=== PATIENT | male | born 1930 | race Caucasian/White ===

== ENCOUNTER 2016-11-14 12:54 | Inpatient (IN) | payer BC ==
[~2016-11-14] VITALS: Ht 177.8 cm; Wt 74.9 kg
[~2016-11-14 12:54] MED LIST: AMLO5 PO; ASPI1TAB69 PO; AVOD0.5C PO; CIPR500T2 PO; METR-1 PO; PRAV20TA PO; TOPR50TA PO
[2016-11-14 13:34] VITALS: BP 137/74; PULSE 71; RESP 16; TEMP 98; O2SAT 94
[2016-11-14] MEDS ORDERED: SODIUM CHLORIDE 0.9% FLUSH 10 ML FLUSH IVF PRN (13:45)
--- NOTE | 2016-11-14 14:12 | PD ---
HPI Chief Complaint: Fall Time Seen by Provider: 13:33 Travel History International Travel<30 days: No Contact w/Intl Traveler<30days: No Traveled to known affect area: No History of Present Illness HPI Some 86-year-old male presents emergency department after a fall. He states he was initially poorly got out and was in his garage weakness when trying soften he fell. He is not really sure what made him fall. Doesn't specifically remember tripping. He fell onto his left side and hurt his left wrist and left hip. States he hit his arm against a shelf on the wall and cut his wrist a little bit. Also states he hit his head against the wall. Is not on any blood thinners. No head pain. No LOC. No significant tenderness on the scalp. He otherwise has been feeling generally well and healthy. No other complaints. History Past Medical History Narrative Medical Hypertension Hyperlipidemia BPH Social History Alcohol Use: Yes (6 VODKA'S A WEEKhe drinks alcohol 3 times per week) Tobacco Use: Yes (1/2 PACK A DAY) Allergies-Medications (Allergen,Severity, Reaction): Coded Allergies: No Known Allergies (Verified , 02/15/16) Reported Meds & Prescriptions Reported Meds & Active Scripts Active Flagyl (Metronidazole) 500 Mg Tab 500 Mg PO BID 10 Days Ciprofloxacin (Ciprofloxacin HCl) 500 Mg Tab 500 Mg PO BID 10 Days Reported Pravachol (Pravastatin) 20 Mg Tab 20 Mg PO DAILY Avodart (Dutasteride) 0.5 Mg Cap 0.5 Mg PO DAILY Toprol XL (Metoprolol Succinate) 50 Mg Tab 50 Mg PO DAILY Aspirin 81 Mg Tabdr 81 Mg PO DAILY Norvasc (Amlodipine Besylate) 5 Mg Tab 5 Mg PO DAILY Review of Systems Except as stated in HPI: all other systems reviewed are Neg Physical Exam Narrative GENERAL: Generally well-appearing 86-year-old man, no acute distress. SKIN: Focused skin assessment warm/dry. HEAD: Atraumatic. Normocephalic. EYES: Pupils equal and round. No scleral icterus. No injection or drainage. ENT: No nasal bleeding or discharge. Mucous membranes pink and moist. NECK: Moves neck freely. No evidence of injury. CARDIOVASCULAR: Regular rate and rhythm. No murmur appreciated. RESPIRATORY: No accessory muscle use. Clear to auscultation. Breath sounds equal bilaterally. GASTROINTESTINAL: Abdomen soft, non-tender, nondistended. Hepatic and splenic margins not palpable. MUSCULOSKELETAL: Left leg is externally rotated and somewhat shortened. He has pain with any range of motion of the hip. Knee is unremarkable and ankles unremarkable. He also has a lot of swelling especially dorsal ecchymosis and swelling on the left wrist. He has pretty preserved range of motion. He is a little bit of pain with palpation on the dorsal side on the radial side of the wrist. There is no tenderness over the snuff box. There is minimal tenderness of axial loading of the thumb. NEUROLOGICAL: Awake and alert. No obvious cranial nerve deficits. Motor grossly within normal limits. Normal speech. PSYCHIATRIC: Appropriate mood and affect; insight and judgment normal. Data Data Last Documented VS Vital Signs Date Time Temp Pulse Resp B/P (MAP) Pulse Ox O2 Delivery O2 Flow Rate FiO2 11/14/16 13:34 98.0 71 16 137/74 (95) 94 Orders Orders Electrocardiogram (11/14/16 13:40) Complete Blood Count With Diff (11/14/16 13:40) Comprehensive Metabolic Panel (11/14/16 13:40) Prothrombin Time / Inr (Pt) (11/14/16 13:40) Act Partial Throm Time (Ptt) (11/14/16 13:40) Urinalysis - C+S If Indicated (11/14/16 13:40) Type And Screen (11/14/16 13:40) Chest, Single Ap (11/14/16 13:40) Hip, Uni(Ap&Lat) W Ap Pelvis (11/14/16 13:40) Iv Access Insert/Monitor (11/14/16 13:40) Oximetry (11/14/16 13:40) Ice/Cold Pack (11/14/16 13:40) Ecg Monitoring (11/14/16 13:40) Sodium Chloride 0.9% Flush (Ns Flush) (11/14/16 13:45) Diet Npo (11/14/16 Lunch) Wrist, Complete ([id number]) (11/14/16 ) [facility] Medical Decision Making Medical Screen Exam Complete: Yes Emergency Medical Condition: Yes Differential Diagnosis Hip fracture, pelvic rami fractures, wrist fracture, other occult injury Narrative Course Medical decision making INITIAL: 86-year-old male for likely hip fracture on the left, possible left wrist fracture. Likely need surgery. We'll check x-rays, chest x-ray, preop labs, reassess. Pain is controlled at this time. Patient was seen in the ambulance call and will go to a medical bed as it is available. Yared Savage MD Nov 14, 2016 14:12
[2016-11-14 14:25] LABS: AUTOMATED NEUTROPHIL # 7.7 TH/MM3 (1.8-7.7); BASOPHIL # 0.1 TH/MM3 (0-0.2); BASOPHIL % 0.8 % (0.0-2.0); EOSINOPHIL # 0.2 TH/MM3 (0-0.4); EOSINOPHIL % 1.8 % (0.0-4.0); HEMATOCRIT 43.4 % (39.0-51.0); HEMO FLAGS DIFF FINAL; LYMPH % 12.9 % (9.0-44.0); LYMPHOCYTE # 1.3 TH/MM3 (1.0-4.8); MEAN CELL VOLUME 90.5 FL (80.0-100.0); MEAN CORPUSCULAR HEMOGLOBIN 31.2 PG (27.0-34.0); MEAN CORPUSCULAR HGB CONC 34.5 % (32.0-36.0); MONO % 8.1 % (0.0-8.0); NEUT % 76.4 % (16.0-70.0); PLATELET COUNT 307 TH/MM3 (150-450); RED CELL DISTRIBUTION WIDTH 13.8 % (11.6-17.2)
[2016-11-14 14:33] LABS: APTT (PATIENT) 27.1 SEC (24.3-30.1); PROTHROMBIN TIME - PATIENT 11.6 SEC (9.8-11.6)
[2016-11-14 14:40] LABS: ALT (GPT) 35 U/L (12-78); ANION GAP 7 MEQ/L (5-15); AST (GOT) 25 U/L (15-37); BICARBONATE 25.6 MEQ/L (21.0-32.0); BLOOD UREA NITROGEN 15 MG/DL (7-18); CHLORIDE 105 MEQ/L (98-107); GLOMERULAR FILTRATION RATE 67 ML/MIN (>89); POTASSIUM 3.9 MEQ/L (3.5-5.1); SODIUM (NA) 138 MEQ/L (136-145)
[2016-11-14 14:42] LABS: ALKALINE PHOSPHATASE 87 U/L (45-117); TOTAL BILIRUBIN ADULT 0.6 MG/DL (0.2-1.0)
[2016-11-14] MEDS ORDERED: MORPHINE SULFATE 4 MG/ML INJ IV PUSH ONE (15:00)
--- NOTE | 2016-11-14 15:44 | RADRPT ---
EXAM DATE/TIME: 11/14/2016 15:14 CORRECTION Corrected on: November 14, 2016; [facility] COMPARISON: HIP LEFT (AP&LAT 2/3VWS) W AP PELVIS, November 14, 2016, 15:14. WRIST LEFT COMPLETE ([id number]), Nov, 15:18. INDICATIONS : Fell today. Left hip and wrist fractures. MEDICAL HISTORY : Hypertension. SURGICAL HISTORY : Appendectomy. Cholecystectomy. ENCOUNTER: Initial ACUITY: 1 day PAIN SCORE: 0/10 LOCATION: Bilateral chest FINDINGS: A single view of the chest demonstrates the lungs to be symmetrically aerated without evidence of mas s, infiltrate or effusion. The cardiomediastinal contours are unremarkable. Osseous structures are intact. CONCLUSION: No acute disease. Sai Olsen MD on November 14, 2016 at 15:42 Board Certified Radiologist. This report was verified electronically. Sai Olsen MD on November 14, 2016 at 15:45 Board Certified Radiologist. This report was verified electronically.
--- NOTE | 2016-11-14 15:45 | RADRPT ---
EXAM DATE/TIME: 11/14/2016 15:14 [facility] COMPARISON: No previous studies available for comparison. INDICATIONS : Fell today getting out of his pool. MEDICAL HISTORY : Hypertension. SURGICAL HISTORY : Appendectomy. Cholecystectomy. ENCOUNTER: Initial ACUITY: 1 day PAIN SCORE: 9/10 LOCATION: Left hip and pelvis FINDINGS: AP and crosstable lateral views of the left hip were obtained and demonstrate a left subcapital hip f racture. The femoral head component is mildly rotated and there is mild superior migration of the fem ur. There is diffuse osteopenia and the acetabulum is intact. CONCLUSION: Left subcapital hip fracture. Sai Olsen MD on November 14, 2016 at 15:42 Board Certified Radiologist. This report was verified electronically.
--- NOTE | 2016-11-14 15:47 | RADRPT ---
EXAM DATE/TIME: 11/14/2016 15:18 [facility] COMPARISON: No previous studies available for comparison. INDICATIONS : Fell today getting out of his pool at home. MEDICAL HISTORY : None. SURGICAL HISTORY : None. ENCOUNTER: Initial ACUITY: 1 day PAIN SCORE: 6/10 LOCATION: Left wrist FINDINGS: AP, lateral and oblique views of the left wrist were obtained and demonstrate a slightly impacted com minuted distal radial fracture with fracture lines extending into the radiocarpal joint. There is a n ondisplaced fracture through the base of the ulnar styloid as well. There is diffuse osteopenia. Dege nerative changes are noted involving the first metacarpocarpal joint with joint space loss and sclero sis. There is overlying soft tissue swelling greatest along the dorsum of the wrist. CONCLUSION: 1. Mildly comminuted distal radial fracture. 2. Racture through the base of the ulnar styloid. Sai Olsen MD on November 14, 2016 at 15:45 Board Certified Radiologist. This report was verified electronically.
[2016-11-14] MEDS ORDERED: ASPI81CH CHEW (16:07)
--- NOTE | 2016-11-14 16:16 | PD ---
HPI Chief Complaint: Fall Time Seen by Provider: 16:16 Travel History International Travel<30 days: No Contact w/Intl Traveler<30days: No Traveled to known affect area: No History of Present Illness HPI 86 YO M with PMH of HTN presents to the ED for evaluation after fall today. The patient states that he had just gotten out of the pool, slipped on wet tile , fell to the left, striking his wrist and hip at the time. Denies hitting his head or LOC. He has been unable to ambulate since the accident. He does not take any blood thinners. He last ate a toaster strudel and coffee at 7 AM today. PFSH Past Medical History Cardiovascular Problems: Yes (HTN) High Cholesterol: Yes Genitourinary: Yes (ENLARGED PROSTATE) Hypertension: Yes Past Surgical History Appendectomy: Yes Cholecystectomy: Yes Eye Surgery: Yes (CATARACTS) Tonsillectomy: Yes Social History Alcohol Use: Yes (he drinks alcohol 3 times per week) Tobacco Use: Yes (1/2 PACK A DAY) Substance Use: No Allergies-Medications (Allergen,Severity, Reaction): Coded Allergies: No Known Allergies (Verified , 02/15/16) Reported Meds & Prescriptions Reported Meds & Active Scripts Active Reported Aspirin 81 Mg Chew 81 Mg CHEW DAILY Pravachol (Pravastatin) 20 Mg Tab 20 Mg PO DAILY Avodart (Dutasteride) 0.5 Mg Cap 0.5 Mg PO DAILY Toprol XL (Metoprolol Succinate) 50 Mg Tab 50 Mg PO DAILY Norvasc (Amlodipine Besylate) 5 Mg Tab 5 Mg PO DAILY Review of Systems Except as stated in HPI: all other systems reviewed are Neg Physical Exam Narrative GENERAL: Well-nourished, well-developed white male in no acute distress. SKIN: Focused skin assessment warm/dry. HEAD: Normocephalic. EYES: No scleral icterus. No injection or drainage. NECK: Supple, trachea midline. No JVD or lymphadenopathy. CARDIOVASCULAR: Regular rate and rhythm without murmurs, gallops, or rubs. RESPIRATORY: Breath sounds equal bilaterally. No accessory muscle use. GASTROINTESTINAL: Abdomen soft, non-tender, nondistended. MUSCULOSKELETAL: No cyanosis, or edema. FOCUSED LEFT UPPER EXTREMITY EXAM: 2+ radial pulse. Ecchymosis noted over the distal wrist. Tender to palpation of the distal radius. Patient is able to wiggle his fingers. Sensation intact to light touch distally. FOCUSED LEFT LOWER EXTREMITY EXAM: 2+ DP pulse. The leg is slightly internally rotated. No obvious shortening. TTP of the anterolateral aspect of the hip. Neurovascularly intact. BACK: Nontender without obvious deformity. No CVA tenderness. Data Data Last Documented VS Vital Signs Date Time Temp Pulse Resp B/P (MAP) Pulse Ox O2 Delivery O2 Flow Rate FiO2 11/14/16 15:57 66 18 96 Room Air 11/14/16 13:34 98.0 137/74 (95) Orders Orders Electrocardiogram (11/14/16 13:40) Complete Blood Count With Diff (11/14/16 13:40) Comprehensive Metabolic Panel (11/14/16 13:40) Prothrombin Time / Inr (Pt) (11/14/16 13:40) Act Partial Throm Time (Ptt) (11/14/16 13:40) Urinalysis - C+S If Indicated (11/14/16 13:40) Type And Screen (11/14/16 13:40) Chest, Single Ap (11/14/16 13:40) Hip, Uni(Ap&Lat) W Ap Pelvis (11/14/16 13:40) Iv Access Insert/Monitor (11/14/16 13:40) Oximetry (11/14/16 13:40) Ice/Cold Pack (11/14/16 13:40) Ecg Monitoring (11/14/16 13:40) Sodium Chloride 0.9% Flush (Ns Flush) (11/14/16 13:45) Diet Npo (11/14/16 Lunch) Wrist, Complete (Fsh2vla) (11/14/16 ) Morphine Inj (Morphine Inj) (11/14/16 15:00) Admit Order (Ed Use Only) (11/14/16 16:50) Consult Orthopedic (11/14/16 ) Admit To Inpatient (11/14/16 ) Vital Signs (Adult) Q4H (11/14/16 16:50) Activity Oob With Assistance (11/14/16 16:50) Diet Heart Healthy (11/14/16 Dinner) Sodium Chlor 0.9% 1000 Ml Inj (Ns 1000 M (11/14/16 17:00) Sodium Chloride 0.9% Flush (Ns Flush) (11/14/16 17:00) Sodium Chloride 0.9% Flush (Ns Flush) (11/14/16 21:00) Acetaminophen (Tylenol) (11/14/16 17:00) Ondansetron Inj (Zofran Inj) (11/14/16 17:00) Resp Oxygen Feroz C Titrat 1-4 L (11/14/16 ) Pt Request For Service (11/14/16 16:50) Scd Bilateral/Knee High MARCO A.BID (11/14/16 16:50) Naloxone Inj (Narcan Inj) (11/14/16 17:00) Docusate Sodium-Senna (Magalie-Colace) (11/14/16 21:00) Magnesium Hydroxide Liq (Milk Of Magnesi (11/14/16 17:00) Sennosides (Senokot) (11/14/16 17:00) Bisacodyl Supp (Dulcolax Supp) (11/14/16 17:00) Lactulose Liq (Lactulose Liq) (11/14/16 17:00) Inpatient Certification (11/14/16 ) Acetamin-Hydrocod 325-5 Mg ([place] 5-325 (11/14/16 17:00) Hydromorphone Pf Inj (Dilaudid Pf Inj) (11/14/16 17:00) Npo After Midnight W/ Po Meds (11/15/16 Breakfast) Labs Laboratory Tests Test 11/14/16 14:02 White Blood Count 10.0 TH/MM3 Red Blood Count 4.80 MIL/MM3 Hemoglobin 15.0 GM/DL Hematocrit 43.4 % Mean Corpuscular Volume 90.5 FL Mean Corpuscular Hemoglobin 31.2 PG Mean Corpuscular Hemoglobin Concent 34.5 % Red Cell Distribution Width 13.8 % Platelet Count 307 TH/MM3 Mean Platelet Volume 7.5 FL Neutrophils (%) (Auto) 76.4 % Lymphocytes (%) (Auto) 12.9 % Monocytes (%) (Auto) 8.1 % Eosinophils (%) (Auto) 1.8 % Basophils (%) (Auto) 0.8 % Neutrophils # (Auto) 7.7 TH/MM3 Lymphocytes # (Auto) 1.3 TH/MM3 Monocytes # (Auto) 0.8 TH/MM3 Eosinophils # (Auto) 0.2 TH/MM3 Basophils # (Auto) 0.1 TH/MM3 CBC Comment DIFF FINAL Differential Comment Prothrombin Time 11.6 SEC Prothromb Time International Ratio 1.0 RATIO Activated Partial Thromboplast Time 27.1 SEC Blood Urea Nitrogen 15 MG/DL Creatinine 1.05 MG/DL Random Glucose 107 MG/DL Total Protein 7.8 GM/DL Albumin 3.9 GM/DL Calcium Level 9.0 MG/DL Alkaline Phosphatase 87 U/L Aspartate Amino Transf (AST/SGOT) 25 U/L Alanine Aminotransferase (ALT/SGPT) 35 U/L Total Bilirubin 0.6 MG/DL Sodium Level 138 MEQ/L Potassium Level 3.9 MEQ/L Chloride Level 105 MEQ/L Carbon Dioxide Level 25.6 MEQ/L Anion Gap 7 MEQ/L Estimat Glomerular Filtration Rate 67 ML/MIN MDM Medical Decision Making Medical Screen Exam Complete: Yes Emergency Medical Condition: Yes Differential Diagnosis fracture versus dislocation versus wrist sprain versus other Narrative Course 86 YO M with PMH of HTN presents to the ED for evaluation after fall today. The patient states that he had just gotten out of the pool, slipped on wet tile , fell to the left, striking his wrist and hip at the time. Denies hitting his head or LOC. He has been unable to ambulate since the accident. He does not take any blood thinners. He last ate a toaster strudel and coffee at 7 AM today. The patient was seen by Dr. Savage in the ambulance lauren. Pain is under control on my eval. Xrays reveal left subcapital hip fracture, comminuted left distal radius fracture and fracture of the base of the ulnar styloid. Left wrist was splinted. I spoke with Dr. Zapata who plans surgery tomorrow morning. He'd liked the patient made nothing by mouth at midnight tonight. Dr. Kyle agrees to accept the patient to the medicine service. See ortho and medicine notes for disposition. Laurel Casanova Nov 14, 2016 16:16
[2016-11-14 17:00] VITALS: BP 130/62; PULSE 70; RESP 14; O2SAT 97
[2016-11-14] MEDS ORDERED: ONDANSETRON HCL 4 MG/2 ML VIAL IVP PRN (17:00)
[2016-11-14] MEDS ORDERED: HYDROmorphone HCL PF 0.5 MG/0.5 ML SYRINGE IV PUSH PRN (17:00)
[2016-11-14] MEDS ORDERED: BISACODYL 10 MG SUPP RECTAL PRN (17:00)
[2016-11-14] MEDS ORDERED: MAGNESIUM HYDROXIDE SUSP 30 ML CUP PO PRN (17:00)
[2016-11-14] MEDS ORDERED: ACETAMINOPHEN/HYDROcodone 325 MG/5 MG TAB PO PRN (17:00)
[2016-11-14] MEDS ORDERED: NALOXONE HCL 0.4 MG/ML AMP IV PRN (17:00)
[2016-11-14] MEDS ORDERED: LACTULOSE SYRUP 20 GM/30 ML CUP PO PRN (17:00)
[2016-11-14] MEDS ORDERED: SENNOSIDES 8.6 MG TAB PO PRN (17:00)
[2016-11-14] MEDS ORDERED: ACETAMINOPHEN 325 MG TAB PO PRN (17:00)
[2016-11-14] MEDS ORDERED: SODIUM CHLORIDE 0.9% FLUSH 10 ML FLUSH IV FLUSH PRN (17:00)
--- NOTE | 2016-11-14 17:04 | HHI.HP ---
[facility] Lucia Yu MD Admission Diagnosis left hip fracture, left wrist fracture Diagnoses: Chief Complaint: Fall Travel History International Travel<30 Days: No Contact w/Intl Traveler <30 Da: No Traveled to Known Affected Are: No History of Present Illness Mr. Thompson is an 86-year-old left handed male with a history of hypertension, hyperlipidemia who presents to the emergency department on 11/14/2016 after a fall. He fell onto his left side and sustained pain on his left wrist and left hip. This morning, patient went into the swimming pool and remained there for a while. Afterwards, he went to his garage and wanted to change into some dry clothes. After he took his wet clothes off, he felt as if something caught his foot and he fell on his left side. He did not have any chest pain, shortness of breath, palpitation prior to his fall. Denies any cough, abdominal pain. Denies any changes in bladder or bowel habits. ED work up indicated left wrist and left hip fracture. Review of Systems Except as stated in HPI: all other systems reviewed are Neg Past Family Social History Past Medical History Hypertension Hyperlipidemia Benign prostatic hyperplasia Past Surgical History Cataract surgery, Appendectomy, Tonsillectomy. Reported Medications Flagyl (Metronidazole) 500 Mg Tab 500 Mg PO BID 10 Days Ciprofloxacin (Ciprofloxacin HCl) 500 Mg Tab 500 Mg PO BID 10 Days Reported Pravachol (Pravastatin) 20 Mg Tab 20 Mg PO DAILY Avodart (Dutasteride) 0.5 Mg Cap 0.5 Mg PO DAILY Toprol XL (Metoprolol Succinate) 50 Mg Tab 50 Mg PO DAILY Aspirin 81 Mg Tabdr 81 Mg PO DAILY Norvasc (Amlodipine Besylate) 5 Mg Tab 5 Mg PO DAILY Allergies: Coded Allergies: No Known Allergies (Verified , 02/15/16) Family History Mother - Alzheimer's disease Father - Aortic Aneurysm Social History Drinks 64 because per week. Smokes half a pack a day. Denies illicit drugs. Physical Exam Vital Signs Vital Signs Date Time Temp Pulse Resp B/P (MAP) Pulse Ox O2 Delivery O2 Flow Rate FiO2 11/14/16 15:57 66 18 96 Room Air 11/14/16 13:34 98.0 71 16 137/74 (95 94 Physical Exam GENERAL: This is a well-nourished, well-developed patient, in no apparent distress. SKIN: No rashes, ecchymoses or lesions. Warm and dry. HEAD: Atraumatic. Normocephalic. No temporal or scalp tenderness. EYES: Pupils equal round and reactive. No injection or drainage. ENT: Nose without bleeding, purulent drainage or septal hematoma. Airway patent. NECK: Trachea midline. No lymphadenopathy. Supple, nontender, no meningeal signs. CARDIOVASCULAR: Regular rate and rhythm without murmurs, gallops, or rubs. No JVD. RESPIRATORY: Clear to auscultation. Breath sounds equal bilaterally. No wheezes , rales, or rhonchi. GASTROINTESTINAL: Abdomen soft, non-tender, nondistended. No guarding. MUSCULOSKELETAL: Extremities without clubbing, cyanosis, or edema. NEUROLOGICAL: Awake and alert. Cranial nerves II through XII intact. No focal neurological deficits. Normal speech. Laboratory Laboratory Tests Test 11/14/16 14:02 White Blood Count 10.0 Red Blood Count 4.80 Hemoglobin 15.0 Hematocrit 43.4 Mean Corpuscular Volume 90.5 Mean Corpuscular Hemoglobin 31.2 Mean Corpuscular Hemoglobin Concent 34.5 Red Cell Distribution Width 13.8 Platelet Count 307 Mean Platelet Volume 7.5 Neutrophils (%) (Auto) 76.4 Lymphocytes (%) (Auto) 12.9 Monocytes (%) (Auto) 8.1 Eosinophils (%) (Auto) 1.8 Basophils (%) (Auto) 0.8 Neutrophils # (Auto) 7.7 Lymphocytes # (Auto) 1.3 Monocytes # (Auto) 0.8 Eosinophils # (Auto) 0.2 Basophils # (Auto) 0.1 CBC Comment DIFF FINAL Differential Comment Prothrombin Time 11.6 Prothromb Time International Ratio 1.0 Activated Partial Thromboplast Time 27.1 Blood Urea Nitrogen 15 Creatinine 1.05 Random Glucose 107 Total Protein 7.8 Albumin 3.9 Calcium Level 9.0 Alkaline Phosphatase 87 Aspartate Amino Transf (AST/SGOT) 25 Alanine Aminotransferase (ALT/SGPT) 35 Total Bilirubin 0.6 Sodium Level 138 Potassium Level 3.9 Chloride Level 105 Carbon Dioxide Level 25.6 Anion Gap 7 Estimat Glomerular Filtration Rate 67 Result Diagram: 11/14/16 1402 11/14/16 1402 Imaging Last Impressions Hip and Pelvis X-Ray 11/14/16 1340 Signed Impressions: Service Date/Time: Monday, November 14, 2016 15:14 - CONCLUSION: Left subcapital hip fracture. Sai Olsen MD Chest X-Ray 11/14/16 1340 Signed Impressions: Service Date/Time: Monday, November 14, 2016 15:14 - CONCLUSION: No acute disease. Sai Olsen MD Wrist X-Ray 11/14/16 0000 Signed Impressions: Service Date/Time: Monday, November 14, 2016 15:18 - CONCLUSION: 1. Mildly comminuted distal radial fracture. 2. Racture through the base of the ulnar styloid. MD Javon Sampson VTE Risk Assessment Caprini VTE Risk Assessment: Mod/High Risk (score >= 2) Caprini Risk Assessment Model Point Value = 1 Point Value = 2 Point Value = 3 Point Value = 5 Age 41-60 Minor surgery BMI > 25 kg/m2 Swollen legs Varicose veins or History of unexplained or recurrent spontaneous Oral contraceptives or hormone replacement Sepsis (< 1 month) Serious lung disease, including pneumonia (< 1 month) Abnormal pulmonary function Acute myocardial infarction Congestive heart failure (< 1 month) History of inflammatory bowel disease Medical patient at bed rest Age 61-74 Arthroscopic surgery Major open surgery (> 45 min) Laparoscopic surgery (> 45 min) Malignancy Confined to bed (> 72 hours) Immobilizing plaster cast Central venous access Age >= 75 History of VTE Family history of VTE Factor V Leiden Prothrombin [id number] Lupus anticoagulant Anticardiolipin antibodies Elevated serum homocysteine Heparin-induced thrombocytopenia Other congenital or acquired thrombophilia Stroke (< 1 month) Elective arthroplasty Hip, pelvis, or leg fracture Acute spinal cord injury (< 1 month) Prophylaxis Regimen Total Risk Factor Score Risk Level Prophylaxis Regimen 0-1 Low Early ambulation 2 Moderate Order ONE of the following: *Sequential Compression Device (SCD) *Heparin 5000 units SQ BID 3-4 Higher Order ONE of the following medications: *Heparin 5000 units SQ TID *Enoxaparin/Lovenox 40 mg SQ daily (WT < 150 kg, CrCl > 30 mL/min) *Enoxaparin/Lovenox 30 mg SQ daily (WT < 150 kg, CrCl > 10-29 mL/min) *Enoxaparin/Lovenox 30 mg SQ BID (WT < 150 kg, CrCl > 30 mL/min) AND/OR *Sequential Compression Device (SCD) 5 or more Highest Order ONE of the following medications: *Heparin 5000 units SQ TID (Preferred with Epidurals) *Enoxaparin/Lovenox 40 mg SQ daily (WT < 150 kg, CrCl > 30 mL/min) *Enoxaparin/Lovenox 30 mg SQ daily (WT < 150 kg, CrCl > 10-29 mL/min) *Enoxaparin/Lovenox 30 mg SQ BID (WT < 150 kg, CrCl > 30 mL/min) AND *Sequential Compression Device (SCD) Assessment and Plan Problem List: (1) Fracture of left hip ICD Code: S72.002A - Fracture of unspecified part of neck of left femur, initial encounter for closed fracture (2) Left wrist fracture ICD Code: S62.102A - Fracture of unspecified carpal bone, left wrist, initial encounter for closed fracture (3) Hyperlipidemia ICD Code: E78.5 - Hyperlipidemia, unspecified (4) Hypertension ICD Code: I10 - Essential (primary) hypertension Assessment and Plan Mr. Thompson is a pleasant 86-year-old male with a history of hypertension, hyperlipidemia who presented to the emergency department after a fall. Radiological studies indicated he sustained left wrist fracture as well as left hip fracture. Orthopedic surgery was consulted and patient is scheduled for surgical intervention on 11/15/2016. - Left hip fracture - Left wrist fracture - Orthopedic surgery consulted. - We'll keep patient nothing by mouth midnight except meds - Acetaminophen, Finley, Dilaudid when necessary for pain. - Post surgical DVT prophylaxis per surgery. - EKG reviewed by me, shows normal sinus rhythm. Low risk for surgery. - Hypertension - Hyperlipidemia - Continue metoprolol succinate 50 mg daily, amlodipine 5 mg daily, pravastatin 20 mg by mouth daily. - Benign prostatic hyperplasia - Continue dutasteride 0.5 mg by mouth daily. - Tobacco use - Alcohol use - Will keep patient on CIWA-r protocol. - Patient does not want nicotine patches. He also does not want to quit smoking. - He was advised by me as well as the orthopedic surgeon to quit smoking as it will help with wound healing. Full code. SCDs. Physician Certification 2 Midnight Certification Type: Admission for Inpatient Services Order for Inpatient Services The services are ordered in accordance with Medicare regulations or non- Medicare payer requirements, as applicable. In the case of services not specified as inpatient-only, they are appropriately provided as inpatient services in accordance with the 2-midnight benchmark. Estimated LOS (days): 3 days is the estimated time the patient will need to remain in the hospital, assuming treatment plan goals are met and no additional complications. Post-Hospital Plan: [facility] Kyle DO Nov 14, 2016 17:04
[2016-11-14] MEDS: SODIUM CHLOR 0.9% 1000 ML INJ 1,000 ML IV SCH (17:23)
[2016-11-14 17:28] LABS: BLOOD, URINE NEG (NEG); COMMENT (UR) CATH-CULT NOT IND; CULTURE IF INDICATED CATH CULTURE NOT IND; GLUCOSE,URINE NEG (NEG); KETONE, URINE 10 mg/dL (NEG); MUCUS URINE FEW /lpf (OCC); NITRITE,URINE NEG (NEG); URINE COLOR YELLOW (YELLW/STRAW)
[2016-11-14] MEDS ORDERED: LORazepam 1 MG TAB PO PRN (17:30)
[2016-11-14] MEDS ORDERED: LORazepam 2 MG TAB PO PRN (17:30)
[2016-11-14] MEDS ORDERED: LORazepam 2 MG/ML VIAL IV PUSH PRN ×4 (17:30)
[2016-11-14] MEDS ORDERED: FLUMAZENIL 0.5 MG/5 ML VIAL IV PUSH PRN (17:30)
[2016-11-14 18:33] VITALS: BP 124/62
[2016-11-14 19:30] VITALS: O2SAT 97
[2016-11-14 20:15] VITALS: BP 146/75; PULSE 75; RESP 17; TEMP 97.8; O2SAT 94
[2016-11-14] MEDS: DOCUSATE SODIUM 50 MG/SENNA 8.6 MG TAB PO SCH (21:01)
[2016-11-14] MEDS: SODIUM CHLORIDE 0.9% FLUSH 10 ML FLUSH IV FLUSH SCH (21:02)
[2016-11-15] VITALS (8 sets, daily range): BP systolic 122–171; BP diastolic 69–83; PULSE 71–90; RESP 17–18; TEMP 95.9–97.5; O2SAT 92–94
[2016-11-15] MEDS ORDERED: CHLORHEXIDINE GLUCONATE 2 % 1 PACK (2 CLOTHS) TOPICAL PRN (02:45)
[2016-11-15] MEDS ORDERED: POVIDONE IODINE 5% (ANTISEPSIS KIT) 4 APPLICATIONS EACH NARE PRN (02:45)
[2016-11-15] MEDS ORDERED: LACTATED RINGER'S 1000 ML IV PRN (02:45)
[2016-11-15] MEDS ORDERED: METOPROLOL TARTRATE 25 MG TAB PO PRN (02:45)
[2016-11-15] MEDS ORDERED: SODIUM CHLORID 0.9% 500 ML IV PRN (02:45)
[2016-11-15] MEDS ORDERED: INSULIN HUMAN REGULAR 1,000 UNITS/10 ML VIAL SQ PRN (02:45)
[2016-11-15] MEDS: SODIUM CHLOR 0.9% 1000 ML INJ 1,000 ML IV SCH ×2 (03:41→14:40)
[2016-11-15] MEDS ORDERED: WALKER WHEELS/F1 MIS (06:52)
[2016-11-15] MEDS ORDERED: COMMODE 3-IN-11 MIS (06:52)
[2016-11-15] MEDS: FINASTERIDE 5 MG TAB PO SCH (09:00)
[2016-11-15] MEDS ORDERED: ASPIRIN 81 MG CHEW TAB CHEW SCH (09:00)
[2016-11-15] MEDS: SODIUM CHLORIDE 0.9% FLUSH 10 ML FLUSH IV FLUSH SCH ×2 (09:00→21:00)
[2016-11-15] MEDS: METOPROLOL SUCCINATE 50 MG EXTENDED RELEASE TAB PO SCH (09:00)
[2016-11-15] MEDS: DOCUSATE SODIUM 50 MG/SENNA 8.6 MG TAB PO SCH ×2 (09:00→22:30)
[2016-11-15] MEDS: amLODIPine BESYLATE 5 MG TAB PO SCH (09:00)
[2016-11-15] MEDS ORDERED: GENTAMICIN SULFATE 80 MG/2 ML VIAL ONE (09:40)
[2016-11-15] MEDS ORDERED: VANCOMYCIN HCL 1000 MG VIAL ONE (09:41)
[2016-11-15] MEDS ORDERED: ceFAZolin 2 GM PREMIX 50 ML ONE (09:41)
[2016-11-15] MEDS ORDERED: BUPIVACAINE HCL PF 0.5% 30 ML VIAL ONE (09:42)
[2016-11-15] MEDS ORDERED: TRANEXAMIC ACID INJ 800 MG in SODIUM CHLORIDE 0.9% INJ 100 ML IV SCH ×2 (09:45→14:10)
[2016-11-15] MEDS ORDERED: FAMOTIDINE 20 MG/2 ML VIAL ONE (09:50)
[2016-11-15] MEDS ORDERED: ACETAMINOPHEN 1000 MG/100 ML 100 ML IV ONE (09:50)
[2016-11-15] MEDS ORDERED: BUPIVACAINE LIPOSO PF 1.3% INJ 20 ML in SODIUM CHLORIDE 0.9% INJ 40 ML IRRIGATION SCH (10:15)
--- NOTE | 2016-11-15 11:53 | MB ---
cc: BRITTNEE GUERRA DATE OF CONSULTATION: 11/15/2016. REASON FOR CONSULTATION: Left hip fracture and left wrist fracture. HISTORY OF PRESENT ILLNESS: The patient is an 86-year-old man who was at his home in his usual state of health when in he went to join a friend in the pool. He got out of the pool. He was getting out of his swim trunks. He tripped landing onto the left hip, the left wrist and hitting his head. The patient denies any loss of consciousness. He denies any problems with the hip in the past. He says he has had a previous fracture of the wrist many years ago that has healed up well without any long-term sequelae. He is left hand dominant. He says he is unable to ambulate. He had pain with any attempts at ambulation. He denies any new numbness or tingling. He denies any shortness of breath or syncope. REVIEW OF SYSTEMS: A twelve-point review of systems is negative except as noted in the history of present illness. PAST MEDICAL HISTORY 1. Hypertension. 2. Hyperlipidemia. 3. Benign prostate hypertrophy. MEDICATIONS: See the chart. He is not on any blood thinners. SOCIAL HISTORY: The patient does smoke half a pack per day for many years. He does drink regularly. FAMILY HISTORY: Noncontributory. PHYSICAL EXAMINATION: VITAL SIGNS: The patient's temperature is 98.0, pulse is 71, respirations 16, blood pressure 137/74. GENERAL: The patient is Awake, alert and oriented times three with normal affect, insight and judgment. He does not appear is a significant amount of distress. HEAD: Atraumatic. OROPHARYNX: Moist. EYES: Extraocular muscles intact. NECK: The neck is supple. HEART: Regular rate and rhythm. LUNGS: Clear to auscultation bilaterally. ABDOMEN: The abdomen is soft, nontender and nondistended. BACK: No costovertebral angle tenderness. EXTREMITIES: Examination of the left upper extremity shows he does have deformity of the wrist of a moderate degree with some mild swelling. No wounds were noted on the volar aspect of the wrist. He can move the fingers but somewhat limited. He has brisk capillary refill about the digits. Normal sensation distally. He has no tenderness about the elbow or the shoulder. The right upper extremity, shoulder, elbow and wrist have good range of motion actively. The right knee and right ankle have normal alignment. No tenderness. No swelling. The left leg is held shortened and rotated. There is mild swelling about the left hip. No wounds were noted anterolaterally. He can move the toes very well. He has 1+ dorsalis pedis pulse with brisk capillary refill about the toes. LABORATORY STUDIES: White cell count of 10.0, hematocrit 43.4, platelet count of 307,000. Glucose 107, creatinine 1.05. RADIOLOGICAL STUDIES: I did review the images myself along with the reports, which shows that the left wrist has a comminuted distal radius fracture intraarticular which is displaced and angulated of a mild to moderate degree. There is a fracture of the base of the ulnar styloid as well. X-rays of the left hip show displaced femoral neck fracture. IMPRESSION: 1. Displaced femoral neck fracture left side. 2. Left distal radius fracture intraarticular three-part displaced and angulated. DECISION-MAKING: This is a complicated situation especially given that he has had polytrauma to multiple different extremities. I do recommend surgical management because nonoperative management would likely lead to very significant dysfunction. He likely would not be able to walk effectively without surgical management. Additionally, he has deformity of the wrist and would likely develop pain and some loss of function with loss of quartz orientator strength. The patient is left hand dominant. I have recommended surgery on the left wrist, especially because he requires surgery on the left hip and during his recuperative period, he will likely need the left wrist for use of a platform walker, which I feel would be likely more effective with fixation of the wrist and also there would be less chance of having displacement of the fracture if we do move forward with definitive fixation. For the left hip, I recommend left hip hemiarthroplasty and for the left wrist, I recommend open reduction internal fixation with plate and screws. The patient understands that there are risks associated with each of these surgeries that are somewhat unique to the individual areas and somewhat generalized and global such as injury to nerves, blood vessels, bleeding, infection, failure of hardware, need for re-operation, continued pain, loss of range of motion of associated joints, leg length inequality, hip dislocation, inability to ambulate, weakness of the hand, numbness of the hand or the lower leg, DVT, pulmonary embolus, pneumonia and . The patient's medical physician hospitalist who is admitting this patient was at the bedside at the same time that I was and we discussed and it sounds like he is going to be able to get cleared for surgical management for the morning. The patient will be NPO and he is having a splint applied to his left arm. MD TIA Kay/SANTA /5:25 PM /11:29 AM
[2016-11-15] MEDS ORDERED: NORC5TAB PO (11:57)
[2016-11-15] MEDS ORDERED: ENOX40P SQ (11:57)
[2016-11-15] MEDS ORDERED: ASPI325T PO (11:57)
[2016-11-15] MEDS ORDERED: ALUMINUM/MAGNESIUM/SIMETH 30 ML CUP PO PRN (12:00)
[2016-11-15] MEDS ORDERED: MAGNESIUM HYDROXIDE SUSP 30 ML CUP PO PRN (12:00)
[2016-11-15] MEDS ORDERED: ACETAMINOPHEN/HYDROcodone 325 MG/5 MG TAB PO PRN ×2 (12:00)
[2016-11-15] MEDS ORDERED: ONDANSETRON HCL 4 MG/2 ML VIAL IV PUSH ONE (12:00)
[2016-11-15] MEDS ORDERED: SODIUM CHLORIDE 0.9% FLUSH 5 ML FLUSH IVF PRN (12:00)
[2016-11-15] MEDS ORDERED: ZOLPIDEM TARTRATE 5 MG TAB PO PRN (12:00)
[2016-11-15] MEDS ORDERED: MIDAZOLAM HCL 2 MG/2 ML VIAL IV ONE (12:00)
[2016-11-15] MEDS ORDERED: PROPOFOL 200 MG/20 ML AMP IV ONE (12:00)
[2016-11-15] MEDS ORDERED: NALOXONE HCL 0.4 MG/ML AMP IV PRN (12:00)
[2016-11-15] MEDS ORDERED: NEOSTIGMINE 3 MG/3 ML SYR IV ONE (12:00)
[2016-11-15] MEDS ORDERED: diphenhydrAMINE HCL 50 MG/ML VIAL IV PRN (12:00)
[2016-11-15] MEDS ORDERED: ENOXAPARIN SODIUM 40 MG/0.4 ML SYRINGE SQ SCH (12:00)
[2016-11-15] MEDS ORDERED: Post-op Orders (for Pharmacy) MISC XX ONE (12:00)
[2016-11-15] MEDS ORDERED: MORPHINE SULFATE 4 MG/ML INJ IV PUSH PRN (12:00)
[2016-11-15] MEDS ORDERED: ONDANSETRON HCL 4 MG/2 ML VIAL IVP PRN (12:00)
[2016-11-15] MEDS ORDERED: BISACODYL 10 MG SUPP RECTAL PRN (12:00)
--- NOTE | 2016-11-15 12:11 | PD.OP ---
cc: Michoacano Zapata MD Operative Report Date of Surgery: Nov 15, 2016 Preoperative Diagnosis: Left hip displaced femoral neck fracture. Left distal radius fracture intra-articular three-part Postoperative Diagnosis: Same Procedure: Left hip treatment of displaced femoral neck fracture with hemiarthroplasty. Left distal radius fracture open reduction and internal fixation of three-part intra-articular fracture Anesthesia: Gen. Surgeon: Michoacano Zapata Welder Repair(s): JOSE Savage The surgical procedure was assisted by my Advanced Registered Nurse Practitioner. My ROLLER SKATES ASSEMBLER presence was necessary throughout this case for the manipulation and positioning of the surgical extremity. My ROLLER SKATES ASSEMBLER was assisting me throughout the duration of this procedure. The skill set of an Advance Registered Nurse Practitioner was medically necessary to complete this procedure. During the surgical case, the director surgical was working at the back table and the Advance Registered Nurse Practitioner was directly assisting me. Operation and Findings: IMPLANT DESCRIPTION: Hip: 1. Corail femoral stem size 14, no collar, standard offset. 2. Bipolar femoral head/neck 52, +1.5 Wrist: 1. Synthes precontoured distal radius plate ESTIMATED BLOOD LOSS: 150 cc. Tourniquet time: 15 minutes at 250 mmHg of pressure left upper extremity The patient received intravenous vancomycin and Ancef. JUSTIFICATION FOR PROCEDURE: This patient has a displaced femoral neck fracture and a displaced distal radius fracture. The patient understands the risks of surgery include but are not limited to injury to nerves, blood vessels, bleeding, infection, leg length discrepancy, continued pain, inability to ambulate, DVT, pulmonary embolus, pneumonia, stroke, heart attack, and . PROCEDURE: The patient was brought back to the operative theatre. Adequate anesthesia was obtained. The patient was carefully placed on the operative table in the lateral decubitus position with an axillary roll and a well-padded down leg. The lower extremity was prepped and draped in the usual sterile fashion. We proceeded with a standard curvilinear incision centered around the tip of the greater trochanter. We then dissected through the deep fascia and placed a Charnley retractor protecting the sciatic nerve. The greater trochanteric bursa was reflected. We then incised through the piriformis attachment and tagged this with a #2 FiberWire. We then incised through the capsule in a T- shaped fashion and tagged this with a #2 FiberWire as well. We identified a displaced femoral neck fracture. An osteotomy was performed through the residual femoral neck. This bone was then removed followed by removal of the femoral head. The acetabulum was inspected and adequate cartilage stock was identified. We then trialed the femoral head in the acetabulum. The proximal femur was prepared with a rongeur, then a box osteotome, then a canal finder followed by a lateralizing reamer. We sequentially broached the proximal femur. We calcar planed the proximal femur and irrigated removing any remnants of the bone. We trialed the hip with the broach in place. The final femoral stem was impacted into position. Leg lengths were evaluated. We evaluated stability of the hip with the hip in the "position of sleep" and the hip flexed up to 90 and internally rotated. We additionally tested both a "shuck" test and hip extension, confirming there was no undue tension while flexing the knee to 90 during full hip extension. The final bipolar head was impacted and the hip was reduced. Once again we irrigated. We then repaired the capsule and the piriformis with the FiberWire suture. The deep fascia was closed with a #2 Stratafix, followed by 2-0 Vicryl and Dermabond dressing. We took down all of the drapes and exchanged instruments. The patient was placed into the supine position. A well-padded nonsterile tourniquet was applied. The left upper extremity was prepped and draped in usual sterile fashion. Local anesthetic was given, and the arm was exsanguinated. The tourniquet was raised to 250 mmHg of pressure. We made a standard incision over the volar aspect of the forearm. We then dissected through the flexor carpi radialis sub- sheath. The pronator quadratus was reflected. We now visualized the distal radius fracture very well. The fracture was anatomically reduced both visually and via fluoroscopy. We provisionally held the fracture reduced and then applied a Synthes precontoured distal radius plate into the appropriate position. The plate was secured to the distal radius first with the sliding screw hole. This was then followed by locking screws distally and proximally. We took final fluoroscopic imaging of the wrist. We found no intra-articular penetration of the screws. The patient had full range of motion of the wrist with no crepitus. The tourniquet was released and hemostasis was achieved. The patient had a 2+ radial pulse. We irrigated the incision thoroughly. We then closed skin with 2 -0 Vicryl followed by 3-0 nylon. The arm was dressed and a volar splint was applied. The postoperative plan for the wrist is to start early range of motion of the wrist. The post-op plan for the hip is to start weight-bear as tolerated, with the use of a platform walker. We will follow posterior total hip precautions, including the use of a canvas knee splint. DVT prophylaxis will be performed with SCDs, EMILY king, early mobilization, and Lovenox followed by aspirin. Michoacano Zapata MD Nov 15, 2016 12:11
[2016-11-15] MEDS ORDERED: DO NOT ADM ANY ANTICOAGULANT DRUGS PRN (13:12)
[2016-11-15] MEDS ORDERED: RESP: ALBUTEROL 2.5 MG/3 ML NEB (PRN) ONE (13:25)
--- NOTE | 2016-11-15 15:00 | RADRPT ---
EXAM DATE/TIME: 11/15/2016 12:46 [facility] COMPARISON: No previous studies available for comparison. INDICATIONS : ORIF left wrist. MEDICAL HISTORY : None. SURGICAL HISTORY : None. ENCOUNTER: Initial ACUITY: 1 day PAIN SCORE: Non-responsive. LOCATION: Left wrist FINDINGS: Anatomic alignment fine ORIF distal radius. CONCLUSION: Anatomic alignment Frankie Bravo MD FACR on November 15, 2016 at 14:58 Board Certified Radiologist. This report was verified electronically.
--- NOTE | 2016-11-15 16:10 | RADRPT ---
EXAM DATE/TIME: 11/15/2016 15:12 [facility] COMPARISON: HIP LEFT (AP&LAT 2/3VWS) W AP PELVIS, November 14, 2016, 15:14. INDICATIONS : Post operative x-ray. MEDICAL HISTORY : Hypertension. SURGICAL HISTORY : Appendectomy. Cholecystectomy. ENCOUNTER: Initial ACUITY: 1 day PAIN SCORE: Non-responsive. LOCATION: Left Hip and Pelvis. 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 Prosthesis is well-sea ana maría. Alignment is anatomic. A fracture is not appreciated. CONCLUSION: Anatomic alignment. Frankie Bravo MD FACR Board Certified Radiologist. This report was verified electronically.
--- NOTE | 2016-11-15 17:39 | HHI.PR ---
Subjective Remarks Follow up for left hip fracture and left wrist fracture following a fall. Patient underwent surgical intervention today. Per RN, he was somewhat agitated after surgery. However, currently resting in bed. Objective Vitals Vital Signs Date Time Temp Pulse Resp B/P (MAP) Pulse Ox O2 Delivery O2 Flow Rate FiO2 11/15/16 16:00 95.9 83 17 133/69 (90) 93 11/15/16 15:15 97.4 77 16 133/64 (87) 95 Nasal Cannula 4 11/15/16 15:00 73 16 114/64 (81) 93 Nasal Cannula 4 11/15/16 14:51 Nasal Cannula 4.00 11/15/16 14:45 72 16 120/65 (83) 93 Nasal Cannula 4 11/15/16 14:30 75 18 142/65 (90) 94 Nasal Cannula 4 11/15/16 14:15 74 18 152/66 (94) 94 Nasal Cannula 4 11/15/16 14:00 81 22 145/60 (88) 98 Nasal Cannula 4 11/15/16 13:45 75 24 140/77 (98) 96 Aerosol Mask 8 11/15/16 13:31 97.0 82 20 142/80 (100) 84 Nasal Cannula 4 11/15/16 07:33 97.4 78 18 169/76 (107) 94 11/15/16 04:15 97.5 71 17 171/81 (111) 93 11/15/16 01:42 93 Nasal Cannula 2.00 11/15/16 00:40 96.8 76 17 135/75 (95) 92 11/14/16 20:15 97.8 75 17 146/75 (98) 94 11/14/16 19:30 97 11/14/16 19:08 Room Air 11/14/16 18:33 74 16 124/62 (82) 98 I/O 11/14/16 11/14/16 11/14/16 11/15/16 11/15/16 11/15/16 07:00 15:00 23:00 07:00 15:00 23:00 Intake Total 240 ml 570 ml 1600 ml 41 ml Output Total 100 ml 250 ml 870 ml 175 ml Balance 140 ml 320 ml 730 ml -134 ml Intake Oral 240 ml 0 ml 0 ml IV Total 570 ml 1600 ml 41 ml Output Urine Total 100 ml 250 ml 750 ml 175 ml Estimated Blood Loss 120 ml # Bowel Movements 0 0 0 Result Diagram: 11/14/16 1402 11/14/16 1402 Imaging Last Impressions Hip and Pelvis X-Ray 11/15/16 1149 Signed Impressions: Service Date/Time: Tuesday, November 15, 2016 15:12 - CONCLUSION: Anatomic alignment. Frankie Bravo MD Wrist X-Ray 11/15/16 0000 Signed Impressions: Service Date/Time: Tuesday, November 15, 2016 12:46 - CONCLUSION: Anatomic alignment Frankie Bravo MD FACR Chest X-Ray 11/14/16 1340 Signed Impressions: Service Date/Time: Monday, November 14, 2016 15:14 - CONCLUSION: No acute disease. Sai Olsen MD Objective Remarks GENERAL: Sleeping, NAD. SKIN: Warm and dry. HEAD: Normocephalic. EYES: No scleral icterus. No injection or drainage. NECK: Supple, trachea midline. No JVD or lymphadenopathy. CARDIOVASCULAR: Regular rate and rhythm without murmurs, gallops, or rubs. RESPIRATORY: Breath sounds equal bilaterally. No accessory muscle use. GASTROINTESTINAL: Abdomen soft, non-tender, nondistended. MUSCULOSKELETAL: No cyanosis, or edema. s/p left wrist, left hip surgery. BACK: Nontender without obvious deformity. No CVA tenderness. Procedures 11/15/2016 Left hip treatment of displaced femoral neck fracture with hemiarthroplasty. Left distal radius fracture open reduction and internal fixation of three-part intra-articular fracture A/P Problem List: (1) Fracture of left hip ICD Code: S72.002A - Fracture of unspecified part of neck of left femur, initial encounter for closed fracture (2) Left wrist fracture ICD Code: S62.102A - Fracture of unspecified carpal bone, left wrist, initial encounter for closed fracture (3) Hyperlipidemia ICD Code: E78.5 - Hyperlipidemia, unspecified (4) Hypertension ICD Code: I10 - Essential (primary) hypertension Assessment and Plan Mr. Thompson is a pleasant 86-year-old male with a history of hypertension, hyperlipidemia who presented to the emergency department after a fall. Radiological studies indicated he sustained left wrist fracture as well as left hip fracture. Orthopedic surgery was consulted and patient is scheduled for surgical intervention on 11/15/2016. - Left hip fracture - Left wrist fracture - Orthopedic surgery consulted. Patient underwent left hip and left wrist surgery on 11/15/2016. - Acetaminophen, Candia, Dilaudid when necessary for pain. - Post surgical DVT prophylaxis with Lovenox. - Hypertension - Hyperlipidemia - Continue metoprolol succinate 50 mg daily, amlodipine 5 mg daily, pravastatin 20 mg by mouth daily. - Benign prostatic hyperplasia - Continue dutasteride 0.5 mg by mouth daily. - Tobacco use - Alcohol use - Will keep patient on CIWA-r protocol. - Patient does not want nicotine patches. He also does not want to quit smoking. - He was advised by me as well as the orthopedic surgeon to quit smoking as it will help with wound healing. Full code. SCDs. Problem Qualifiers (1) Fracture of left hip: Qualified Codes: S72.002A - Fracture of unspecified part of neck of left femur , initial encounter for closed fracture (2) Left wrist fracture: Qualified Codes: S62.102A - Fracture of unspecified carpal bone, left wrist, initial encounter for closed fracture Bright Kyle DO Nov 15, 2016 17:39
[2016-11-15] MEDS: SODIUM CHLORIDE 0.9% FLUSH 5 ML FLUSH IVF SCH (21:00)
--- NOTE | 2016-11-15 21:33 | EKG ---
Date Performed: 11/14/2016 Time Performed: 20:33:24 PTAGE: 86 years EKG: Sinus rhythm NONSPECIFIC T-WAVE ABNORMALITY BORDERLINE ECG PREVIOUS TRACING : 11/14/2016 14.20 Compared to prior tracing no significant change DOCTOR: Iwona Pena Interpretating Date/Time 11/15/2016 21:31:19
--- NOTE | 2016-11-15 21:50 | EKG ---
Date Performed: 11/14/2016 Time Performed: 14:20:09 PTAGE: 86 years EKG: Sinus rhythm NORMAL ECG PREVIOUS TRACING : 02/15/2016 06.24 Compared to prior tracing no significant change DOCTOR: Iwona Pena Interpretating Date/Time 11/15/2016 21:50:30
[2016-11-15] MEDS: PRAVASTATIN SOD 20 MG TAB PO SCH (22:30)
[2016-11-16] MEDS: SODIUM CHLOR 0.9% 1000 ML INJ 1,000 ML IV SCH ×4 (01:11→20:50)
[2016-11-16 03:26] VITALS: BP 136/75; PULSE 80; RESP 18; TEMP 98.4; O2SAT 92
[2016-11-16 07:46] VITALS: BP 151/69; PULSE 82; RESP 19; TEMP 98.2; O2SAT 93
[2016-11-16 08:26] LABS: HEMATOCRIT 39.4 % (39.0-51.0); MEAN CELL VOLUME 91.8 FL (80.0-100.0); MEAN CORPUSCULAR HEMOGLOBIN 31.3 PG (27.0-34.0); MEAN CORPUSCULAR HGB CONC 34.1 % (32.0-36.0); PLATELET COUNT 329 TH/MM3 (150-450); RED CELL DISTRIBUTION WIDTH 13.7 % (11.6-17.2); REVIEW FLAG FINAL; WHITE BLOOD COUNT 16.7 TH/MM3 (4.0-11.0)
[2016-11-16] MEDS: SODIUM CHLORIDE 0.9% FLUSH 10 ML FLUSH IV FLUSH SCH ×2 (09:00→20:50)
[2016-11-16] MEDS: SODIUM CHLORIDE 0.9% FLUSH 5 ML FLUSH IVF SCH ×2 (09:00→20:49)
[2016-11-16] MEDS: amLODIPine BESYLATE 5 MG TAB PO SCH (09:20)
[2016-11-16] MEDS: METOPROLOL SUCCINATE 50 MG EXTENDED RELEASE TAB PO SCH (09:20)
[2016-11-16] MEDS: FINASTERIDE 5 MG TAB PO SCH (09:20)
[2016-11-16] MEDS: DOCUSATE SODIUM 50 MG/SENNA 8.6 MG TAB PO SCH ×2 (09:20→20:49)
[2016-11-16 11:40] VITALS: BP 149/76; PULSE 86; RESP 19; TEMP 97.6; O2SAT 91
--- NOTE | 2016-11-16 12:38 | PD.ORT.PN ---
Subjective Post Op Day #: 1 Subjective Remarks The patient is OOB in chair with family/friend at bedside. Patient reports mild to moderate left hip pain and mild left wrist pain. Patient states the plan is for him to go to [facility]. Objective Vitals Vital Signs Date Time Temp Pulse Resp B/P (MAP) Pulse Ox O2 Delivery O2 Flow Rate FiO2 11/16/16 11:40 97.6 86 19 149/76 (100) 91 11/16/16 11:04 Nasal Cannula 2.00 11/16/16 10:20 18 11/16/16 07:46 98.2 82 19 151/69 (96) 93 11/16/16 03:26 98.4 80 18 136/75 (95) 92 11/15/16 23:47 96.8 88 18 154/78 (103) 92 11/15/16 20:59 92 Nasal Cannula 2.00 11/15/16 20:00 Nasal Cannula 2.00 11/15/16 19:06 96.7 90 18 122/83 (96) 93 11/15/16 18:08 93 Nasal Cannula 2.00 11/15/16 16:00 95.9 83 17 133/69 (90) 93 11/15/16 15:15 97.4 77 16 133/64 (87) 95 Nasal Cannula 4 11/15/16 15:00 73 16 114/64 (81) 93 Nasal Cannula 4 11/15/16 14:51 Nasal Cannula 4.00 11/15/16 14:45 72 16 120/65 (83) 93 Nasal Cannula 4 11/15/16 14:30 75 18 142/65 (90) 94 Nasal Cannula 4 11/15/16 14:15 74 18 152/66 (94) 94 Nasal Cannula 4 11/15/16 14:00 81 22 145/60 (88) 98 Nasal Cannula 4 11/15/16 13:45 75 24 140/77 (98) 96 Aerosol Mask 8 11/15/16 13:31 97.0 82 20 142/80 (100) 84 Nasal Cannula 4 I/O 11/15/16 11/15/16 11/15/16 11/16/16 11/16/16 11/16/16 07:00 15:00 23:00 07:00 15:00 23:00 Intake Total 570 ml 1600 ml 401 ml 1896 ml Output Total 250 ml 870 ml 525 ml 350 ml Balance 320 ml 730 ml -124 ml 1546 ml Intake Oral 0 ml 0 ml 360 ml 240 ml IV Total 570 ml 1600 ml 41 ml 1656 ml Output Urine Total 250 ml 750 ml 525 ml 350 ml Estimated Blood Loss 120 ml # Bowel Movements 0 0 0 0 Result Diagram: 11/16/16 0734 11/14/16 1402 Procedures Left hip hemiarthroplasty Left distal radius fracture with ORIF Objective Remarks LUE Splint C/D/I to left wrist. Patient moves fingers and has good sensation x 5. BCR X 5. LLE Dressing is C/D/I to the left hip. EHL/TA/G intact. 2+ pedal pulse. Calf is soft and nontender. + SILT. Assessment & Plan Ortho Post Op Day #: 1 Problem List: Assessment and Plan POD #1: Left hip hemiarthroplasty Left distal radius fracture with ORIF 1. WBAT LLE, NWB LUE 2. Platform walker for ambulation 3. Posterior hip precautions for the left hip 4. Lovenox followed by ASA for DVT prophylaxis 5. Maintain splint to LUE 6. F/U in the office in [address] Zapata or JOSE Brennan 7. Plan is for discharge to [place] [facility]. Trav Rojas Nov 16, 2016 12:38
--- NOTE | 2016-11-16 13:31 | HHI.PR ---
Subjective Remarks Follow-up for left hip fracture and left wrist fracture. Patient is currently doing well. Denies any acute concerns. No fever or chills. No bowel movement yet. Objective Vitals Vital Signs Date Time Temp Pulse Resp B/P (MAP) Pulse Ox O2 Delivery O2 Flow Rate FiO2 11/16/16 11:40 97.6 86 19 149/76 (100) 91 11/16/16 11:04 Nasal Cannula 2.00 11/16/16 10:20 18 11/16/16 07:46 98.2 82 19 151/69 (96) 93 11/16/16 03:26 98.4 80 18 136/75 (95) 92 11/15/16 23:47 96.8 88 18 154/78 (103) 92 11/15/16 20:59 92 Nasal Cannula 2.00 11/15/16 20:00 Nasal Cannula 2.00 11/15/16 19:06 96.7 90 18 122/83 (96) 93 11/15/16 18:08 93 Nasal Cannula 2.00 11/15/16 16:00 95.9 83 17 133/69 (90) 93 11/15/16 15:15 97.4 77 16 133/64 (87) 95 Nasal Cannula 4 11/15/16 15:00 73 16 114/64 (81) 93 Nasal Cannula 4 11/15/16 14:51 Nasal Cannula 4.00 11/15/16 14:45 72 16 120/65 (83) 93 Nasal Cannula 4 11/15/16 14:30 75 18 142/65 (90) 94 Nasal Cannula 4 11/15/16 14:15 74 18 152/66 (94) 94 Nasal Cannula 4 11/15/16 14:00 81 22 145/60 (88) 98 Nasal Cannula 4 11/15/16 13:45 75 24 140/77 (98) 96 Aerosol Mask 8 11/15/16 13:31 97.0 82 20 142/80 (100) 84 Nasal Cannula 4 I/O 11/15/16 11/15/16 11/15/16 11/16/16 11/16/16 11/16/16 07:00 15:00 23:00 07:00 15:00 23:00 Intake Total 570 ml 1600 ml 401 ml 1896 ml Output Total 250 ml 870 ml 525 ml 350 ml Balance 320 ml 730 ml -124 ml 1546 ml Intake Oral 0 ml 0 ml 360 ml 240 ml IV Total 570 ml 1600 ml 41 ml 1656 ml Output Urine Total 250 ml 750 ml 525 ml 350 ml Estimated Blood Loss 120 ml # Bowel Movements 0 0 0 0 Result Diagram: 11/16/16 0734 11/14/16 1402 Imaging Last Impressions Hip and Pelvis X-Ray 11/15/16 1149 Signed Impressions: Service Date/Time: Tuesday, November 15, 2016 15:12 - CONCLUSION: Anatomic alignment. Frankie Bravo MD Wrist X-Ray 11/15/16 0000 Signed Impressions: Service Date/Time: Tuesday, November 15, 2016 12:46 - CONCLUSION: Anatomic alignment Frankie Bravo MD FACR Chest X-Ray 11/14/16 1340 Signed Impressions: Service Date/Time: Monday, November 14, 2016 15:14 - CONCLUSION: No acute disease. Sai Olsen MD Objective Remarks GENERAL: Sleeping, NAD. SKIN: Warm and dry. HEAD: Normocephalic. EYES: No scleral icterus. No injection or drainage. NECK: Supple, trachea midline. No JVD or lymphadenopathy. CARDIOVASCULAR: Regular rate and rhythm without murmurs, gallops, or rubs. RESPIRATORY: Breath sounds equal bilaterally. No accessory muscle use. GASTROINTESTINAL: Abdomen soft, non-tender, nondistended. MUSCULOSKELETAL: No cyanosis, or edema. s/p left wrist, left hip surgery. BACK: Nontender without obvious deformity. No CVA tenderness. Procedures 11/15/2016 Left hip treatment of displaced femoral neck fracture with hemiarthroplasty. Left distal radius fracture open reduction and internal fixation of three-part intra-articular fracture A/P Problem List: (1) Fracture of left hip ICD Code: S72.002A - Fracture of unspecified part of neck of left femur, initial encounter for closed fracture (2) Left wrist fracture ICD Code: S62.102A - Fracture of unspecified carpal bone, left wrist, initial encounter for closed fracture (3) Hyperlipidemia ICD Code: E78.5 - Hyperlipidemia, unspecified (4) Hypertension ICD Code: I10 - Essential (primary) hypertension Assessment and Plan Mr. Thompson is a pleasant 86-year-old male with a history of hypertension, hyperlipidemia who presented to the emergency department after a fall. Radiological studies indicated he sustained left wrist fracture as well as left hip fracture. Orthopedic surgery was consulted and patient is scheduled for surgical intervention on 11/15/2016. - Left hip fracture - Left wrist fracture - Orthopedic surgery consulted. Status post Left hip hemiarthroplasty, Left distal radius fracture with ORIF on 11/15/2016. - Acetaminophen, [place], Dilaudid when necessary for pain. - Post surgical DVT prophylaxis with Lovenox. - Hypertension - Hyperlipidemia - Continue metoprolol succinate 50 mg daily, amlodipine 5 mg daily, pravastatin 20 mg by mouth daily. - Benign prostatic hyperplasia - Continue dutasteride 0.5 mg by mouth daily. - Tobacco use - Alcohol use - Will keep patient on CIWA-r protocol. - Patient does not want nicotine patches. He also does not want to quit smoking. - He was advised by me as well as the orthopedic surgeon to quit smoking as it will help with wound healing. Full code. SCDs. Probable discharge to [facility] when cleared by orthopedic surgery. Problem Qualifiers (1) Fracture of left hip: Qualified Codes: S72.002A - Fracture of unspecified part of neck of left femur , initial encounter for closed fracture (2) Left wrist fracture: Qualified Codes: S62.102A - Fracture of unspecified carpal bone, left wrist, initial encounter for closed fracture Bright Kyle DO Nov 16, 2016 1:31 pm
[2016-11-16] MEDS: ENOXAPARIN SODIUM 40 MG/0.4 ML SYRINGE SQ SCH (15:21)
[2016-11-16 15:44] VITALS: BP 141/73; PULSE 83; RESP 19; TEMP 97.8; O2SAT 94
[2016-11-16 19:00] VITALS: BP 137/70; PULSE 83; RESP 18; TEMP 98.4; O2SAT 97
[2016-11-16] MEDS: MULTIVITAMINS/MINERALS THERAPEUTIC TAB PO SCH (20:49)
[2016-11-16] MEDS: PRAVASTATIN SOD 20 MG TAB PO SCH (20:49)
[2016-11-16] MEDS ORDERED: DOCUSATE SODIUM 100 MG CAP PO SCH (21:00)
[2016-11-17 00:59] VITALS: BP 141/70; PULSE 82; RESP 18; TEMP 97.9; O2SAT 98
[2016-11-17 06:23] LABS: HEMATOCRIT 39.1 % (39.0-51.0); MEAN CORPUSCULAR HEMOGLOBIN 31.3 PG (27.0-34.0); MEAN CORPUSCULAR HGB CONC 34.4 % (32.0-36.0); PLATELET COUNT 305 TH/MM3 (150-450); RED BLOOD COUNT 4.29 MIL/MM3 (4.50-5.90); RED CELL DISTRIBUTION WIDTH 13.4 % (11.6-17.2); REVIEW FLAG FINAL; WHITE BLOOD COUNT 16.3 TH/MM3 (4.0-11.0)
[2016-11-17 08:00] VITALS: BP 150/79; PULSE 76; RESP 18; TEMP 96; O2SAT 96
[2016-11-17] MEDS: METOPROLOL SUCCINATE 50 MG EXTENDED RELEASE TAB PO SCH (08:50)
[2016-11-17] MEDS: SODIUM CHLORIDE 0.9% FLUSH 10 ML FLUSH IV FLUSH SCH (08:50)
[2016-11-17] MEDS: FINASTERIDE 5 MG TAB PO SCH (08:50)
[2016-11-17] MEDS: DOCUSATE SODIUM 50 MG/SENNA 8.6 MG TAB PO SCH (08:50)
[2016-11-17] MEDS: amLODIPine BESYLATE 5 MG TAB PO SCH (08:50)
[2016-11-17] MEDS: MULTIVITAMINS/MINERALS THERAPEUTIC TAB PO SCH (08:50)
[2016-11-17] MEDS: SODIUM CHLORIDE 0.9% FLUSH 5 ML FLUSH IVF SCH (08:50)
--- NOTE | 2016-11-17 10:42 | HHI.DS ---
Discharge Summary Admission Date Nov 14, 2016 at 4:53 pm Discharge Date: Nov 17, 2016 Admitting Diagnosis left hip fracture, left wrist fracture (1) Fracture of left hip ICD Code: S72.002A - Fracture of unspecified part of neck of left femur, initial encounter for closed fracture Diagnosis: Principal (2) Left wrist fracture ICD Code: S62.102A - Fracture of unspecified carpal bone, left wrist, initial encounter for closed fracture Diagnosis: Principal (3) Hyperlipidemia ICD Code: E78.5 - Hyperlipidemia, unspecified (4) Hypertension ICD Code: I10 - Essential (primary) hypertension Procedures 11/15/2016 Left hip treatment of displaced femoral neck fracture with hemiarthroplasty. Left distal radius fracture open reduction and internal fixation of three-part intra-articular fracture Brief History - From Admission Mr. Thompson is an 86-year-old left handed male with a history of hypertension, hyperlipidemia who presents to the emergency department on 11/14/2016 after a fall. He fell onto his left side and sustained pain on his left wrist and left hip. This morning, patient went into the swimming pool and remained there for a while. Afterwards, he went to his garage and wanted to change into some dry clothes. After he took his wet clothes off, he felt as if something caught his foot and he fell on his left side. He did not have any chest pain, shortness of breath, palpitation prior to his fall. Denies any cough, abdominal pain. Denies any changes in bladder or bowel habits. ED work up indicated left wrist and left hip fracture. CBC/BMP: 11/17/16 0603 11/14/16 1402 Significant Findings Laboratory Tests Test 11/14/16 14:02 11/14/16 17:00 11/16/16 07:34 11/17/16 06:03 Neutrophils (%) (Auto) 76.4 % (16.0-70.0) Monocytes (%) (Auto) 8.1 % (0.0-8.0) Random Glucose 107 MG/DL (74-106) Estimat Glomerular Filtration Rate 67 ML/MIN (>89) Urine Turbidity HAZY (CLEAR) Urine Ketones 10 mg/dL (NEG) Urine Mucus FEW /lpf (OCC) White Blood Count 16.7 TH/MM3 (4.0-11.0) 16.3 TH/MM3 (4.0-11.0) Red Blood Count 4.30 MIL/MM3 (4.50-5.90) 4.29 MIL/MM3 (4.50-5.90) Imaging Last Impressions Hip and Pelvis X-Ray 11/15/16 1149 Signed Impressions: Service Date/Time: Tuesday, November 15, 2016 15:12 - CONCLUSION: Anatomic alignment. Frankie Bravo MD Wrist X-Ray 11/15/16 0000 Signed Impressions: Service Date/Time: Tuesday, November 15, 2016 12:46 - CONCLUSION: Anatomic alignment Frankie Bravo MD FACR Chest X-Ray 11/14/16 1340 Signed Impressions: Service Date/Time: Monday, November 14, 2016 15:14 - CONCLUSION: No acute disease. Sai Olsen MD PE at Discharge GENERAL: Sleeping, NAD. SKIN: Warm and dry. HEAD: Normocephalic. EYES: No scleral icterus. No injection or drainage. NECK: Supple, trachea midline. No JVD or lymphadenopathy. CARDIOVASCULAR: Regular rate and rhythm without murmurs, gallops, or rubs. RESPIRATORY: Breath sounds equal bilaterally. No accessory muscle use. GASTROINTESTINAL: Abdomen soft, non-tender, nondistended. MUSCULOSKELETAL: No cyanosis, or edema. s/p left wrist, left hip surgery. BACK: Nontender without obvious deformity. No CVA tenderness. Pt update on day of discharge Mr. Thompson is doing well. No acute concerns. Denies any chest pain, SOB, fever , chills. Hospital Course Mr. Thompson is a pleasant 86-year-old male with a history of hypertension, hyperlipidemia who presented to the emergency department after a fall. Radiological studies indicated he sustained left wrist fracture as well as left hip fracture. Orthopedic surgery was consulted and patient is scheduled for surgical intervention on 11/15/2016. - Left hip fracture - Left wrist fracture - Orthopedic surgery consulted. Status post Left hip hemiarthroplasty, Left distal radius fracture with ORIF on 11/15/2016. - Acetaminophen, [place], Dilaudid when necessary for pain. - Post surgical DVT prophylaxis with Lovenox. - Hypertension - Hyperlipidemia - Continue metoprolol succinate 50 mg daily, amlodipine 5 mg daily, pravastatin 20 mg by mouth daily. - Benign prostatic hyperplasia - Continue dutasteride 0.5 mg by mouth daily. - Tobacco use - Alcohol use - CIWA-r protocol. - Patient does not want nicotine patches. He also does not want to quit smoking. - He was advised by me as well as the orthopedic surgeon to quit smoking as it will help with wound healing. Patient is now being discharged to [facility]. Pt Condition on Discharge: Good Discharge Disposition: Rehab Inpatient Discharge Time: <= 30 minutes Discharge Instructions DIET: Follow Instructions for: Heart Healthy Diet Activities you can perform: Regular-No Restrictions Follow up Referrals: Orthopedics with Michoacano Zapata MD New Medications: Aspirin (Aspirin) 325 Mg Tab 325 MG PO DAILY for Prevent Blood Clot, #30 TAB 0 Refills Start Aspirin after Lovenox is completed. Commode 3-in-1 (Commode 3-in-1) 1 Mis Mis EA .ROUTE DIRECTED, #1 0 Refills Enoxaparin Inj (Lovenox Inj) 40 Mg/0.4 Ml Syr 40 MG SQ DAILY for Blood Clot Prevention for 10 Days, #10 SYRINGE 0 Refills Start Aspirin after Lovenox is completed. Hydrocodone-Acetaminophen ([place]) 5-325 mg Tab 1-2 TAB PO Q4H PRN for PAIN, #40 TAB 0 Refills Walker with Front Wheels (Walker with Front Wheels) 1 Mis Mis EA .ROUTE DIRECTED, #1 0 Refills Platform walker Continued Medications: Amlodipine (Norvasc) 5 Mg Tab 5 MG PO DAILY for Blood Pressure Management, #30 TAB 0 Refills Dutasteride (Avodart) 0.5 Mg Cap 0.5 MG PO DAILY for Manage Prostate Problems, #30 CAP 0 Refills Metoprolol Succinate ER 24 HR (Toprol XL) 50 Mg Tab 50 MG PO DAILY, #30 TAB 0 Refills Pravastatin (Pravachol) 20 Mg Tab 20 MG PO HS for Cholesterol Management, #60 TAB 0 Refills Discontinued Medications: Aspirin (Aspirin) 81 Mg Chew 81 MG CHEW DAILY, TAB 0 Refills Bright Kyle DO Nov 17, 2016 10:42 am
[2016-11-17 12:00] VITALS: BP 117/74; PULSE 84; RESP 18; TEMP 97.7; O2SAT 97
--- NOTE | 2016-11-17 13:40 | PD.ORT.PN ---
Subjective Subjective Remarks Patient is resting comfortably in bed in NAD. Patient reports minimal pain to the left wrist and hip. Patient states the plan is for him to go to [facility] today Objective Vitals Vital Signs Date Time Temp Pulse Resp B/P (MAP) Pulse Ox O2 Delivery O2 Flow Rate FiO2 11/17/16 12:00 97.7 84 18 117/74 (88) 97 11/17/16 08:00 96.0 76 18 150/79 (102) 96 11/17/16 00:59 97.9 82 18 141/70 (93) 98 11/16/16 22:18 Nasal Cannula 2.00 11/16/16 19:00 98.4 83 18 137/70 (92) 97 11/16/16 15:44 97.8 83 19 141/73 (95) 94 I/O 11/16/16 11/16/16 11/16/16 11/17/16 11/17/16 11/17/16 07:00 15:00 23:00 07:00 15:00 23:00 Intake Total 1896 ml 950 ml 360 ml 240 ml Output Total 350 ml 900 ml 550 ml 450 ml Balance 1546 ml 50 ml -190 ml -210 ml Intake Oral 240 ml 950 ml 360 ml 240 ml IV Total 1656 ml Output Urine Total 350 ml 900 ml 550 ml 450 ml # Bowel Movements 0 0 0 0 Result Diagram: 11/17/16 0603 11/14/16 1402 Procedures Left hip hemiarthroplasty Left distal radius fracture with ORIF Objective Remarks LUE Splint C/D/I to left wrist. Patient moves fingers and has good sensation x 5. BCR X 5. LLE Dressing changed with no drainage. Incision is well approximated. No erythema or s/s of infection. EHL/TA/G intact. 2+ pedal pulse. Calf is soft and nontender. + SILT. Assessment & Plan Ortho Post Op Day #: 2 Problem List: Assessment and Plan POD #2: Left hip hemiarthroplasty Left distal radius fracture with ORIF 1. WBAT LLE, NWB LUE 2. Platform walker for ambulation 3. Posterior hip precautions for the left hip 4. Lovenox followed by ASA for DVT prophylaxis 5. Maintain splint to LUE 6. F/U in the office in [address] Zapata or JOSE Brennan 7. Plan [facility]. Trav Rojas Nov 17, 2016 13:40
[2016-11-17] MEDS: SODIUM CHLOR 0.9% 1000 ML INJ 1,000 ML IV SCH (13:49)
[2016-11-17 16:00] VITALS: BP 125/75; PULSE 94; RESP 18; TEMP 98.5; O2SAT 94
[2016-11-17] MEDS: ENOXAPARIN SODIUM 40 MG/0.4 ML SYRINGE SQ SCH (16:22)
[2016-11-28] MEDS ORDERED: WHEEMIS3 (15:42)
[2016-11-28] MEDS ORDERED: COMMODE 3-IN-11 MIS (15:42)
[2016-11-28] MEDS ORDERED: GETGO ROLLING W1 MI1 (15:42)
[2016-11-30] MEDS ORDERED: PRAV20TA PO (09:57)
[2016-11-30] MEDS ORDERED: ASPI325T PO (09:57)
[2016-11-30] MEDS ORDERED: SENN1TAB PO (09:57)
[2016-11-30] MEDS ORDERED: HYDR-3516 PO (09:57)
[2016-11-30] MEDS ORDERED: AVOD0.5C PO (09:57)
[2016-11-30] MEDS ORDERED: THERTAB15 PO (09:57)
[2016-11-30] MEDS ORDERED: METO25TA6 PO (09:57)
[2016-11-30] MEDS ORDERED: PANT40TA3 PO (09:57)
[2016-11-30] MEDS ORDERED: TAMS5CAP PO (09:57)
== END 2016-11-17 18:46 | DRG 470 ==
LOC: NEPC 12:54 → NEDA 16:53 → N06A 19:46
PROVIDERS: ADMIT Hospitalist; ATTEND Hospitalist
PROC: 0SRS0JA Replacement of Left Hip Joint, Femoral Surface with Synthetic Substitute, Uncemented, Open Approach (ICD-10-PCS; principal; 2016-11-15 10:13)
PROC: 0PSJ04Z Reposition Left Radius with Internal Fixation Device, Open Approach (ICD-10-PCS; 2016-11-15 10:13)
DX: S72.012A Unspecified intracapsular fracture of left femur, initial encounter for closed fracture (principal); I10 Essential (primary) hypertension; S52.572A Other intraarticular fracture of lower end of left radius, initial encounter for closed fracture; S52.612A Displaced fracture of left ulna styloid process, initial encounter for closed fracture; E78.5 Hyperlipidemia, unspecified; F17.210 Nicotine dependence, cigarettes, uncomplicated; N40.0 Benign prostatic hyperplasia without lower urinary tract symptoms; S61.519A Laceration without foreign body of unspecified wrist, initial encounter; Z79.899 Other long term (current) drug therapy; W01.0XXA Fall on same level from slipping, tripping and stumbling without subsequent striking against object, initial encounter; Y92.094 Garage of other non-institutional residence as the place of occurrence of the external cause
CPT/HCPCS: 71010; 73100; 73110; 73502; 76000; 80053; 81001; 85025; 85027; 85610; 85730; 86850; 86900; 86901; 93005; 94150; 94664; 96374; C1713; C1776; C9290; J0131; J0690; J1580; J1650; J2060; J2250; J2270; J2405; J2710; J3010; J3370; J7030; J7120; J7613

== ENCOUNTER 2018-04-12 10:50 | Inpatient (IN) ==
--- NOTE | 2018-04-12 11:31 | ED ---
HPI General Chief complaint: Extremity Problem,Nontraumatic Stated complaint: doc sent/foot pain Time Seen by Provider: 04/12/18 11:07 Source: patient Mode of arrival: ambulatory Limitations: no limitations History of Present Illness HPI Narrative: 87-year-old male complains of left foot discomfort. Patient states that he started having discomfort to the bottom of left foot for the past 2 months. 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 Patient states that he was advised to see a vascular surgeon for vascular problem of the left foot. Patient is awaiting appointment with Dr. Wills. Patient started noticed discoloration and blister of distal aspect left foot for the past few days. Patient was advised by his personal physician to go to ED for evaluation. Patient denies any fever chills. Patient denies any chest pain or shortness of breath. Patient denies abdominal pain. Patient denies any pain to the left foot. Patient has history of bladder cancer, hypertension, hyperlipidemia. Patient is a smoker. Patient drinks alcohol occasionally. MD Complaint: Reports extremity pain Onset (ago): month(s) Pain Consistency: intermittent Location: Reports left Severity scale (1-10): 3 Quality: Reports aching Radiation: Reports none Relieving factors: nothing Exacerbating factors: nothing Associated symptoms: Reports denies other symptoms Related Data Home Medications Medication Instructions Recorded Confirmed dutasteride 0.5 mg PO DAILY 04/12/18 04/12/18 metoprolol tartrate 50 mg PO DAILY 04/12/18 04/12/18 pravastatin 20 mg PO DAILY 04/12/18 04/12/18 tamsulosin 0.4 mg PO DAILY 04/12/18 04/12/18 Allergies Allergy/AdvReac Type Severity Reaction Status Date / Time No Known Allergies Allergy Uncoded 02/15/16 06:07 Review of Systems ROS: all other systems reviewed are negative [facility] Medical History Medical History Bladder cancer (Acute) Hypertension (Acute) Surgical History Surgical History History of hip surgery (Acute) S/P wrist surgery (Acute) Social History Social History Substance History: No History of Abuse Second Hand Smoke Exposure: No Smoking Status: Current every day smoker Tobacco Type: Cigarettes How Often Do You Have a Drink Containing Alcohol: 2 to 4 times a month Recent Travel in [facility] within the Last 8 Weeks: No Recent Out of Country Travel within the Last 8 Weeks: No Immunization History Tetanus Immunization: <5 Years Exam Narrative Exam Narrative: GENERAL: Well-nourished, well-developed patient. SKIN: Focused skin assessment warm/dry. HEAD: Normocephalic. EYES: No scleral icterus. No injection or drainage. NECK: Supple, trachea midline. No JVD or lymphadenopathy. CARDIOVASCULAR: Regular rate and rhythm without murmurs, gallops, or rubs. RESPIRATORY: Breath sounds equal bilaterally. No accessory muscle use. GASTROINTESTINAL: Abdomen soft, non-tender, nondistended. MUSCULOSKELETAL: No cyanosis, or edema. BACK: Nontender without obvious deformity. No CVA tenderness. Examination of the left foot reveals purplish reddish discoloration distal aspect left foot and blisters to the distal aspect left foot and toes. DP pulses present. Posterior vertebral pulses present. The foot feels cooler on the left than on the right. Course Initial Documented Vital Signs Temperature 98.1 F 04/12/18 10:56 Pulse Rate 77 04/12/18 10:56 Respiratory Rate 14 04/12/18 10:56 Blood Pressure 143/69 H 04/12/18 10:56 Pulse Oximetry 93 L 04/12/18 10:56 Last Documented Vital Signs Temperature 98.1 F 04/12/18 10:56 Pulse Rate 69 04/12/18 12:53 Respiratory Rate 18 04/12/18 12:53 Blood Pressure 140/68 04/12/18 12:53 Pulse Oximetry 99 04/12/18 12:53 Medical Decision Making MDM Narrative Medical decision making narrative: 87-year-old male with redness purpleish and blisters to the distal aspect left foot. Vancomycin 1 g IV given. Zosyn 3.375 g IV given. Medical Screen Exam Complete: Yes Emergency Medical Condition: Yes Differential Diagnosis Differential Diagnosis: Differential diagnosis including cellulitis, osteomyelitis, gangrene Lab Data Lab results reviewed: Yes I reviewed the patient's lab results. Result diagrams: 04/12/18 11:30 04/12/18 11:30 Lab Results 04/12/18 04/12/18 04/12/18 Range/Units 11:30 11:30 11:30 WBC 13.9 H (4.0-11.0) th/mm3 RBC 4.37 L (4.50-5.90) mil/mm3 Hgb 13.6 (13.0-17.0) gm/dL Hct 39.5 (39.0-51.0) % MCV 90.3 (80.0-100.0) fL MCH 31.2 (27.0-34.0) pg MCHC 34.6 (32.0-36.0) % RDW 13.4 (11.6-17.2) % Plt Count 447 (150-450) th/mm3 MPV 8.1 (7.0-11.0) fL Neut % (Auto) 76.1 H (16.0-70.0) % Lymph % (Auto) 14.1 (9.0-44.0) % Howard % (Auto) 7.5 (0.0-8.0) % Eos % (Auto) 1.7 (0.0-4.0) % Baso % (Auto) 0.6 (0.0-2.0) % Neut # (Auto) 10.5 H (1.8-7.7) th/mm3 Lymph # (Auto) 2.0 (1.0-4.8) th/mm3 Howard # (Auto) 1.0 H (0.0-0.9) th/mm3 Eos # (Auto) 0.2 (0.0-0.4) th/mm3 Baso # (Auto) 0.1 (0.0-0.2) th/mm3 WBC Differential . Differential Comment Auto diff final PT 10.8 (9.8-11.6) sec INR 1.1 Ratio APTT 24.0 (23.4-31.7) sec Sodium 137 (136-145) meq/L Potassium 4.7 (3.5-5.1) meq/L Chloride 107 (98-107) meq/L Carbon Dioxide 21.5 (21.0-32.0) meq/L Anion Gap 9 (5-15) meq/L BUN 23 H (7-18) mg/dL Creatinine 1.31 H (0.60-1.30) mg/dL Estimated GFR 52 L (>89) mL/min Random Glucose 102 (74-106) mg/dL Calcium 8.7 (8.5-10.1) mg/dL Total Bilirubin 0.8 (0.2-1.0) mg/dL AST 29 (15-37) U/L ALT 19 (12-78) U/L Alkaline Phosphatase 89 (45-117) U/L Total Protein 8.2 (6.4-8.2) g/dL Albumin 3.5 (3.4-5.0) g/dL Imaging Data Attestation: I personally reviewed and interpreted this imaging study as follows : Radiologist's impression: Foot X-Ray 04/12/18 11:23 CONCLUSION: Osteopenia. No acute abnormality. Discharge Plan Discharge Disposition Patient Disposition: ED Admit(ED Internal Use Only) Discharge Order Discharge Orders: ED Use Only Admit Order (Routine); Ordered 04/12/18 Ordered By: Matthew Whalen Discharge Details Diagnosis: Cellulitis of foot, left Physicians Team ED Provider: Matthew Whalen Primary Care Provider: Flaco Horowitz Rxs /Orders / Referrals /Forms Prescriptions: No Action metoprolol tartrate 50 mg Tablet 50 mg PO DAILY RF: 0 pravastatin 20 mg Tablet 20 mg PO DAILY RF: 0 dutasteride 0.5 mg Capsule 0.5 mg PO DAILY RF: 0 tamsulosin 0.4 mg Capsule 0.4 mg PO DAILY RF: 0 Discharge Interventions Interventions: Vital Signs Last Done: 04/12/18 12:53 Status ED Status: Admitted Patient
[2018-04-12 11:57] LABS: Baso # (Auto) 0.1 th/mm3 (0.0-0.2); Baso % (Auto) 0.6 % (0.0-2.0); Eos # (Auto) 0.2 th/mm3 (0.0-0.4); Eos % (Auto) 1.7 % (0.0-4.0); Hematocrit 39.5 % (39.0-51.0); Hemoglobin 13.6 gm/dL (13.0-17.0); Lymph % (Auto) 14.1 % (9.0-44.0); Mean Corpuscular HGB Conc 34.6 % (32.0-36.0); Mean Corpuscular Hemoglobin 31.2 pg (27.0-34.0); Mean Corpuscular Volume 90.3 fL (80.0-100.0); Mean Platelet Volume 8.1 fL (7.0-11.0); Mono % (Auto) 7.5 % (0.0-8.0); Neut # (Auto) 10.5 th/mm3 (1.8-7.7); Neut % (Auto) 76.1 % (16.0-70.0); Platelet Count 447 th/mm3 (150-450); Red Blood Count 4.37 mil/mm3 (4.50-5.90); Red Cell Distribution Width 13.4 % (11.6-17.2); White Blood Count 13.9 th/mm3 (4.0-11.0)
--- NOTE | 2018-04-12 12:05 | XR ---
EXAM DATE: 04/12/2018 12:00 PM EST AGE/SEX: 87 years / Male INDICATIONS: Bone Infarction. Patient complains of left foot discoloration, bruising appearance, nelda t has become worse. CLINICAL DATA: This is the patient's initial encounter. Patient reports that signs and symptoms have been present for 1 month and indicates a pain score of 0/10. MEDICAL/SURGICAL HISTORY: Hypertension. . ORIF left wrist. Left hip replacement. COMPARISON: No prior exams available for comparison. FINDINGS: Diffuse osteopenia. No fracture or dislocation. Joint spaces are preserved. Soft tissues are unremark able. CONCLUSION: Osteopenia. No acute abnormality. Electronically signed by: Davonte Zuñiga MD Board Certified Radiologist 04/12/2018 12:04 PM EST
[2018-04-12 12:07] LABS: INR 1.1 Ratio; Prothrombin Time 10.8 sec (9.8-11.6)
[2018-04-12 12:21] LABS: Alkaline Phosphatase 89 U/L (45-117); Total Protein 8.2 g/dL (6.4-8.2)
[2018-04-12 12:27] LABS: Alanine Aminotransferase 19 U/L (12-78); Albumin 3.5 g/dL (3.4-5.0); Anion Gap 9 meq/L (5-15); Aspartate Aminotransferase 29 U/L (15-37); Blood Urea Nitrogen 23 mg/dL (7-18); Calcium 8.7 mg/dL (8.5-10.1); Carbon Dioxide 21.5 meq/L (21.0-32.0); Chloride 107 meq/L (98-107); Glomerular Filtration Rate 52 mL/min (>89); Glucose,Random 102 mg/dL (74-106); Sodium 137 meq/L (136-145)
[2018-04-12 12:28] LABS: Potassium 4.7 meq/L (3.5-5.1)
[2018-04-12] MEDS ORDERED: Piperacil/Tazo 3.375 GM Premix 3.375 GM/50 ML PIGGYBACK IV.SIG ONE (13:12)
[2018-04-12] MEDS ORDERED: Vancomycin Inj 1,000 MG in Sodium Chlor 0.9% Inj 250 ML IV.SIG ONE (13:12)
[2018-04-12] MEDS ORDERED: Bisacodyl 10 MG Supp RECTAL PRN (13:24)
[2018-04-12] MEDS ORDERED: Acetaminophen 325 MG Tablet PO PRN (13:24)
[2018-04-12] MEDS ORDERED: Vancomycin Consult Pharmacy OTHER PRN (14:36)
[2018-04-12] MEDS: Enoxaparin Inj 40 MG/0.4 ML Syringe SQ SCH (14:37)
--- NOTE | 2018-04-12 15:13 | ECHRPT ---
EXAM DATE: 04/12/2018 3:08 PM EST AGE/SEX: 87 years / Male INDICATIONS: left foot infection CLINICAL DATA: This is the patient's initial encounter. Patient reports that signs and symptoms have been present for 2 months and indicates a pain score of 3/10. MEDICAL/SURGICAL HISTORY: . bladder cancer, hypertension . hip surgery, wrist surgery COMPARISON: No prior exams available for comparison. TECHNIQUE: Four-cuff ankle and brachial pressures were obtained. Pulse cuff waveform tracings of the ankles were recorded, and ankle-brachial indices were calculated. PRESSURES (mmHg): Brachial (arm) : RIGHT: iv site, LEFT: 154 Ankle : RIGHT: 154, LEFT: 83 RANDALL : RIGHT: 1.00, LEFT: 0.54 TBI : RIGHT: 0.45, LEFT: 0.00 FINDINGS: Pulsed-Cuff Waveform: There are good upstroke and a dicrotic downstroke of the tracings. Other: None. CONCLUSION: Severely compromised runoff on the left. Satisfactory ankle index however moderate compromise of peda l circulation on the right Electronically signed by: Sang Clifford MD Board Certified Radiologist 04/12/2018 3:12 PM EST
--- NOTE | 2018-04-12 15:49 | P.CONVS ---
History of Present Illness Service: Vascular Surgery Consult date: 04/12/18 Primary Care Provider: Flaco Horowitz DO Chief Complaint: left foot pain History of Present Illness: 87-year-old male who presents with a one-month history of left foot pain that is progressively getting worse. He is scheduled to see us at [facility]. Today, he noted discoloration of the right foot. He reports rest pain and claudication. He is able to move the foot without any difficulties. He does not have any numbness or tingling. He denies any fever chills. He denies any chest pain or shortness of breath. Review of Systems All other systems reviewed negative except as stated in HPI PMFSH - History History Provided By: Patient - Medical History Medical History: Medical History (Last Reviewed 04/12/18 @ 11:29 by Matthew Whalen MD) Bladder cancer Hypertension - Surgical History Surgical History: Surgical History (Last Reviewed 04/12/18 @ 11:29 by Matthew Whalen MD) History of hip surgery S/P wrist surgery - Tobacco History Second Hand Smoke Exposure: No Tobacco Use In Past 30 Days: Yes Smoking Status: Current every day smoker Tobacco Type: Cigarettes - Alcohol History How Often Do You Have a Drink Containing Alcohol: 2 to 4 times a month - Substance Use History Substance History: No History of Abuse - Travel History Recent Travel in the [place] Within the Last 8 Weeks: No Recent Travel Out of the Country Within the Last 8 Weeks: No - Immunization History Tetanus Immunization: <5 Years Medications and Allergies Active Medications: Active Medications Acetaminophen (Tylenol) 650 mg PO Q4H PRN PRN Reason: Headache, fever, pain 1-4 Al Hydroxide/Mg Hydroxide (Milk Of Magnesia Liq) 30 ml PO Q12H PRN PRN Reason: Mild Constipation Bisacodyl (Dulcolax Supp) 10 mg RECTAL DAILY PRN PRN Reason: SEVERE CONSITIPATION Enoxaparin Sodium (Lovenox Inj) 40 mg SQ Q24H MARYBETH Last Admin: 04/12/18 14:37 Dose: Not Given Cefazolin Sodium/Dextrose (Ancef 2 Gm Premix Inj) 2 gm in 50 mls @ 100 mls/hr IV.SIG Q8H MARYBETH Lactulose (Lactulose Liq) 30 ml PO DAILY PRN PRN Reason: SEVERE CONSITIPATION Ondansetron HCl (Zofran Inj) 4 mg IV.PUSH Q6H PRN PRN Reason: NAUSEA OR VOMITING Pharmacy Profile Note (Vancomycin Consult Pharmacy) 1 each OTHER UNSCH PRN PRN Reason: Pharmacy to dose Sennosides (Senokot) 17.2 mg PO Q12H PRN PRN Reason: Moderate Constipation Sodium Chloride (Ns Flush) 2 ml IV.FLUSH BID MARYBETH Sodium Chloride (Ns Flush) 2 ml IV.FLUSH PRN PRN PRN Reason: FLUSH AFTER USING IV ACCESS Allergies Allergy/AdvReac Type Severity Reaction Status Date / Time No Known Allergies Allergy Uncoded 02/15/16 06:07 Home Medications Medication Instructions Recorded Confirmed Type dutasteride 0.5 mg PO DAILY 04/12/18 04/12/18 History metoprolol tartrate 50 mg PO DAILY 04/12/18 04/12/18 History pravastatin 20 mg PO DAILY 04/12/18 04/12/18 History tamsulosin 0.4 mg PO DAILY 04/12/18 04/12/18 History Physical Exam Vital Signs / I&O: Vital Signs 04/12/18 10:56 04/12/18 11:01 04/12/18 12:51 Temperature 98.1 F Pulse Rate 77 89 69 Respiratory Rate 14 18 Blood Pressure 143/69 H 158/68 H Pulse Oximetry 93 L 99 99 04/12/18 12:53 04/12/18 14:06 Temperature Pulse Rate 69 72 Respiratory Rate 18 18 Blood Pressure 140/68 148/78 H Pulse Oximetry 99 99 Intake & Output 04/11/18 04/12/18 04/12/18 18:59 06:59 18:59 Intake Total 50 / 50 Balance 50 / 50 Weight 69.4 kg Intake: IV 50 / 50 Zosyn 3.375 GM Premix 3.375 gm 50 / 50 In 50 ml @ 100 mls/hr IV.SIG ONCE ONE Rx#:[id number] Neuro: Alert, awake, oriented no neuro deficit HEENT: supple Neck: Supple, no JVD Heart: S1 S2 Lungs: CTAB Abdomen: Soft, NT, ND , No R no PS Vascular: Palpable femoral pulses bilaterally. Biphasic bilateral DP, PT signals. 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 Motor/sensory intact bilateral Laboratory Results - last 24 hr 0204/12/18 04/12/18 11:30 11:30 11:30 WBC 13.9 H RBC 4.37 L Hgb 13.6 Hct 39.5 MCV 90.3 MCH 31.2 MCHC 34.6 RDW 13.4 Plt Count 447 MPV 8.1 Neut % (Auto) 76.1 H Lymph % (Auto) 14.1 [place] % (Auto) 7.5 Eos % (Auto) 1.7 Baso % (Auto) 0.6 Neut # (Auto) 10.5 H Lymph # (Auto) 2.0 [place] # (Auto) 1.0 H Eos # (Auto) 0.2 Baso # (Auto) 0.1 WBC Differential . Differential Comment Auto diff final PT 10.8 INR 1.1 APTT 24.0 Sodium 137 Potassium 4.7 Chloride 107 Carbon Dioxide 21.5 Anion Gap 9 BUN 23 H Creatinine 1.31 H Estimated GFR 52 L Random Glucose 102 Calcium 8.7 Total Bilirubin 0.8 AST 29 ALT 19 Alkaline Phosphatase 89 Total Protein 8.2 Albumin 3.5 Impressions Extremity Arterial Study 04/12/18 00:00 CONCLUSION: Severely compromised runoff on the left. Satisfactory ankle index however moderate compromise of pedal circulation on the right Foot X-Ray 04/12/18 11:23 CONCLUSION: Osteopenia. No acute abnormality. Assessment and Plan - Plan Critical limb ischemia with tissue loss No evidence of acute limb ischemia Left 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 1. I will schedule the patient for a left lower extremity angiogram on Sunday. 2. Podiatry consult for an evaluation. 3. Patient will need risk factor modification including antiplatelet therapy and statin therapy. Thank you for allowing us to participate in this patient care. If you have any questions do not hesitate to call my cell phone. Sai Farooq MD [facility] [phone]
--- NOTE | 2018-04-12 17:26 | P.HPIM ---
History of Present Illness Service: Hospitalist Primary Care Physician: Flaco Horowitz DO Chief Complaint: Left foot pain, color change. History of Present Illness: Mr. Thompson is a pleasant 87-year-old male with a history of hypertension, hyperlipidemia who presents to the emergency department on 04/12/2018 due to left leg discomfort as well as color change. Patient noticed his symptoms about a month ago. 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 Patient was supposed to go to [facility] vascular surgeon Dr. Woodard. However, due to worsening left foot pain and discoloration he went to his primary care physician who recommended him to come to the emergency department. Patient denies any fever or chills. Denies any chest pain, shortness of breath. No changes in bowel or bladder habits. Past medical history: BPH, hypertension, hyperlipidemia, bladder cancer Past surgical history: Cataract surgery, appendectomy, tonsillectomy, bladder cancer surgery Family history: MotherAlzheimer's disease, fatheraortic aneurysm. Social history: Patient smokes a pack a day. Drinks socially. Inpatient Certification Inpatient Certification: I certify that the inpatient services were ordered in accordance with Medicare regulations governing the order. This includes certification that hospital inpatient services are reasonable and necessary and in the case of services not specified as inpatient-only under 42 CFR 419.22(n), that they are appropriately provided as inpatient services in accordance to with the 2-midnight benchmark under 43 CFR 412.3(e) Estimated Total Length of Stay (Days): 3 Plans for Post Hospital Care: Not yet determined Review of Systems Review of Systems: all other systems reviewed are negative [facility] Medical History Medical History Bladder cancer (Acute) Hypertension (Acute) Surgical History Surgical History History of hip surgery (Acute) S/P wrist surgery (Acute) Social History Social History Substance History: No History of Abuse Second Hand Smoke Exposure: No Smoking Status: Never smoker Tobacco Type: Cigarettes How Often Do You Have a Drink Containing Alcohol: Never Recent Travel in [facility] within the Last 8 Weeks: No Recent Out of Country Travel within the Last 8 Weeks: No Immunization History Tetanus Immunization: <5 Years Medications and Allergies Allergies Allergy/AdvReac Type Severity Reaction Status Date / Time No Known Allergies Allergy Uncoded 02/15/16 06:07 Home Medications Medication Instructions Recorded Confirmed Type dutasteride 0.5 mg PO DAILY 04/12/18 04/12/18 History metoprolol tartrate 50 mg PO DAILY 04/12/18 04/12/18 History pravastatin 20 mg PO DAILY 04/12/18 04/12/18 History tamsulosin 0.4 mg PO DAILY 04/12/18 04/12/18 History Active Medications: Active Medications Acetaminophen (Tylenol) 650 mg PO Q4H PRN PRN Reason: Headache, fever, pain 1-4 Al Hydroxide/Mg Hydroxide (Milk Of Magnesia Liq) 30 ml PO Q12H PRN PRN Reason: Mild Constipation Bisacodyl (Dulcolax Supp) 10 mg RECTAL DAILY PRN PRN Reason: SEVERE CONSITIPATION Enoxaparin Sodium (Lovenox Inj) 40 mg SQ Q24H MARYBETH Last Admin: 04/12/18 14:37 Dose: Not Given Cefazolin Sodium/Dextrose (Ancef 2 Gm Premix Inj) 2 gm in 50 mls @ 100 mls/hr IV.SIG Q8H MARYBETH Lactulose (Lactulose Liq) 30 ml PO DAILY PRN PRN Reason: SEVERE CONSITIPATION Ondansetron HCl (Zofran Inj) 4 mg IV.PUSH Q6H PRN PRN Reason: NAUSEA OR VOMITING Pharmacy Profile Note (Vancomycin Consult Pharmacy) 1 each OTHER UNSCH PRN PRN Reason: Pharmacy to dose Sennosides (Senokot) 17.2 mg PO Q12H PRN PRN Reason: Moderate Constipation Sodium Chloride (Ns Flush) 2 ml IV.FLUSH BID MARYBETH Sodium Chloride (Ns Flush) 2 ml IV.FLUSH PRN PRN PRN Reason: FLUSH AFTER USING IV ACCESS Physical Exam Vital signs: Vital Signs 04/12/18 10:56 04/12/18 11:01 04/12/18 12:51 Temperature 98.1 F Pulse Rate 77 89 69 Respiratory Rate 14 18 Blood Pressure 143/69 H 158/68 H Pulse Oximetry 93 L 99 99 04/12/18 12:53 04/12/18 14:06 04/12/18 16:20 Temperature 97.5 F L Pulse Rate 69 72 61 Respiratory Rate 18 18 16 Blood Pressure 140/68 148/78 H 151/70 H Pulse Oximetry 99 99 96 Intake & Output 04/11/18 04/12/18 04/12/18 18:59 06:59 18:59 Intake Total 300 / 300 Balance 300 / 300 Weight 69.4 kg Intake: IV 300 / 300 Zosyn 3.375 GM Premix 3.375 gm 50 / 50 In 50 ml @ 100 mls/hr IV.SIG ONCE ONE Rx#:[id number] Vancomycin Inj 1,000 MG In NS 250 / 250 Inj 250 ML @ 250 mls/hr IV.SIG ONCE ONE Rx#:[id number] Other: Weight On Admission 69.4 kg Narrative: GENERAL: This is a well-nourished, well-developed patient, in no apparent distress. SKIN: No rashes, ecchymoses or lesions. Warm and dry. HEAD: Atraumatic. Normocephalic. No temporal or scalp tenderness. EYES: Pupils equal round and reactive. No injection or drainage. ENT: Nose without bleeding, purulent drainage or septal hematoma. Airway patent. NECK: Trachea midline. No lymphadenopathy. Supple, nontender, no meningeal signs. CARDIOVASCULAR: Regular rate and rhythm without murmurs, gallops, or rubs. No JVD. RESPIRATORY: Clear to auscultation. Breath sounds equal bilaterally. No wheezes , rales, or rhonchi. GASTROINTESTINAL: Abdomen soft, non-tender, nondistended. No guarding. MUSCULOSKELETAL: Extremities without clubbing or edema. Left foot with cyanotic changes and surrounding erythema as well. No active drainage noted. NEUROLOGICAL: Awake and alert. Cranial nerves II through XII intact. No focal neurological deficits. Normal speech. Results Labs CBC & Chem 7: 04/12/18 11:30 04/12/18 11:30 Imaging Impressions Extremity Arterial Study 04/12/18 00:00 CONCLUSION: Severely compromised runoff on the left. Satisfactory ankle index however moderate compromise of pedal circulation on the right Foot X-Ray 04/12/18 11:23 CONCLUSION: Osteopenia. No acute abnormality. Caprini VTE Risk Assessment Caprini VTE Risk Assessment: Moderate/High Risk (score >= 2) Caprini Risk Assessment Model: Point Value = 1 Point Value = 2 Point Value = 3 Point Value = 5 Age 41-60 Minor surgery BMI > 25 kg/m2 Swollen legs Varicose veins or History of unexplained or recurrent spontaneous Oral contraceptives or hormone replacement Sepsis (< 1 month) Serious lung disease, including pneumonia (< 1 month) Abnormal pulmonary function Acute myocardial infarction Congestive heart failure (< 1 month) History of inflammatory bowel disease Medical patient at bed rest Age 61-74 Arthroscopic surgery Major open surgery (> 45 min) Laparoscopic surgery (> 45 min) Malignancy Confined to bed (> 72 hours) Immobilizing plaster cast Central venous access Age >= 75 History of VTE Family history of VTE Factor V Leiden Prothrombin [id number] Lupus anticoagulant Anticardiolipin antibodies Elevated serum homocysteine Heparin-induced thrombocytopenia Other congenital or acquired thrombophilia Stroke (< 1 month) Elective arthroplasty Hip, pelvis, or leg fracture Acute spinal cord injury (< 1 month) Prophylaxis Regimen: Total Risk Factor Score Risk Level Prophylaxis Regimen 0-1 Low Early ambulation 2 Moderate Order ONE of the following: *Sequential Compression Device (SCD) *Heparin 5000 units SQ BID 3-4 Higher Order ONE of the following medications: *Heparin 5000 units SQ TID *Enoxaparin/Lovenox 40 mg SQ daily (WT < 150 kg, CrCl > 30 mL/min) *Enoxaparin/Lovenox 30 mg SQ daily (WT < 150 kg, CrCl > 10-29 mL/min) *Enoxaparin/Lovenox 30 mg SQ BID (WT < 150 kg, CrCl > 30 mL/min) AND/OR *Sequential Compression Device (SCD) 5 or more Highest Order ONE of the following medications: *Heparin 5000 units SQ TID (Preferred with Epidurals) *Enoxaparin/Lovenox 40 mg SQ daily (WT < 150 kg, CrCl > 30 mL/min) *Enoxaparin/Lovenox 30 mg SQ daily (WT < 150 kg, CrCl > 10-29 mL/min) *Enoxaparin/Lovenox 30 mg SQ BID (WT < 150 kg, CrCl > 30 mL/min) AND *Sequential Compression Device (SCD) Assessment and Plan Plan Mr. Thompson is a pleasant 87-year-old male with a history of hypertension, hyperlipidemia who presents to the emergency department on 04/12/2018 due to left foot discomfort as well as discoloration that started about a month ago. Patient denies any fever or chills. However due to worsening symptoms he was advised to come to the emergency department. Probable peripheral vascular disease Critical limb ischemia with tissue loss We will obtain RANDALL and vascular surgery consult. Angiography likely on 2018. We will start patient on Lipitor 40 mg nightly. Probable superimposed cellulitis of the left foot We will start patient on cefazolin 2 g every 8 hours and continue vancomycin. We will obtain sed rate as well as procalcitonin ID consult. History of bladder cancer Hyperlipidemia BPH Hypertension Continue dutasteride 0.5 mg p.o. daily, tamsulosin 0.4 mg p.o. daily. We will start patient on Lipitor 40 mg nightly. Start patient on nifedipine 30 mg daily. Full code. Lovenox. H&P: Quality VTE Deep Vein Thrombosis/Pulmonary Embolism Present on Admission: No
[2018-04-12] MEDS: ceFAZolin 2 GM Premix Inj 2 GM/50 ML PIGGYBACK IV.SIG SCH (21:56)
[2018-04-13] MEDS: ceFAZolin 2 GM Premix Inj 2 GM/50 ML PIGGYBACK IV.SIG SCH ×3 (04:37→20:43)
[2018-04-13 09:40] LABS: Vancomycin,Random 4.4 Comment
--- NOTE | 2018-04-13 10:33 | P.PN ---
Subjective Interval history: Follow-up Critical limb ischemia with tissue loss and superimposed cellulitis April 13, 2018-patient seen and examined, afebrile. Complains of mild left lower extremity discomfort and pain Physical Exam Vital signs: Vital Signs 04/12/18 10:56 04/12/18 11:01 04/12/18 12:51 Temperature 98.1 F Pulse Rate 77 89 69 Respiratory Rate 14 18 Blood Pressure 143/69 H 158/68 H Pulse Oximetry 93 L 99 99 04/12/18 12:53 04/12/18 14:06 04/12/18 16:20 Temperature 97.5 F L Pulse Rate 69 72 61 Respiratory Rate 18 18 16 Blood Pressure 140/68 148/78 H 151/70 H Pulse Oximetry 99 99 96 04/12/18 20:00 04/13/18 00:00 04/13/18 04:00 Temperature 97.8 F 98.0 F 97.8 F Pulse Rate 68 77 75 Respiratory Rate 17 17 16 Blood Pressure 145/72 H 129/62 142/70 H Pulse Oximetry 95 94 L 94 L 04/13/18 07:18 Temperature 97.9 F Pulse Rate 75 Respiratory Rate 16 Blood Pressure 137/71 Pulse Oximetry 94 L Intake & Output 04/12/18 04/13/18 04/13/18 18:59 06:59 18:59 Intake Total 300 / 300 100 / 100 Output Total 725 / 725 Balance 300 / 300 -625 / -625 Weight 69.4 kg Intake: IV 300 / 300 100 / 100 Zosyn 3.375 GM Premix 3.375 gm 50 / 50 In 50 ml @ 100 mls/hr IV.SIG ONCE ONE Rx#:[id number] Vancomycin Inj 1,000 MG In NS 250 / 250 Inj 250 ML @ 250 mls/hr IV.SIG ONCE ONE Rx#:[id number] Ancef 2 GM Premix Inj 2 gm In 100 / 100 50 ml @ 100 mls/hr IV.SIG Q8H [facility] Rx#:[id number] Output: Urine 725 / 725 Other: # Voids 2 Weight On Admission 69.4 kg Narrative: GENERAL: NAD SKIN: Warm and dry. HEAD: Atraumatic. Normocephalic. EYES: Pupils equal and round. No scleral icterus. No injection or drainage. ENT: No nasal bleeding or discharge. Mucous membranes pink and moist. NECK: Trachea midline. No JVD. CARDIOVASCULAR: Regular rate and rhythm. RESPIRATORY: No accessory muscle use. Clear to auscultation. Breath sounds equal bilaterally. GASTROINTESTINAL: Abdomen soft, non-tender, nondistended. Hepatic and splenic margins not palpable. MUSCULOSKELETAL: Extremities without clubbing, cyanosis, or edema. No obvious deformities. Left foot with cyanotic changes and surrounding erythema as well. NEUROLOGICAL: Awake and alert. No obvious cranial nerve deficits. Motor grossly within normal limits. Five out of 5 muscle strength in the arms and legs. Normal speech. PSYCHIATRIC: Appropriate mood and affect; insight and judgment normal. Results - Labs CBC & Chem 7: 04/12/18 11:30 04/13/18 08:20 Laboratory Results - last 24 hr 04/12/18 04/12/18 04/12/18 11:30 11:30 11:30 WBC 13.9 H RBC 4.37 L Hgb 13.6 Hct 39.5 MCV 90.3 MCH 31.2 MCHC 34.6 RDW 13.4 Plt Count 447 MPV 8.1 Neut % (Auto) 76.1 H Lymph % (Auto) 14.1 [place] % (Auto) 7.5 Eos % (Auto) 1.7 Baso % (Auto) 0.6 Neut # (Auto) 10.5 H Lymph # (Auto) 2.0 [place] # (Auto) 1.0 H Eos # (Auto) 0.2 Baso # (Auto) 0.1 WBC Differential . Differential Comment Auto diff final ESR PT 10.8 INR 1.1 APTT 24.0 Sodium 137 Potassium 4.7 Chloride 107 Carbon Dioxide 21.5 Anion Gap 9 BUN 23 H Creatinine 1.31 H Estimated GFR 52 L Random Glucose 102 Calcium 8.7 Total Bilirubin 0.8 AST 29 ALT 19 Alkaline Phosphatase 89 Total Protein 8.2 Albumin 3.5 Procalcitonin Random Vancomycin 04/12/18 04/12/18 04/13/18 11:30 20:11 08:20 WBC RBC Hgb Hct MCV MCH MCHC RDW Plt Count MPV Neut % (Auto) Lymph % (Auto) [place] % (Auto) Eos % (Auto) Baso % (Auto) Neut # (Auto) Lymph # (Auto) [place] # (Auto) Eos # (Auto) Baso # (Auto) WBC Differential Differential Comment ESR 67 H PT INR APTT Sodium Potassium Chloride Carbon Dioxide Anion Gap BUN Creatinine 1.14 Estimated GFR 61 L Random Glucose Calcium Total Bilirubin AST ALT Alkaline Phosphatase Total Protein Albumin Procalcitonin 0.04 Random Vancomycin 4.4 - Imaging Impressions Extremity Arterial Study 04/12/18 00:00 CONCLUSION: Severely compromised runoff on the left. Satisfactory ankle index however moderate compromise of pedal circulation on the right Foot X-Ray 04/12/18 11:23 CONCLUSION: Osteopenia. No acute abnormality. Assessment and Plan - Plan 87-year-old man with Peripheral vascular disease Critical limb ischemia with tissue loss RANDALL with no evidence of acute limb ischemia, therefore no need for heparin drip. Appreciate input from vascular surgery and plan angiography likely on 2018. Continue aspirin, Lipitor 40 mg nightly. Consider Trental Consult podiatry as needed Probable superimposed cellulitis of the left foot Currently on cefazolin 2 g every 8 hours and continue vancomycin. ID consultation pending History of bladder cancer Hyperlipidemia BPH Hypertension Continue dutasteride 0.5 mg p.o. daily, tamsulosin 0.4 mg p.o. daily. Continue Lipitor 40 mg nightly. Continue nifedipine 30 mg daily. Full code. Lovenox.
[2018-04-13] MEDS: Finasteride 5 MG Tablet PO SCH (10:49)
--- NOTE | 2018-04-13 15:23 | P.CONID ---
History of Present Illness Service: Infectious Disease Consult date: 04/13/18 Requesting Physician: Maximiliano Kyle Reason for Consult: Evaluation and Mment of Left foot cellulitis Primary Care Provider: Flaco Horowitz DO Chief Complaint: Left foot pain, color change. History of Present Illness: Mr. Osorio is a 87-year-old male with a past medical history of hypertension, hyperlipidemia who presents to the emergency department on April 12, 2018 due to left leg discomfort as well as change in the color of his second and third toe of the left foot. Patient reports that he initially noticed symptoms on the ball of the foot on the left side. He called the [facility] but could not get an appointment for approximately 4 weeks for his account. Patient then had worsening of his symptoms and saw his primary care physician more recently and he was asked to come to the emergency department for further evaluation. Patient was admitted under hospitalist service vascular surgery has seen the patient and plans on angiogram on Sunday. Podiatry has seen the patient as well. Patient denies any fever chills or night sweats. Patient denies any chest pain or shortness of breath. Past medical history: BPH, hypertension, hyperlipidemia, bladder cancer Past surgical history: Left hip prosthetic joint. History of skin cancer removal from left calf area 2 years back. Cataract surgery, appendectomy, tonsillectomy, bladder cancer surgery Family history: MotherAlzheimer's disease, fatheraortic aneurysm. Social history: Patient smokes a pack a day. Drinks socially. Review of Systems All other systems reviewed negative except as stated in HPI PMFSH - History History Provided By: Patient - Medical History Medical History: Medical History (Last Reviewed 04/12/18 @ 11:29 by Mtathew Whalen MD) Bladder cancer Hypertension - Surgical History Surgical History: Surgical History (Last Reviewed 04/12/18 @ 11:29 by Matthew Whalen MD) History of hip surgery S/P wrist surgery - Tobacco History Second Hand Smoke Exposure: No Tobacco Use In Past 30 Days: Yes Smoking Status: Never smoker Tobacco Type: Cigarettes - Alcohol History How Often Do You Have a Drink Containing Alcohol: Never - Substance Use History Substance History: No History of Abuse - Travel History Recent Travel in the [place] Within the Last 8 Weeks: No Recent Travel Out of the Country Within the Last 8 Weeks: No - Immunization History Tetanus Immunization: <5 Years Medications and Allergies Active Medications: Active Medications Acetaminophen (Tylenol) 650 mg PO Q4H PRN PRN Reason: Headache, fever, pain 1-4 Al Hydroxide/Mg Hydroxide (Milk Of Magnesia Liq) 30 ml PO Q12H PRN PRN Reason: Mild Constipation Atorvastatin Calcium (Lipitor) 40 mg PO HS [facility] Last Admin: 04/12/18 21:56 Dose: 40 mg Bisacodyl (Dulcolax Supp) 10 mg RECTAL DAILY PRN PRN Reason: SEVERE CONSITIPATION Enoxaparin Sodium (Lovenox Inj) 40 mg SQ Q24H [facility] Last Admin: 04/12/18 14:37 Dose: Not Given Finasteride (Proscar) 5 mg PO DAILY [facility] Last Admin: 04/13/18 10:49 Dose: 5 mg Cefazolin Sodium/Dextrose (Ancef 2 Gm Premix Inj) 2 gm in 50 mls @ 100 mls/hr IV.SIG Q8H [facility] Last Infusion: 04/13/18 14:04 Dose: Infused Vancomycin HCl 1,000 mg/ (Sodium Chloride) 250 mls @ 250 mls/hr IV.SIG Q24H [facility] Lactulose (Lactulose Liq) 30 ml PO DAILY PRN PRN Reason: SEVERE CONSITIPATION Miscellaneous Information ([facility] Ordered Lab Info) 0 each OTHER ONCE ONE Stop: 04/16/18 13:46 Nifedipine (Procardia Xl) 30 mg PO DAILY [facility] Last Admin: 04/13/18 10:48 Dose: 30 mg Ondansetron HCl (Zofran Inj) 4 mg IV.PUSH Q6H PRN PRN Reason: NAUSEA OR VOMITING Pharmacy Profile Note (Vancomycin Consult Pharmacy) 1 each OTHER UNSCH PRN PRN Reason: Pharmacy to dose Sennosides (Senokot) 17.2 mg PO Q12H PRN PRN Reason: Moderate Constipation Sodium Chloride (Ns Flush) 2 ml IV.FLUSH BID [facility] Last Admin: 04/13/18 10:49 Dose: 2 ml Sodium Chloride (Ns Flush) 2 ml IV.FLUSH PRN PRN PRN Reason: FLUSH AFTER USING IV ACCESS Tamsulosin HCl (Flomax) 0.4 mg PO DAILY [facility] Last Admin: 04/13/18 10:48 Dose: 0.4 mg Allergies Allergy/AdvReac Type Severity Reaction Status Date / Time No Known Allergies Allergy Uncoded 02/15/16 06:07 Home Medications Medication Instructions Recorded Confirmed Type dutasteride 0.5 mg PO DAILY 04/12/18 04/12/18 History metoprolol tartrate 50 mg PO DAILY 04/12/18 04/12/18 History pravastatin 20 mg PO DAILY 04/12/18 04/12/18 History tamsulosin 0.4 mg PO DAILY 04/12/18 04/12/18 History Exam Vital signs: Vital Signs 04/12/18 16:20 04/12/18 20:00 04/13/18 00:00 Temperature 97.5 F L 97.8 F 98.0 F Pulse Rate 61 68 77 Respiratory Rate 16 17 17 Blood Pressure 151/70 H 145/72 H 129/62 Pulse Oximetry 96 95 94 L 04/13/18 04:00 04/13/18 07:18 04/13/18 11:19 Temperature 97.8 F 97.9 F 97.7 F Pulse Rate 75 75 76 Respiratory Rate 16 16 16 Blood Pressure 142/70 H 137/71 131/69 Pulse Oximetry 94 L 94 L 95 Intake & Output 04/12/18 04/13/18 04/13/18 18:59 06:59 18:59 Intake Total 300 / 300 100 / 100 50 / 50 Output Total 725 / 725 Balance 300 / 300 -625 / -625 50 / 50 Weight 69.4 kg Intake: IV 300 / 300 100 / 100 50 / 50 Zosyn 3.375 GM Premix 3.375 gm 50 / 50 In 50 ml @ 100 mls/hr IV.SIG ONCE ONE Rx#:[id number] Vancomycin Inj 1,000 MG In NS 250 / 250 Inj 250 ML @ 250 mls/hr IV.SIG ONCE ONE Rx#:[id number] Ancef 2 GM Premix Inj 2 gm In 100 / 100 50 / 50 50 ml @ 100 mls/hr IV.SIG Q8H [facility] Rx#:[id number] Output: Urine 725 / 725 Other: # Voids 2 Date of Last Bowel Movement 04/12/18 Weight On Admission 69.4 kg Narrative: GENERAL: Well-nourished well-developed, not in acute distress SKIN: Cool and dry, no generalized rash HEAD: Atraumatic. Normocephalic. No temporal or scalp tenderness. EYES: Pupils equal round and reactive. Scleral icterus. No injection or drainage. No petechia ENT: Nothing abnormal detected NECK: Trachea midline. Supple, nontender, no meningeal signs. CARDIOVASCULAR: HS audible. RESPIRATORY: Clear to auscultation bilaterally. GASTROINTESTINAL: Abdomen soft nontender. MUSCULOSKELETAL: Left foot with erythema on the dorsal aspect of the foot. Second and third toe with blackening noted. NEUROLOGICAL: Alert oriented 3. Nonfocal. Psych cooperative IV line sites ok. Results - Labs CBC & Chem 7: 04/12/18 11:30 04/13/18 08:20 Labs: Laboratory Results - last 24 hr 04/12/18 04/12/18 04/13/18 11:30 20:11 08:20 ESR 67 H Creatinine 1.14 Estimated GFR 61 L Procalcitonin 0.04 Random Vancomycin 4.4 - Imaging Extremity Arterial Study 04/12/18 00:00 CONCLUSION: Severely compromised runoff on the left. Satisfactory ankle index however moderate compromise of pedal circulation on the right Foot X-Ray 04/12/18 11:23 CONCLUSION: Osteopenia. No acute abnormality. Assessment and Plan - Plan Left foot cellulitis Left second and third toe with gangrene possible underlying osteomyelitis. 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 Active smoker. Counseled the patient. Recommendations: Continue cefazolin IV Continue vancomycin IV target trough 15-20 Follow cultures Follow clinical course
[2018-04-13] MEDS: Vancomycin Inj 1,000 MG in Sodium Chlor 0.9% Inj 250 ML IV.SIG SCH (17:05)
[2018-04-13] MEDS: Enoxaparin Inj 40 MG/0.4 ML Syringe SQ SCH (17:05)
[2018-04-14] MEDS: ceFAZolin 2 GM Premix Inj 2 GM/50 ML PIGGYBACK IV.SIG SCH ×3 (02:59→20:05)
[2018-04-14] MEDS: Finasteride 5 MG Tablet PO SCH (09:30)
--- NOTE | 2018-04-14 11:29 | P.PN ---
Subjective Interval history: Follow-up Critical limb ischemia with tissue loss and superimposed cellulitis April 13, 2018-patient seen and examined, afebrile. Complains of mild left lower extremity discomfort and pain April 14, 2018-patient seen and examined, reports improvement of left lower extremity pain. Afebrile. Physical Exam Vital signs: Vital Signs 04/13/18 15:37 04/13/18 20:00 04/14/18 00:00 Temperature 97.9 F 98 F 97.9 F Pulse Rate 84 86 89 Respiratory Rate 18 18 18 Blood Pressure 141/65 H 137/67 128/61 Pulse Oximetry 96 93 L 93 L 04/14/18 04:00 04/14/18 07:43 Temperature 97.8 F 97.7 F Pulse Rate 86 94 H Respiratory Rate 18 18 Blood Pressure 124/63 145/66 H Pulse Oximetry 93 L 95 Intake & Output 04/13/18 04/14/18 04/14/18 18:59 06:59 18:59 Intake Total 1300 / 1300 100 / 100 Output Total 1400 / 1400 Balance -100 / -100 100 / 100 Weight 69.4 kg Intake: IV 300 / 300 100 / 100 Vancomycin Inj 1,000 MG In NS 250 / 250 Inj 250 ML @ 250 mls/hr IV.SIG Q24H [facility] Rx#:[id number] Ancef 2 GM Premix Inj 2 gm In 50 / 50 100 / 100 50 ml @ 100 mls/hr IV.SIG Q8H [facility] Rx#:[id number] Oral 1000 / 1000 Output: Urine 1400 / 1400 Other: # Voids 2 Date of Last Bowel Movement 04/12/18 04/13/18 Narrative: GENERAL: NAD SKIN: Cool and dry, no generalized rash HEAD: Atraumatic. Normocephalic. No temporal or scalp tenderness. EYES: Pupils equal round and reactive. Scleral icterus. No injection or drainage. No petechia ENT: Nothing abnormal detected NECK: Trachea midline. Supple, nontender, no meningeal signs. CARDIOVASCULAR: HS audible. RESPIRATORY: Clear to auscultation bilaterally. GASTROINTESTINAL: Abdomen soft nontender. MUSCULOSKELETAL: Left foot with erythema on the dorsal aspect of the foot. Second and third toe with blackening noted. NEUROLOGICAL: Alert oriented 3. Nonfocal. Results - Labs CBC & Chem 7: 04/12/18 11:30 04/14/18 07:31 Laboratory Results - last 24 hr 02/10/19 07:31 Creatinine 1.19 Estimated GFR 58 L Microbiology 04/12/18 11:45 Blood - Peripheral Aerobic Blood Culture - Preliminary No growth in 2 days 04/12/18 11:45 Blood - Peripheral Anaerobic Blood Culture - Preliminary No growth in 2 days 04/12/18 11:30 Blood - Peripheral Aerobic Blood Culture - Preliminary No growth in 2 days 04/12/18 11:30 Blood - Peripheral Anaerobic Blood Culture - Preliminary No growth in 2 days Assessment and Plan - Plan 87-year-old man with Peripheral vascular disease Critical limb ischemia with tissue loss RANDALL with no evidence of acute limb ischemia, therefore no need for heparin drip. Appreciate input from vascular surgery and plan angiography likely on 2018. Continue aspirin, Lipitor 40 mg nightly. Consider Trental Consult podiatry as needed Superimposed cellulitis of the left foot Currently on cefazolin 2 g every 8 hours and continue vancomycin. Appreciate input from ID History of bladder cancer Hyperlipidemia BPH Hypertension Continue dutasteride 0.5 mg p.o. daily, tamsulosin 0.4 mg p.o. daily. Continue Lipitor 40 mg nightly. Continue nifedipine 30 mg daily. Full code. Lovenox.
[2018-04-14 15:34] LABS: Bilirubin,Urine Negative (Negative); Clarity,Urine Cloudy (Clear); Color,Urine Yellow (Yellw/Straw); Glucose,Urine (UA) Negative (Negative); Leukocyte Esterase,Urine Large (Negative); Mucus,Urine Few /lpf (Occasional); Nitrite,Urine Negative (Negative); Specific Gravity,Urine 1.016 (1.002-1.035)
[2018-04-14] MEDS: Vancomycin Inj 1,000 MG in Sodium Chlor 0.9% Inj 250 ML IV.SIG SCH (16:00)
[2018-04-14] MEDS: Enoxaparin Inj 40 MG/0.4 ML Syringe SQ SCH (18:44)
[2018-04-15] MEDS: ceFAZolin 2 GM Premix Inj 2 GM/50 ML PIGGYBACK IV.SIG SCH ×3 (03:54→21:19)
[2018-04-15] MEDS ORDERED: Chlorhexidine Gluconate 2% 1 Pack (2 Cloths) TOPICAL ONE (04:44)
[2018-04-15] MEDS ORDERED: Sodium Chlor 0.9% Inj 500 ML IV.SIG SCH (05:00)
[2018-04-15] MEDS: Finasteride 5 MG Tablet PO SCH (08:58)
--- NOTE | 2018-04-15 11:37 | P.PNIM ---
Subjective Interval history: Follow-up critical limb ischemia with tissue loss and superimposed cellulitis April 15, 2018patient seen and examined, denies any left lower extremity pain. Plan for angiogram today Physical Exam Vital signs: Vital Signs 04/14/18 11:58 04/14/18 15:52 04/14/18 20:00 Temperature 97.9 F 97.9 F 98.2 F Pulse Rate 90 93 H 99 H Respiratory Rate 16 18 19 Blood Pressure 143/67 H 138/73 130/68 Pulse Oximetry 96 95 93 L 04/15/18 00:00 04/15/18 04:00 04/15/18 07:20 Temperature 98 F 97.8 F 97.7 F Pulse Rate 95 H 87 100 H Respiratory Rate 18 18 20 Blood Pressure 150/92 H 135/65 143/74 H Pulse Oximetry 95 93 L 95 Intake & Output 04/14/18 04/15/18 04/15/18 18:59 06:59 18:59 Intake Total 1550 / 1550 700 / 700 Output Total 700 / 700 Balance 1550 / 1550 0 / 0 Intake: IV 300 / 300 100 / 100 Vancomycin Inj 1,000 MG In NS 250 / 250 Inj 250 ML @ 250 mls/hr IV.SIG Q24H [facility] Rx#:[id number] Ancef 2 GM Premix Inj 2 gm In 50 / 50 100 / 100 50 ml @ 100 mls/hr IV.SIG Q8H [facility] Rx#:[id number] Oral 1250 / 1250 600 / 600 Output: Urine 700 / 700 Other: # Voids 4 Date of Last Bowel Movement 04/14/18 04/13/18 04/13/18 Narrative: GENERAL: NAD SKIN: Warm and dry. HEAD: Atraumatic. Normocephalic. EYES: Pupils equal and round. No scleral icterus. No injection or drainage. ENT: No nasal bleeding or discharge. Mucous membranes pink and moist. NECK: Trachea midline. No JVD. CARDIOVASCULAR: Regular rate and rhythm. RESPIRATORY: No accessory muscle use. Clear to auscultation. Breath sounds equal bilaterally. GASTROINTESTINAL: Abdomen soft, non-tender, nondistended. Hepatic and splenic margins not palpable. MUSCULOSKELETAL: Left foot with erythema on the dorsal aspect of the foot. Second and third toe with blackening noted. NEUROLOGICAL: Awake and alert. No obvious cranial nerve deficits. Motor grossly within normal limits. Five out of 5 muscle strength in the arms and legs. Normal speech. PSYCHIATRIC: Appropriate mood and affect; insight and judgment normal. Results Labs CBC & Chem 7: 04/12/18 11:30 04/14/18 07:31 Labs: Microbiology 04/12/18 11:45 Blood - Peripheral Aerobic Blood Culture - Preliminary No growth in 3 days 04/12/18 11:45 Blood - Peripheral Anaerobic Blood Culture - Preliminary No growth in 3 days 04/12/18 11:30 Blood - Peripheral Aerobic Blood Culture - Preliminary No growth in 3 days 04/12/18 11:30 Blood - Peripheral Anaerobic Blood Culture - Preliminary No growth in 3 days Assessment and Plan Plan 87-year-old man with Peripheral vascular disease Critical limb ischemia with tissue loss RANDALL with no evidence of acute limb ischemia, therefore no need for heparin drip. Appreciate input from vascular surgery and plan angiography today 04/15/2018. Continue aspirin, Lipitor 40 mg nightly. Consult podiatry as needed Superimposed cellulitis of the left foot Currently on cefazolin 2 g every 8 hours and continue vancomycin. Monitor culture report Appreciate input from ID History of bladder cancer Hyperlipidemia BPH Hypertension Continue dutasteride 0.5 mg p.o. daily, tamsulosin 0.4 mg p.o. daily. Continue Lipitor 40 mg nightly. Continue nifedipine 30 mg daily. Full code. Lovenox. Progress Note: Quality VTE Deep Vein Thrombosis/Pulmonary Embolism Present on Admission: No
[2018-04-15] MEDS ORDERED: Heparin/NS PF Inj 1,000 ML ONE (12:24)
[2018-04-15] MEDS ORDERED: fentaNYL Citrate Inj 100 MCG/2 ML Ampul ONE ×2 (12:25→13:25)
[2018-04-15] MEDS ORDERED: Heparin 10,000 UNITS/10 ML Vial (for IV use) ONE (12:25)
[2018-04-15] MEDS ORDERED: Iohexol 350 MG/ML 100 ML Vial (for Cath Lab) IVCONTRAST ONE (13:00)
--- NOTE | 2018-04-15 14:08 | CATHPROC ---
Project Fixup HIS Report Study Information Study Number Admission Scheduled Start Study Start [id number] Apr 12 2018 1:19PM 04/15/2018 Apr 15 2018 12:04PM [place] Service Cardiac Catheterization Admit Source Facility Department Emergency department [facility] - Field Account Director Physician and Clinical Staff Initial Sai Hahn Office Clerk Assistant Rukhsana Herr,LUTHER Office Clerk AssistantJesus Broderick,RN Recorder Epi Garber,RT(R) Scrub Skip RealRT(R) Procedures Performed Procedure Location (Site) Vessel Name Abdominal Angiogram Aortic Other Angiogram (manual) Popliteal L (L10) Popliteal PTCA SFA (left) Femoral Art Wire insertion Fem Art (right) Femoral Art Equipment Time Butcher Scullion Description Size Mfg Part Number Used/Scraped PERCLOSE, PRO GLIDE CLOSER 14:07 [employer] FR 6 [id number] *[id number] Used DEVICE [id number] 13:08 [employer] WIRE, SPARTACORE 5*300CM 300CM Used *[id number] 12:59 [employer] WIRE, SPARTACORE 5*300CM 300CM Used *[id number] 12:59 [employer] WIRE, SPARTACORE 5*300CM 300CM Used *[id number] 12:45 [employer] WIRE, SUPERCORE 300CM 300CM Used *[id number] 13:23 [employer] WIRE, SUPERCORE 300CM 300CM Used *[id number] 12:05 [employer] WIRE, SUPRACORE 190CM 190cm Used *[id number] 12:05 ANGIO-DYNAMICS OMNI FLUSH 65CM CATHETER FR 4 Used *[id number] INTRODUCER SET, 12:05 [employer] FR 5 [id number] *[id number] Used MICROPUNCTURE STIFF OUTBACK LTD CATHETER, FR5-9 [id number] 13:00 CORDIS/ SUSAN 120CM Used 120CM *[id number] ENDOVASCULAR BALLOON, NANOCROSS 3.0 X [id number] 13:14 3.0 X 60 Used COMPANY 60MM 150CM *[id number] ENDOVASCULAR [id number] 13:36 STENT, EVERFLEX 6 X 200 120CM 6 X 200 Used COMPANY 120 *[id number] ENDOVASCULAR STENT, EVERFLEX ENTRUST 6 X [id number] 13:41 FR 5 Used COMPANY 150 120CM 120 *[id number] BALLOON, EVERCROSS 6 X 200 [id number] 13:24 [employer] 6 X 200 Used 135CM *[id number] WIRE, CHOICE PT 300CM [place] EX. [id number] 13:48 Meditech 300CM Used SUPP *[id number] 12:05 [employer] PACK, CCL CUSTOM * Used *[id number] EXPORTAP 13:46 MEDTRONIC CATHETER, EXPORT ASPIRATON Used *[id number] 13:16 CUPS 30 MILLY INDEFLATOR Used *[id number] PROBE COVER, STERILE [id number] 12:05 [employer] MEDICAL * Used ULTRASOUND W/ GEL *[id number] 12:05 NAMIC MANIFOLD, 4 PORT * Used *[id number] 12:05 NYCOMED OMNIPAQUE, 300 MG, 150ML 150ML [id number] Used 12:05 NYCOMED OMNIPAQUE, 300 MG, 50ML 50ML [id number] Used 13:29 [employer]COMED OMNIPAQUE, 300 MG, 50ML 50ML [id number] Used 13:37 [employer]ED OMNIPAQUE, 300 MG, 50ML 50ML [id number] Used [id number] 12:05 TERUMO [employer] SHEATH, FR5 TERUMO (10CM) FR 5 Used *[id number] 12:45 [employer]UM[employer] MEDICAL/SUSAN CATHETER, NAVICROSS ANG .035 135CM Used 716 SHEATH, FR6 PINNACLE 38712 12:44 [employer]/SUSAN FR 6 Used DESTINATION 45CM *[id number] WIRE, ANGLED GLIDE .035 [id number] 12:05 [employer]UM[employer] MEDICAL/SUSAN 260CM Used 260CM *[id number] WIRE, ANGLED GLIDE .035 [id number] 12:41 [employer] MEDICAL/SUSAN 260CM Used 260CM *[id number] WIRE, STRIGHT GLIDE STIFF [id number] 12:48 [employer]/SUSAN 260CM Used .035 260CM *[id number] Equipment Model, Serial, Lot Number and Expiration Data Description Model Number Serial Number Lot Number Expiration Date CATHETER, EXPORT ASPIRATON [id number] 12-26-2019 CATHETER, NAVICROSS ANG .035 [id number] 01-02-2021 STENT, EVERFLEX 6 X 200 120CM [id number] 02-17-2021 STENT, EVERFLEX ENTRUST 6 X [id number] 12-28-2019 150 120CM WIRE, CHOICE PT 300CM PT EX. 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 PROCARDIA LOVENOX History: Allergies Allergy Reaction No Known Allergies History: Risk Factors Family History of Hypertension Dyslipidemia Previous NV Previous Heart Failure Premature CAD Yes Yes No No No Prior Valve Prior PCI Prior CABG Surgery No No No Cerebrovascular Peripheral Artery Chronic Lung On Dialysis Diabetes Disease Disease Disease No No Yes No No History: Risk Factors Selection Items Current Smoker History: Stress Tests Stress or Imaging Studies Performed No History: Other Disease Selection Items Cancer HTN History: Other Current Smoker Method Packs a Day Years Used Pack Years Yes Cigarettes 1 70 70 Labs Hgb (g/dl) Hct (%) WBC (l/cumm) Platelets (thousands) 11.60-17.00 35.00-51.00 4.00-11.00 150.00-450.00 13.6 39.5 13.9 447 Glucose (mg/dl) BUN (mg/dl) Creatinine (mg/dl) BUN:Creatinine (1:x) 74.00-106.00 7.00-18.00 0.50-1.30 10.00-20.00 102 23 1.3 17.7 Na (meq/l) K (meq/l) 136.00-145.00 3.50-5.10 137 4.7 CPK-MB (ng/ML) 0.50-3.60 0.0 Medication Medication Total Dose (Bolus/Oral) Medication Total Dosage/Unit 1% XYLOCAINE 20 mL FENTANYL 100 mcg HEPARIN 5000 units VERSED 3 mg Medications (Bolus/Oral) Medication Time Given Dosage/Unit Administered By Reason 1% XYLOCAINE 04/15/2018 12:37:40 PM 20 mL Sai Farooq Patient arrived on 20 mL 1% XYLOCAINE given by Sai Farooq in Right Groin via Subcutaneous. HEPARIN 04/15/2018 12:46:25 PM 3000 units Sai Farooq Patient arrived on 3000 units HEPARIN given by Sai Farooq via Peripheral IV. HEPARIN 04/15/2018 1:20:13 PM 2000 units Rukhsana Herr 2000 units HEPARIN given in lab by Rukhsana Herr RN via Peripheral IV. Ordered by Sai Farooq. VERSED 04/15/2018 1:27:01 PM 1 mg Adamy, Rukhsana 1 mg VERSED given in lab by Rukhsana Herr RN via Peripheral IV. Ordered by Sai Farooq. FENTANYL 04/15/2018 1:27:09 PM 50 mcg Adamy, Rukhsana 50 mcg FENTANYL given in lab by Rukhsana Herr RN via Peripheral IV. Ordered by Sai Farooq. VERSED 04/15/2018 1:42:42 PM 2 mg Adamy, Rukhsana 2 mg VERSED given in lab by Rukhsana Herr RN via Peripheral IV. Ordered by Sai Farooq. FENTANYL 04/15/2018 1:42:48 PM 50 mcg Adamy, Rukhsana 50 mcg FENTANYL given in lab by Rukhsana Herr RN via Peripheral IV. Ordered by Sai Farooq. Medication (Drip) Medication Time Given Dosage/Unit Concentration/Unit Diluent (ml) Solutio n IV Solutions 04/15/2018 12:11:51 PM 0 mL (IV) 1000 NaCl .9 Patient arrived on IV Solutions in Left Wrist via Peripheral IV. Pump/Drip Flow = 20 ml/hr using NaCl .9. Initial Case Assessment Cardiovascular HR Rhythm Chest Pain 61 Sinus 0 Edema Present Skin color Skin None Normal Warm Dry Circulatory - Right Pulses Dorsalis Pedis Femoral 2 2 Scale (0,1,2,3,4,d) Circulatory - Left Pulses Dorsalis Pedis Femoral 2 2 Scale (0,1,2,3,4,d) Neurological State Oriented to time-place- Alert Moves all extremities person Respiration - General Respiration Rate SpO2 (%) O2 (lpm) (B/min) 8 97 0 Chronological Log Time Study Chronological Log 12:11:37 Patient arrived via Bed. 12:11:39 Patient Name, D.O.B, / Armband Verified By R.N. 12:11:39 Consent signed by the physician and the patient and verified by the Field Account Director staff. 12:11:40 Pre-op and post- op instructions given; patient acknowledges understanding of instruction s. 12:11:41 Verbal Stimulation=2 Physical Stimulation=2 Airway=2 Respiration=2 TOTAL=8. (0=absent, 1= limited, 2=present) 12:11:42 Presedation assessment performed by Field Account Director RN. 12:11:45 Patient has been NPO for More than 6Hrs. 12:11:46 Skin Breakdown- none per patient. 12:11:47 Patient Warmer Placed on the Table. 12:11:48 Yulissa Prominences Protected 12:11:49 A # 20 IV was noted in the Wrist (left). Grade = 0 12:11:51 Patient arrived on IV Solutions in Left Wrist via Peripheral IV. Pump/Drip Flow = 20 ml/h r using NaCl .9. 12:11:52 History and physical on the chart or being dictated. Assessment: Initial Case, HR=61 BPM, Rhythm=Sinus, Chest Pain=0, Edema=None, Color=Normal, Skin = Warm, Dry Right Pulses: Moris Ped=2, Femoral=2 12:11:53 Left Pulses: Moris Ped=2, Femoral=2 Neurological: State=Alert, Ox3, VALDERRAMA Respiration: Resp=8 B/min, SpO2=97 %, O2=0 lpm Vitals capture started with the following parameters, Patient=Adult, Interval=5 min, Initial Pr slioeb=009 mmHg, 12:21:03 Deflation Rate=5 mmHg, Cuff placed on Right Arm 12:21:40 HR=59 bpm, PNTL=938/72 mmhg, Resp=12 B/min, Pain=0, Bimal=10, Merrill=2 12:26:37 HR=68 bpm, TEJB=766/77 mmhg, SpO2=93.0 %, Resp=11 B/min, Pain=0, Bimal=10, Merrill=2 12:28:57 Bilateral groins prepped with 2% chlorhexidine, and draped after a 3 minute waiting time. 12:31:36 HR=76 bpm, TLLH=996/81 mmhg, SpO2=91.0 %, Resp=15 B/min, Pain=0, Bimal=10, Merrill=2 12:33:42 Pressure channel 2 zeroed. 12:35:19 Reference ECG taken 12:36:37 HR=68 bpm, TTDS=589/80 mmhg, SpO2=93.0 %, Resp=15 B/min, Pain=0, Bimal=10, Merrill=2 Time Out. Correct patient, correct procedure, correct physician, labs, allergies, and equipment verified with starch factory laborer 12:37:20 team present. Fire risk assesment completed (see hard stop sheet for coding). Time Out Conc urred by MD and individual staff in procedure. 12:37:25 Case Start 12:37:40 Patient arrived on 20 mL 1% XYLOCAINE given by Sai Farooq in Right Groin via Subcutane ous. A INTRODUCER SET, MICROPUNCTURE STIFF FR 5 was advanced into the Fem Art (right) using the Jeremy fied Seldinger 12:38:46 technique. A SHEATH, FR5 TERUMO (10CM) FR 5 was exchanged in the Fem Art (right). This was necessary in or nick to 12:39:47 accomodate a larger catheter. A OMNI FLUSH 65CM CATHETER FR 4 was advanced over a wire. OMNIPAQUE, 300 MG, 150ML 150ML was us ed for 12:39:55 injections. 12:40:05 Through a OMNI FLUSH 65CM CATHETER FR 4, The Abdominal Aorta was injected with ~CC'S~ cc's of contrast. 12:41:31 A WIRE, ANGLED GLIDE .035 260CM 260CM was inserted via Fem Art (right). 12:41:38 HR=84 bpm, VWMC=296/87 mmhg, SpO2=88.0 %, Resp=15 B/min, Pain=0, Bimal=10, Merrill=2 12:42:42 omni advanced to left side 12:42:53 Wire removed 12:42:59 L LEG RUN OFF A SHEATH, FR6 PINNACLE DESTINATION 45CM FR 6 was exchanged in the Fem Art (right). This was nec essary in 12:45:12 order for catheter support. 12:46:25 Patient arrived on 3000 units HEPARIN given by Sai Farooq via Peripheral IV. 12:46:39 HR=83 bpm, KLZM=200/77 mmhg, SpO2=92.0 %, Resp=12 B/min, Pain=0, Bimal=10, Merrill=2 12:47:57 A WIRE, STRIGHT GLIDE STIFF .035 260CM 260CM was inserted via Fem Art (right). A CATHETER, NAVICROSS ANG .035 135CM was advanced over a wire. OMNIPAQUE, 300 MG, 150ML 150ML w as used 12:48:29 for injections. 12:51:43 HR=60 bpm, BHBU=280/77 mmhg, SpO2=95.0 %, Resp=16 B/min, Pain=0, Bimal=10, Merrill=2 12:52:50 Wire removed 12:55:00 Catheter was removed 12:56:44 HR=92 bpm, YGKX=562/77 mmhg, SpO2=95.0 %, Resp=9 B/min, Pain=0, Bimal=10, Merrill=2 12:59:57 A WIRE, SPARTACORE 5*300CM 300CM was inserted via Fem Art (right). A OUTBACK LTD CATHETER, FR5-9 120CM 120CM was advanced over a wire. OMNIPAQUE, 300 MG, 150ML 15 0ML was 13:00:09 used for injections. 13:01:47 HR=69 bpm, GNHD=807/81 mmhg, SpO2=94.0 %, Resp=13 B/min, Pain=0, Bimal=10, Merrill=2 13:06:44 HR=59 bpm, GTJJ=482/84 mmhg, SpO2=92.0 %, Resp=15 B/min, Pain=0, Bimal=10, Merrill=2 13:11:47 HR=58 bpm, WHXR=515/78 mmhg, SpO2=97.0 %, Resp=12 B/min, Pain=0, Bimal=10, Merrill=2 A CATHETER, NAVICROSS ANG .035 135CM was advanced over a wire. OMNIPAQUE, 300 MG, 150ML 150ML w as used 13:12:58 for injections. 13:13:45 Catheter was removed A BALLOON, NANOCROSS 3.0 X 60MM 150CM 3.0 X 60 was inserted over WIRE, SPARTACORE 5*300CM 300CM via 13:14:50 the SFA (left). A BALLOON, NANOCROSS 3.0 X 60MM 150CM 3.0 X 60 over a WIRE, SPARTACORE 5*300CM 300CM in the SFA (left) 13:15:35 was inflated using a 30 MILLY INDEFLATOR at 4 milly for 35 sec. 13:16:44 HR=85 bpm, YWUS=577/87 mmhg, SpO2=95.0 %, Resp=14 B/min, Pain=0, Bimal=10, Merrill=2 13:18:53 Balloon Removed. A CATHETER, NAVICROSS ANG .035 135CM was advanced over a wire. OMNIPAQUE, 300 MG, 150ML 150ML w as used 13:19:08 for injections. 13:20:13 2000 units HEPARIN given in lab by Rukhsana Herr, LUTHER via Peripheral IV. Ordered by Michael. Oseas 13:21:51 Wire removed 13:21:56 Popliteal L (L10) angiogram, manually injected. 13:22:20 HR=68 bpm, KQEO=114/83 mmhg, SpO2=96.0 %, Resp=15 B/min, Pain=0, Bimal=10, Merrill=2 13:25:12 A WIRE, SUPERCORE 300CM 300CM was inserted via Fem Art (right). A BALLOON, EVERCROSS 6 X 200 135CM 6 X 200 was inserted over WIRE, SUPERCORE 300CM 300CM via th e SFA 13:26:17 (left). A BALLOON, EVERCROSS 6 X 200 135CM 6 X 200 over a WIRE, SUPERCORE 300CM 300CM in the SFA (left) was 13:26:34 inflated using a 30 MILLY INDEFLATOR at 6 milly for 20 sec. 13:26:48 HR=68 bpm, ANDW=283/77 mmhg, SpO2=97.0 %, Resp=14 B/min, Pain=0, Bimal=10, Merrill=2 A BALLOON, EVERCROSS 6 X 200 135CM 6 X 200 over a WIRE, SUPERCORE 300CM 300CM in the SFA (left) was 13:26:56 inflated using a 30 MILLY INDEFLATOR at 6 milly for 20 sec. 13:27:01 1 mg VERSED given in lab by Rukhsana Herr, LUTHER via Peripheral IV. Ordered by Don Farooq 13:27:09 50 mcg FENTANYL given in lab by Rukhsana Herr, LUTHER via Peripheral IV. Ordered by Nivia Farooq. A BALLOON, EVERCROSS 6 X 200 135CM 6 X 200 over a WIRE, SUPERCORE 300CM 300CM in the SFA (left) was 13:28:21 inflated using a 30 MILLY INDEFLATOR at 6 milly for 20 sec. 13:31:49 HR=80 bpm, ZPRK=292/79 mmhg, SpO2=98.0 %, Resp=12 B/min, Pain=0, Bimal=10, Merrill=2 A BALLOON, EVERCROSS 6 X 200 135CM 6 X 200 over a WIRE, SUPERCORE 300CM 300CM in the SFA (left) was 13:32:57 inflated using a 30 MILLY INDEFLATOR at 6 milly for 20 sec. 13:33:55 Balloon Removed. 13:36:52 HR=59 bpm, UVCZ=657/84 mmhg, SpO2=98.0 %, Resp=15 B/min, Pain=0, Bimal=10, Merrill=2 A STENT, EVERFLEX 6 X 200 120CM 6 X 200 was advanced through a CATHETER, NAVICROSS ANG .035 135 CM over a 13:41:23 WIRE, SUPERCORE 300CM 300CM. 13:41:49 HR=83 bpm, LCGX=383/85 mmhg, SpO2=96.0 %, Resp=15 B/min A STENT, EVERFLEX ENTRUST 6 X 150 120CM FR 5 was advanced through a CATHETER, NAVICROSS ANG .03 5 135CM 13:42:22 over a WIRE, SUPERCORE 300CM 300CM. 13:42:42 2 mg VERSED given in lab by Rukhsana Herr RN via Peripheral IV. Ordered by Don Farooq 13:42:48 50 mcg FENTANYL given in lab by Rukhsana Herr, LUTHER via Peripheral IV. Ordered by Nivia Farooq. 13:46:52 HR=69 bpm, DGJZ=310/85 mmhg, SpO2=98.0 %, Resp=13 B/min, Pain=0, Bimal=10, Merrill=2 13:47:54 Wire removed 13:47:57 A WIRE, CHOICE PT 300CM PT EX. SUPP 300CM was inserted via Fem Art (right). 13:51:51 HR=61 bpm, MCGN=395/87 mmhg, SpO2=97.0 %, Resp=14 B/min, Pain=0, Bimal=10, Merrill=2 13:56:52 HR=92 bpm, KSCE=328/89 mmhg, SpO2=99.0 %, Resp=17 B/min, Pain=0, Bimal=10, Merrill=2 14:01:47 HR=60 bpm, ZVMZ=168/91 mmhg, SpO2=98.0 %, Resp=16 B/min, Pain=0, Bimal=10, Merrill=2 14:02:51 Wire removed 14:02:53 Catheter was removed 14:03:03 Case End (Physician broke scrub) 14:06:42 PERCLOSE, PRO GLIDE CLOSER DEVICE FR 6 placement in the Fem Art (right) 14:06:50 HR=47 bpm, FMQW=114/83 mmhg, SpO2=78 %, Resp=19 B/min End Study - Contrast Media Used In Study Contrast Total Opened (mL) Total Used (mL) Total Wasted (mL) Omnipaque 300 300 250 50 End Study - Maximum Contrast Load Max Contrast Load (mL) 267.0 End Study - Radiation Exposure Fluoro Time Fluoro Dose (mGy) Cine Dose (uGym2) (minutes) 24.9 [id number] 3577 End Study - Patient Disposition Complications Transferred To Interventional Outcome No Telemetry Bed successful
--- NOTE | 2018-04-15 14:17 | ECG ---
Date Performed: 04/14/2018 Time Performed: 20:10:25 PTAGE: 87 years EKG: Sinus rhythm BORDERLINE LEFT AXIS DEVIATION NONSPECIFIC T-WAVE ABNORMALITY BORDERLINE ECG Since the PREVIOUS TRACING , no significant change noted PREVIOUS TRACIN11/14/2016 20.33 DOCTOR: Dylan Nichols Interpretating Date/Time 04/15/2018 14:12:53
--- NOTE | 2018-04-15 14:29 | P.OP ---
Preoperative Diagnosis: Left lower extremity critical limb ischemia tissue loss Postoperative Diagnosis: Left lower extremity critical limb ischemia tissue loss Date of procedure: 04/15/18 Procedure: 1. Ultrasound and axis of the right common femoral artery 2. AIF angiogram 3. Left lower extremity third order angiogram 4. PEWTER FINISHER and stenting of the left superficial femoral artery/left popliteal artery 5. Left posterior tibial artery mechanical thrombectomy 6. Perclose of the right common femoral artery 7. Radiological supervision interpretation 8. Conscious sedation X 2 hours Surgeon: Sai Farooq MD Estimated blood loss (mL): 5 Operation and Findings: Findings 1. Chronic total occlusion of the left superficial femoral artery, supragenicular popliteal artery along their entire length which measures 30 cm. I was able to cross this occlusion using a reentry device. The vessels were treated by balloon angioplasty with provisional stenting using a 6 mm x 150 mm and 6 mm x 100 mm self-expandable stents. There is no flow-limiting dissection or residual stenosis. 2. After treating the vessels I noted an excellent defect in the left posterior tibial artery which represents embolic plaque versus thrombus. Successful suction embolectomy using a Pronto catheter was performed. 3. Single-vessel runoff to the right foot via the left posterior tibial artery. 4. The infrarenal abdominal aorta, bilateral common iliac artery, external iliac artery with noted to be patent with no evidence of significant stenosis. Operation details The patient was taken to the operating room, laid supine on the OR table. After adequate sedation, the patient was prepped and draped in the standard sterile fashion. Timeout was called with all members and you are in agreement. 1% lidocaine was injected in the right groin. Using ultrasound again access, I placed a 5 Bhutanese sheath in the right common femoral artery. Catheter was advanced into the infrarenal abdominal aorta and an AIF angiogram was performed. A catheter was advanced in the left common femoral artery and left lower extremity third order angiogram was performed. At this point, the patient was heparinized and a 6 Bhutanese destination sheath was placed with the tip in the left common femoral artery. I was able to cross the SENIOR STRUCTURAL ENGINEER occlusion using a stiff Glidewire and I noted that the catheter was on the fourth lumen. I used an Outback reentry device to place an 014 wire in the true lumen. Confirmation of true lumen placement was performed using the diagnostic angiography. At this point we noted a filling defect in the right posterior tibial artery. An 035 wire was placed and balloon angioplasty with provisional stenting was performed to the left popliteal artery and superficial femoral artery. And completion angiogram was performed. At this point an 014 wire was advanced into the left posterior tibial artery. Upon the catheter was used to perform suction thrombectomy of the right posterior tibial artery. Completion angiogram was performed. At this point all wire cath and sheath removed was easily achieved by applying a Perclose device the right common femoral artery. The patient tolerated the procedure well and was taken to recovery unit in stable condition. Conclusion This is a pleasant patient who presented with left lower extremity critical limb ischemia tissue loss. I performed a diagnostic angiography that shows chronic total occlusion of the entire length of the superficial femoral artery and popliteal artery. I was able to treat this using balloon angioplasty with provisional stenting. Patient has a single runoff to the left posterior tibial artery. He has a palpable left posterior tibial pulse at the end of the procedure. I will consult the podiatry team to evaluate his left foot and plan his care. He is cleared from vascular standpoint for any required procedures to the left foot.
[2018-04-15] MEDS: Enoxaparin Inj 40 MG/0.4 ML Syringe SQ SCH (14:43)
[2018-04-15] MEDS: Vancomycin Inj 1,000 MG in Sodium Chlor 0.9% Inj 250 ML IV.SIG SCH (16:29)
[2018-04-16] MEDS: ceFAZolin 2 GM Premix Inj 2 GM/50 ML PIGGYBACK IV.SIG SCH ×3 (05:48→21:14)
[2018-04-16] MEDS: Finasteride 5 MG Tablet PO SCH (08:31)
--- NOTE | 2018-04-16 10:15 | P.PNIM ---
Subjective Interval history: Follow-up critical limb ischemia with tissue loss and superimposed cellulitis of the left foot April 16, 2018-patient seen and examined, denies any significant left lower extremity pain. Patient is status post angiogram with stenting artery April 15, 2018 vascular surgery. Physical Exam Vital signs: Vital Signs 04/15/18 14:18 04/15/18 20:00 04/16/18 00:00 Temperature 98.4 F 98.0 F Pulse Rate 100 H 97 H Respiratory Rate 20 20 Blood Pressure 143/76 H 143/84 H Pulse Oximetry 97 96 93 L 04/16/18 04:00 04/16/18 07:45 04/16/18 10:03 Temperature 98.2 F 98.6 F Pulse Rate 91 H 91 H Respiratory Rate 20 20 Blood Pressure 138/72 134/79 Pulse Oximetry 94 L 93 L 96 Intake & Output 04/15/18 04/16/18 04/16/18 18:59 06:59 18:59 Intake Total 550 / 550 100 / 100 Output Total 375 / 375 Balance 550 / 550 -275 / -275 Weight 68 kg Intake: IV 50 / 50 100 / 100 Ancef 2 GM Premix Inj 2 gm In 50 / 50 100 / 100 50 ml @ 100 mls/hr IV.SIG Q8H MARYBETH Rx#:[id number] Oral 500 / 500 Output: Urine 375 / 375 Other: Date of Last Bowel Movement 04/13/18 04/13/18 04/13/18 Narrative: GENERAL: NAD SKIN: Warm and dry. HEAD: Atraumatic. Normocephalic. EYES: Pupils equal and round. No scleral icterus. No injection or drainage. ENT: No nasal bleeding or discharge. Mucous membranes pink and moist. NECK: Trachea midline. No JVD. CARDIOVASCULAR: Regular rate and rhythm. RESPIRATORY: No accessory muscle use. Clear to auscultation. Breath sounds equal bilaterally. GASTROINTESTINAL: Abdomen soft, non-tender, nondistended. Hepatic and splenic margins not palpable. MUSCULOSKELETAL: Left foot with erythema on the dorsal aspect of the foot. Second and third toe with blackening noted. NEUROLOGICAL: Awake and alert. No obvious cranial nerve deficits. Motor grossly within normal limits. Five out of 5 muscle strength in the arms and legs. Normal speech. PSYCHIATRIC: Appropriate mood and affect; insight and judgment normal. Results Labs CBC & Chem 7: 04/12/18 11:30 04/16/18 07:55 Labs: Microbiology 04/14/18 13:00 Clean Catch Urine Urine Culture - Preliminary Group D Enterococcus 04/12/18 11:45 Blood - Peripheral Aerobic Blood Culture - Preliminary No growth in 3 days 04/12/18 11:45 Blood - Peripheral Anaerobic Blood Culture - Preliminary No growth in 3 days 04/12/18 11:30 Blood - Peripheral Aerobic Blood Culture - Preliminary No growth in 3 days 04/12/18 11:30 Blood - Peripheral Anaerobic Blood Culture - Preliminary No growth in 3 days Assessment and Plan Plan 87-year-old man with Peripheral vascular disease Critical limb ischemia with tissue loss Appreciate input from vascular surgery patient is s/p PATIENT ACCOUNT ANALYST and stenting of the left superficial femoral artery/left popliteal artery as well as left posterior tibial artery mechanical thrombectomy 04/15/18 Continue aspirin, Lipitor 40 mg nightly. Consult podiatry as needed Superimposed cellulitis of the left foot Currently on cefazolin 2 g every 8 hours and continue vancomycin. Monitor culture report Appreciate input from ID UTI-group D enterococcus Currently on IV antibiotics from above History of bladder cancer Hyperlipidemia BPH Hypertension Continue dutasteride 0.5 mg p.o. daily, tamsulosin 0.4 mg p.o. daily. Continue Lipitor 40 mg nightly. Continue nifedipine 30 mg daily. Full code. Lovenox. Progress Note: Quality VTE Deep Vein Thrombosis/Pulmonary Embolism Present on Admission: No
--- NOTE | 2018-04-16 13:03 | P.PNVS ---
Subjective Subjective/Hospital Course: Doing well Reports improvement in left lower extremity pain Objective Vital Signs / I&O: Vital Signs 04/15/18 14:18 04/15/18 20:00 04/16/18 00:00 Temperature 98.4 F 98.0 F Pulse Rate 100 H 97 H Respiratory Rate 20 20 Blood Pressure 143/76 H 143/84 H Pulse Oximetry 97 96 93 L 04/16/18 04:00 04/16/18 07:45 04/16/18 10:03 Temperature 98.2 F 98.6 F Pulse Rate 91 H 91 H Respiratory Rate 20 20 Blood Pressure 138/72 134/79 Pulse Oximetry 94 L 93 L 96 04/16/18 11:45 Temperature 98.4 F Pulse Rate 104 H Respiratory Rate 20 Blood Pressure 136/75 Pulse Oximetry 93 L Intake & Output 04/15/18 04/16/18 04/16/18 18:59 06:59 18:59 Intake Total 550 / 550 100 / 100 250 / 250 Output Total 375 / 375 Balance 550 / 550 -275 / -275 250 / 250 Weight 68 kg Intake: IV 50 / 50 100 / 100 250 / 250 Vancomycin Inj 1,000 MG In NS 250 / 250 Inj 250 ML @ 250 mls/hr IV.SIG Q24H [facility] Rx#:[id number] Ancef 2 GM Premix Inj 2 gm In 50 / 50 100 / 100 50 ml @ 100 mls/hr IV.SIG Q8H [facility] Rx#:[id number] Oral 500 / 500 Output: Urine 375 / 375 Other: Date of Last Bowel Movement 04/13/18 04/13/18 04/13/18 Physical Exam: Right groin clean dry intact No hematoma Palpable +2 left PT pulse Laboratory Results - last 24 hr 04/14/18 04/16/18 13:00 07:55 Creatinine 1.19 Estimated GFR 58 L Urine Color Yellow Urine Clarity Cloudy H Urine pH 5.0 Ur Specific Osteen 1.016 Urine Protein 30 H Urine Glucose (UA) Negative Urine Ketones Negative Urine Occult Blood Small H Urine Nitrate Negative Urine Bilirubin Negative Urine Urobilinogen Less than 2 Ur Leukocyte Esterase Large H Urine RBC 13 H Urine WBC Urine WBC Clumps Many H Urine Mucus Few H Micro UA Comment Culture indicated Urine Culture Comments Culture indicated Microbiology 04/12/18 11:45 Aerobic Blood Culture - Preliminary Blood - Peripheral No growth in 4 days Anaerobic Blood Culture - Preliminary No growth in 4 days 04/12/18 11:30 Aerobic Blood Culture - Preliminary Blood - Peripheral No growth in 4 days Anaerobic Blood Culture - Preliminary No growth in 4 days 04/14/18 13:00 Urine Culture - Final Clean Catch Urine Enterococcus faecalis Assessment and Plan - Plan Critical limb ischemia with tissue loss No evidence of acute limb ischemia Left 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 Status post CLINICAL SERVICES SPECIALIST/stenting of the left superficial femoral artery, popliteal artery postop day #1 1. PT/OT 2. Awaiting podiatry consult 3. Will need 6 weeks of Plavix. 4. Continue with statin/aspirin. Sai Farooq MD [facility] [phone]
--- NOTE | 2018-04-16 13:04 | P.PNID ---
Subjective Remarks: Mr. Thompson is a 87-year-old male with a past medical history of hypertension, hyperlipidemia who presents to the emergency department on April 12, 2018 due to left leg discomfort as well as change in the color of his second and third toe of the left foot. Patient reports that he initially noticed symptoms on the ball of the foot on the left side. He called the director life insurance office but could not get an appointment for approximately 4 weeks for his account. Patient then had worsening of his symptoms and saw his primary care physician more recently and he was asked to come to the emergency department for further evaluation. Patient was admitted under hospitalist service vascular surgery has seen the patient and plans on angiogram on Sunday. Podiatry has seen the patient as well. Patient denies any fever chills or night sweats. Patient denies any chest pain or shortness of breath. Overnight events reviewed No fever No rash No diarrhea Antibiotics: Ancef IV Vanco IV Lines: Line sites with no e.o infection Past Medical History: reviewed Allergies/Adverse Reactions: Allergies No Known Allergies Allergy (Uncoded 02/15/16 06:07) Objective Vital Signs 04/15/18 14:18 04/15/18 20:00 04/16/18 00:00 Temperature 98.4 F 98.0 F Pulse Rate 100 H 97 H Respiratory Rate 20 20 Blood Pressure 143/76 H 143/84 H Pulse Oximetry 97 96 93 L 04/16/18 04:00 04/16/18 07:45 04/16/18 10:03 Temperature 98.2 F 98.6 F Pulse Rate 91 H 91 H Respiratory Rate 20 20 Blood Pressure 138/72 134/79 Pulse Oximetry 94 L 93 L 96 04/16/18 11:45 Temperature 98.4 F Pulse Rate 104 H Respiratory Rate 20 Blood Pressure 136/75 Pulse Oximetry 93 L Intake & Output 04/15/18 04/16/18 04/16/18 18:59 06:59 18:59 Intake Total 550 / 550 100 / 100 250 / 250 Output Total 375 / 375 Balance 550 / 550 -275 / -275 250 / 250 Weight 68 kg Intake: IV 50 / 50 100 / 100 250 / 250 Vancomycin Inj 1,000 MG In NS 250 / 250 Inj 250 ML @ 250 mls/hr IV.SIG Q24H [facility] Rx#:[id number] Ancef 2 GM Premix Inj 2 gm In 50 / 50 100 / 100 50 ml @ 100 mls/hr IV.SIG Q8H [facility] Rx#:[id number] Oral 500 / 500 Output: Urine 375 / 375 Other: Date of Last Bowel Movement 04/13/18 04/13/18 04/13/18 04/12/18 11:45 Blood - Peripheral Aerobic Blood Culture - Preliminary No growth in 4 days 04/12/18 11:45 Blood - Peripheral Anaerobic Blood Culture - Preliminary No growth in 4 days 04/12/18 11:30 Blood - Peripheral Aerobic Blood Culture - Preliminary No growth in 4 days 04/12/18 11:30 Blood - Peripheral Anaerobic Blood Culture - Preliminary No growth in 4 days 04/14/18 13:00 Clean Catch Urine Urine Culture - Final Enterococcus faecalis Lab - Chemistry Results 04/16/18 07:55 Creatinine 1.19 Estimated GFR 58 L Imaging: ITS Impressions Extremity Arterial Study 04/12/18 00:00 CONCLUSION: Severely compromised runoff on the left. Satisfactory ankle index however moderate compromise of pedal circulation on the right Foot X-Ray 04/12/18 11:23 CONCLUSION: Osteopenia. No acute abnormality. Physical Exam: GENERAL: Well-nourished well-developed, not in acute distress SKIN: Cool and dry, no generalized rash HEAD: Atraumatic. Normocephalic. No temporal or scalp tenderness. EYES: Pupils equal round and reactive. Scleral icterus. No injection or drainage. No petechia ENT: Nothing abnormal detected NECK: Trachea midline. Supple, nontender, no meningeal signs. CARDIOVASCULAR: HS audible. RESPIRATORY: Clear to auscultation bilaterally. GASTROINTESTINAL: Abdomen soft nontender. MUSCULOSKELETAL: Left foot with erythema on the dorsal aspect of the foot. Second and third toe with blackening noted. NEUROLOGICAL: Alert oriented 3. Nonfocal. Psych cooperative IV line sites ok. Assessment and Plan - Plan Left foot cellulitis Left second and third toe with gangrene possible underlying osteomyelitis. 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 Active smoker. Counseled the patient. Recommendations: Continue cefazolin IV Continue vancomycin IV target trough 15-20 Podiatry consult awaited for amputation of gangrenous toes now that vascular supply reestablished. Follow cultures Follow clinical course dw pt felipa Small
[2018-04-16] MEDS ORDERED: Pharmacy Ordered Lab Info OTHER ONE (13:45)
[2018-04-16] MEDS: Vancomycin Inj 1,000 MG in Sodium Chlor 0.9% Inj 250 ML IV.SIG SCH (15:38)
[2018-04-16] MEDS: Enoxaparin Inj 40 MG/0.4 ML Syringe SQ SCH (15:49)
--- NOTE | 2018-04-16 17:37 | P.CONPOD ---
History of Present Illness Service: Foot and ankle surgery/podiatry Consult date: 04/16/18 Reason for Consult: Left gangrene to second and third digits, left foot infection Primary Care Provider: Flaco Horowitz DO Chief Complaint: Left foot pain, color change. History of Present Illness: Podiatry consulted for this 87-year-old male with history of hypertension, hyperlipidemia, who presented to the emergency department for left leg discoloration and discomfort. Patient denies any nausea vomiting fevers or chills. He was recently revascularized by vascular surgery. Reports pain to left second and third digit. COUNT INCLUDES [facility] - History History Provided By: Patient - Medical History Medical History: Medical History (Last Reviewed 04/12/18 @ 11:29 by Matthew Whalen MD) Bladder cancer Hypertension - Surgical History Surgical History: Surgical History (Last Reviewed 04/12/18 @ 11:29 by Matthew Whalen MD) History of hip surgery S/P wrist surgery - Tobacco History Second Hand Smoke Exposure: No Tobacco Use In Past 30 Days: Yes Smoking Status: Never smoker Tobacco Type: Cigarettes - Alcohol History How Often Do You Have a Drink Containing Alcohol: Never - Substance Use History Substance History: No History of Abuse - Travel History Recent Travel in the [place] Within the Last 8 Weeks: No Recent Travel Out of the Country Within the Last 8 Weeks: No - Immunization History Tetanus Immunization: <5 Years Medications and Allergies Active Medications: Active Medications Acetaminophen (Tylenol) 650 mg PO Q4H PRN PRN Reason: Headache, fever, pain 1-4 Al Hydroxide/Mg Hydroxide (Milk Of Magnvivienne Liq) 30 ml PO Q12H PRN PRN Reason: Mild Constipation Atorvastatin Calcium (Lipitor) 40 mg PO HS [facility] Last Admin: 04/15/18 21:19 Dose: 40 mg Bisacodyl (Dulcolax Supp) 10 mg RECTAL DAILY PRN PRN Reason: SEVERE CONSITIPATION Clopidogrel Bisulfate (Plavix) 75 mg PO DAILY [facility] Last Admin: 04/16/18 08:31 Dose: 75 mg Enoxaparin Sodium (Lovenox Inj) 40 mg SQ Q24H [facility] Last Admin: 04/16/18 15:49 Dose: Not Given Finasteride (Proscar) 5 mg PO DAILY [facility] Last Admin: 04/16/18 08:31 Dose: 5 mg Sodium Chloride (Ns Inj) 500 mls @ 30 mls/hr IV.SIG .Q10H [facility] Cefazolin Sodium/Dextrose (Ancef 2 Gm Premix Inj) 2 gm in 50 mls @ 100 mls/hr IV.SIG Q8H [facility] Last Infusion: 04/16/18 13:41 Dose: Infused Vancomycin HCl 1,000 mg/ (Sodium Chloride) 250 mls @ 250 mls/hr IV.SIG Q24H [facility] Last Admin: 04/16/18 15:38 Dose: 200 mls/hr Lactulose (Lactulose Liq) 30 ml PO DAILY PRN PRN Reason: SEVERE CONSITIPATION Miscellaneous Information ([facility] Ordered Lab Info) 1 each OTHER ONCE ONE Stop: 04/19/18 13:46 Nifedipine (Procardia Xl) 30 mg PO DAILY [facility] Last Admin: 04/16/18 08:30 Dose: 30 mg Ondansetron HCl (Zofran Inj) 4 mg IV.PUSH Q6H PRN PRN Reason: NAUSEA OR VOMITING Pharmacy Profile Note (Vancomycin Consult Pharmacy) 1 each OTHER UNSCH PRN PRN Reason: Pharmacy to dose Sennosides (Senokot) 17.2 mg PO Q12H PRN PRN Reason: Moderate Constipation Sodium Chloride (Ns Flush) 2 ml IV.FLUSH BID [facility] Last Admin: 04/16/18 08:32 Dose: 2 ml Sodium Chloride (Ns Flush) 2 ml IV.FLUSH PRN PRN PRN Reason: FLUSH AFTER USING IV ACCESS Tamsulosin HCl (Flomax) 0.4 mg PO DAILY [facility] Last Admin: 04/16/18 08:30 Dose: 0.4 mg Allergies Allergy/AdvReac Type Severity Reaction Status Date / Time No Known Allergies Allergy Uncoded 02/15/16 06:07 Home Medications Medication Instructions Recorded Confirmed Type dutasteride 0.5 mg PO DAILY 04/12/18 04/12/18 History metoprolol tartrate 50 mg PO DAILY 04/12/18 04/12/18 History pravastatin 20 mg PO DAILY 04/12/18 04/12/18 History tamsulosin 0.4 mg PO DAILY 04/12/18 04/12/18 History Physical Exam Vital signs: Vital Signs 04/15/18 20:00 04/16/18 00:00 04/16/18 04:00 Temperature 98.4 F 98.0 F 98.2 F Pulse Rate 100 H 97 H 91 H Respiratory Rate 20 20 20 Blood Pressure 143/76 H 143/84 H 138/72 Pulse Oximetry 96 93 L 94 L 04/16/18 07:45 04/16/18 10:03 04/16/18 11:45 Temperature 98.6 F 98.4 F Pulse Rate 91 H 104 H Respiratory Rate 20 20 Blood Pressure 134/79 136/75 Pulse Oximetry 93 L 96 93 L 04/16/18 15:40 Temperature 98.7 F Pulse Rate 110 H Respiratory Rate 20 Blood Pressure 163/77 H Pulse Oximetry 94 L Intake & Output 04/15/18 04/16/18 04/16/18 18:59 06:59 18:59 Intake Total 550 / 550 100 / 100 300 / 300 Output Total 375 / 375 Balance 550 / 550 -275 / -275 300 / 300 Weight 68 kg Intake: IV 50 / 50 100 / 100 300 / 300 Vancomycin Inj 1,000 MG In NS 250 / 250 Inj 250 ML @ 250 mls/hr IV.SIG Q24H [facility] Rx#:[id number] Ancef 2 GM Premix Inj 2 gm In 50 / 50 100 / 100 50 / 50 50 ml @ 100 mls/hr IV.SIG Q8H [facility] Rx#:[id number] Oral 500 / 500 Output: Urine 375 / 375 Other: # Voids 2 Date of Last Bowel Movement 04/13/18 04/13/18 04/13/18 # Bowel Movements 1 Narrative: GENERAL: This is a well-nourished, well-developed patient, in no apparent distress. SKIN: Gangrene noted to left second and third digit HEAD: Atraumatic. EYES: Pupils equal round and reactive. ENT: Airway patent. NECK: Trachea midline. RESPIRATORY: Nonlabored breathing. MUSCULOSKELETAL:. Negative Homans sign bilaterally. NEUROLOGICAL: Awake and alert. Normal speech. Lower extremity physical exam: Vascular: Dorsalis pedis 1/4, posterior tibial 2/4. Capillary refill time within normal limits to digits X5 bilateral foot. Edema mildly present to left foot. Neuro: Gross sensation intact to bilateral lower extremity. Pinpoint sensation decreased. No hyperalgesia noted to bilateral lower extremity Dermatology: Ischemia and cyanosis noted to hallux, second and third digit. Gangrene noted to distal aspect of second and third digits. Erythema noted to dorsal midfoot. Blistering noted to dorsal metatarsal heads. Increased warmth to left foot. Musculoskeletal: Tender to palpation to left second and third digits. Results - Labs CBC & Chem 7: 04/12/18 11:30 04/16/18 07:55 Laboratory Results - last 24 hr 04/16/18 04/16/18 07:55 13:30 Creatinine 1.19 Estimated GFR 58 L Vancomycin Trough 10.6 H Microbiology 04/12/18 11:45 Blood - Peripheral Aerobic Blood Culture - Preliminary No growth in 4 days 04/12/18 11:45 Blood - Peripheral Anaerobic Blood Culture - Preliminary No growth in 4 days 04/12/18 11:30 Blood - Peripheral Aerobic Blood Culture - Preliminary No growth in 4 days 04/12/18 11:30 Blood - Peripheral Anaerobic Blood Culture - Preliminary No growth in 4 days 04/14/18 13:00 Clean Catch Urine Urine Culture - Final Enterococcus faecalis Assessment and Plan - Plan 87-year-old male with left foot second and third digit gangrene, left foot infection Patient examined and evaluated all questions answered Betadine with dry sterile dressing to be applied to left foot Discussed second and third digital amputations with patient, patient may need multiple surgeries as primary closure will be difficult due to level of ischemia Will sign out care to Dr. Silva who will evaluate patient tomorrow and plan for surgical intervention
[2018-04-17] MEDS: ceFAZolin 2 GM Premix Inj 2 GM/50 ML PIGGYBACK IV.SIG SCH ×3 (04:58→20:31)
[2018-04-17] MEDS: Finasteride 5 MG Tablet PO SCH (08:36)
--- NOTE | 2018-04-17 09:29 | P.PNIM ---
Subjective Interval history: Follow-up critical limb ischemia with tissue loss/left second and third toe digit gangrene/left foot cellulitis April 17, 2018patient seen and examined, complains of left lower extremity pain otherwise afebrile. Seen by podiatry yesterday and plan for possible amputations of the toes. Physical Exam Vital signs: Vital Signs 04/16/18 10:03 04/16/18 11:45 04/16/18 15:40 Temperature 98.4 F 98.7 F Pulse Rate 104 H 110 H Respiratory Rate 20 20 Blood Pressure 136/75 163/77 H Pulse Oximetry 96 93 L 94 L 04/16/18 20:26 04/16/18 21:21 04/17/18 00:29 Temperature 99.1 F 98.3 F Pulse Rate 97 H 97 H Respiratory Rate 18 18 Blood Pressure 134/66 129/60 Pulse Oximetry 95 98 95 04/17/18 05:56 04/17/18 08:00 04/17/18 08:01 Temperature 98.3 F 97.7 F Pulse Rate 83 85 Respiratory Rate 18 18 16 Blood Pressure 127/65 131/67 Pulse Oximetry 97 96 Intake & Output 04/16/18 04/17/18 04/17/18 18:59 06:59 18:59 Intake Total 550 / 550 50 / 50 50 / 50 Output Total 100 / 100 300 / 300 Balance 450 / 450 -250 / -250 50 / 50 Weight 68.2 kg Intake: IV 550 / 550 50 / 50 50 / 50 Vancomycin Inj 1,000 MG In NS 500 / 500 Inj 250 ML @ 250 mls/hr IV.SIG Q24H [facility] Rx#:[id number] Ancef 2 GM Premix Inj 2 gm In 50 / 50 50 / 50 50 / 50 50 ml @ 100 mls/hr IV.SIG Q8H [facility] Rx#:[id number] Output: Urine 100 / 100 300 / 300 Other: # Voids 2 Date of Last Bowel Movement 04/13/18 04/16/18 # Bowel Movements 1 Narrative: GENERAL: NAD SKIN: Warm and dry. HEAD: Atraumatic. Normocephalic. EYES: Pupils equal and round. No scleral icterus. No injection or drainage. ENT: No nasal bleeding or discharge. Mucous membranes pink and moist. NECK: Trachea midline. No JVD. CARDIOVASCULAR: Regular rate and rhythm. RESPIRATORY: No accessory muscle use. Clear to auscultation. Breath sounds equal bilaterally. GASTROINTESTINAL: Abdomen soft, non-tender, nondistended. Hepatic and splenic margins not palpable. MUSCULOSKELETAL: Left foot with erythema on the dorsal aspect of the foot. Second and third toe with blackening noted. NEUROLOGICAL: Awake and alert. No obvious cranial nerve deficits. Motor grossly within normal limits. Five out of 5 muscle strength in the arms and legs. Normal speech. PSYCHIATRIC: Appropriate mood and affect; insight and judgment normal. Results Labs CBC & Chem 7: 04/12/18 11:30 04/16/18 07:55 Labs: Microbiology 04/12/18 11:45 Blood - Peripheral Aerobic Blood Culture - Preliminary No growth in 4 days 04/12/18 11:45 Blood - Peripheral Anaerobic Blood Culture - Preliminary No growth in 4 days 04/12/18 11:30 Blood - Peripheral Aerobic Blood Culture - Preliminary No growth in 4 days 04/12/18 11:30 Blood - Peripheral Anaerobic Blood Culture - Preliminary No growth in 4 days 04/14/18 13:00 Clean Catch Urine Urine Culture - Final Enterococcus faecalis Assessment and Plan Plan 87-year-old man with Peripheral vascular disease Critical limb ischemia with tissue loss Appreciate input from vascular surgery patient is s/p METERS SUPERINTENDENT and stenting of the left superficial femoral artery/left popliteal artery as well as left posterior tibial artery mechanical thrombectomy 04/15/18 Continue aspirin, Lipitor 40 mg nightly. Consult podiatry as needed Gangrene of left second and third toes of the foot Appreciate input from podiatry who plan for possible amputations Superimposed cellulitis of the left foot Currently on cefazolin 2 g every 8 hours and continue vancomycin. Monitor culture report Appreciate input from ID UTI-group D enterococcus Currently on IV antibiotics from above History of bladder cancer Hyperlipidemia BPH Hypertension Continue dutasteride 0.5 mg p.o. daily, tamsulosin 0.4 mg p.o. daily. Continue Lipitor 40 mg nightly. Continue nifedipine 30 mg daily. Full code. Lovenox. Progress Note: Quality VTE Deep Vein Thrombosis/Pulmonary Embolism Present on Admission: No
[2018-04-17] MEDS: Vancomycin Inj 1,000 MG in Sodium Chlor 0.9% Inj 250 ML IV.SIG SCH (14:55)
[2018-04-17] MEDS: Enoxaparin Inj 40 MG/0.4 ML Syringe SQ SCH (17:28)
--- NOTE | 2018-04-17 23:10 | P.PNPOD ---
Subjective Interval history: PVD Left 2nd and 3rd digit gangrene Seen at bedside this pm with nursing staff Physical Exam Vital signs: Vital Signs 04/17/18 00:29 04/17/18 05:56 04/17/18 08:00 Temperature 98.3 F 98.3 F 97.7 F Pulse Rate 97 H 83 85 Respiratory Rate 18 18 18 Blood Pressure 129/60 127/65 131/67 Pulse Oximetry 95 97 96 04/17/18 08:01 04/17/18 11:30 04/17/18 15:35 Temperature 98.4 F 99.3 F Pulse Rate 86 91 H Respiratory Rate 16 18 18 Blood Pressure 125/69 139/66 Pulse Oximetry 97 95 04/17/18 20:22 Temperature 98.5 F Pulse Rate 103 H Respiratory Rate 20 Blood Pressure 141/67 H Pulse Oximetry 96 Intake & Output 04/17/18 04/17/18 04/18/18 06:59 18:59 06:59 Intake Total 50 / 50 1850 / 1850 Output Total 300 / 300 Balance -250 / -250 1850 / 1850 Weight 68.2 kg Intake: IV 50 / 50 350 / 350 Vancomycin Inj 1,000 MG In NS 250 / 250 Inj 250 ML @ 250 mls/hr IV.SIG Q24H [facility] Rx#:[id number] Ancef 2 GM Premix Inj 2 gm In 50 / 50 100 / 100 50 ml @ 100 mls/hr IV.SIG Q8H [facility] Rx#:[id number] Oral 1500 / 1500 Output: Urine 300 / 300 Other: Date of Last Bowel Movement 04/16/18 04/16/18 # Bowel Movements 1 Narrative: LLE warm to warm Left 2nd and 3rd digit with dry stable gangrene. Medications and Allergies Active Medications: Active Medications Acetaminophen (Tylenol) 650 mg PO Q4H PRN PRN Reason: Headache, fever, pain 1-4 Last Admin: 04/17/18 04:57 Dose: 650 mg Al Hydroxide/Mg Hydroxide (Milk Of Magnesia Liq) 30 ml PO Q12H PRN PRN Reason: Mild Constipation Atorvastatin Calcium (Lipitor) 40 mg PO HS [facility] Last Admin: 04/17/18 20:31 Dose: 40 mg Bisacodyl (Dulcolax Supp) 10 mg RECTAL DAILY PRN PRN Reason: SEVERE CONSITIPATION Clopidogrel Bisulfate (Plavix) 75 mg PO DAILY [facility] Last Admin: 04/17/18 08:36 Dose: 75 mg Enoxaparin Sodium (Lovenox Inj) 40 mg SQ Q24H [facility] Last Admin: 04/17/18 17:28 Dose: Not Given Finasteride (Proscar) 5 mg PO DAILY [facility] Last Admin: 04/17/18 08:36 Dose: 5 mg Sodium Chloride (Ns Inj) 500 mls @ 30 mls/hr IV.SIG .Q10H [facility] Cefazolin Sodium/Dextrose (Ancef 2 Gm Premix Inj) 2 gm in 50 mls @ 100 mls/hr IV.SIG Q8H [facility] Last Admin: 04/17/18 20:31 Dose: 100 mls/hr Vancomycin HCl 1,000 mg/ (Sodium Chloride) 250 mls @ 250 mls/hr IV.SIG Q24H [facility] Last Infusion: 04/17/18 16:23 Dose: Infused Lactulose (Lactulose Liq) 30 ml PO DAILY PRN PRN Reason: SEVERE CONSITIPATION Miscellaneous Information ([facility] Ordered Lab Info) 1 each OTHER ONCE ONE Stop: 04/19/18 13:46 Nifedipine (Procardia Xl) 30 mg PO DAILY [facility] Last Admin: 04/17/18 08:36 Dose: 30 mg Ondansetron HCl (Zofran Inj) 4 mg IV.PUSH Q6H PRN PRN Reason: NAUSEA OR VOMITING Pharmacy Profile Note (Vancomycin Consult Pharmacy) 1 each OTHER UNSCH PRN PRN Reason: Pharmacy to dose Sennosides (Senokot) 17.2 mg PO Q12H PRN PRN Reason: Moderate Constipation Sodium Chloride (Ns Flush) 2 ml IV.FLUSH BID [facility] Last Admin: 04/17/18 20:32 Dose: 2 ml Sodium Chloride (Ns Flush) 2 ml IV.FLUSH PRN PRN PRN Reason: FLUSH AFTER USING IV ACCESS Tamsulosin HCl (Flomax) 0.4 mg PO DAILY [facility] Last Admin: 04/17/18 08:36 Dose: 0.4 mg Allergies Allergy/AdvReac Type Severity Reaction Status Date / Time No Known Allergies Allergy Uncoded 02/15/16 06:07 Home Medications Medication Instructions Recorded Confirmed Type dutasteride 0.5 mg PO DAILY 04/12/18 04/12/18 History metoprolol tartrate 50 mg PO DAILY 04/12/18 04/12/18 History pravastatin 20 mg PO DAILY 04/12/18 04/12/18 History tamsulosin 0.4 mg PO DAILY 04/12/18 04/12/18 History Results - Labs CBC & Chem 7: 04/12/18 11:30 04/16/18 07:55 Microbiology 04/12/18 11:45 Blood - Peripheral Aerobic Blood Culture - Final No growth in 5 days 04/12/18 11:45 Blood - Peripheral Anaerobic Blood Culture - Final No growth in 5 days 04/12/18 11:30 Blood - Peripheral Aerobic Blood Culture - Final No growth in 5 days 04/12/18 11:30 Blood - Peripheral Anaerobic Blood Culture - Final No growth in 5 days Assessment and Plan - Assessment (1) PVD (peripheral vascular disease) Code(s): I73.9 - Peripheral vascular disease, unspecified Status: Acute (2) Gangrene of toe of left foot Code(s): I96 - Gangrene, not elsewhere classified Status: Acute - Plan NPO at midnight on 04/17/18 Consent for left foot 2nd and 3rd digit gangrene Medical Clearance per Dr Huang. To the OR on 04/18/18 at 1300
[2018-04-18] MEDS: ceFAZolin 2 GM Premix Inj 2 GM/50 ML PIGGYBACK IV.SIG SCH ×3 (04:42→20:55)
[2018-04-18 05:52] LABS: Baso # (Auto) 0.1 th/mm3 (0.0-0.2); Baso % (Auto) 0.7 % (0.0-2.0); Eos # (Auto) 0.6 th/mm3 (0.0-0.4); Eos % (Auto) 4.2 % (0.0-4.0); Hematocrit 34.8 % (39.0-51.0); Lymph # (Auto) 1.9 th/mm3 (1.0-4.8); Lymph % (Auto) 13.7 % (9.0-44.0); Mean Corpuscular HGB Conc 34.4 % (32.0-36.0); Mean Corpuscular Volume 90.3 fL (80.0-100.0); Mean Platelet Volume 7.7 fL (7.0-11.0); Mono # (Auto) 1.4 th/mm3 (0.0-0.9); Mono % (Auto) 9.8 % (0.0-8.0); Neut # (Auto) 10.2 th/mm3 (1.8-7.7); Neut % (Auto) 71.6 % (16.0-70.0); Platelet Count 462 th/mm3 (150-450); Red Blood Count 3.86 mil/mm3 (4.50-5.90); Red Cell Distribution Width 12.7 % (11.6-17.2); White Blood Count 14.2 th/mm3 (4.0-11.0)
[2018-04-18 06:24] LABS: Alanine Aminotransferase 11 U/L (12-78); Aspartate Aminotransferase 19 U/L (15-37); Blood Urea Nitrogen 20 mg/dL (7-18); Calcium 8.2 mg/dL (8.5-10.1); Chloride 108 meq/L (98-107); Glomerular Filtration Rate 63 mL/min (>89); Glucose,Random 95 mg/dL (74-106); Potassium 3.8 meq/L (3.5-5.1); Sodium 141 meq/L (136-145)
[2018-04-18 06:27] LABS: Albumin 2.8 g/dL (3.4-5.0); Alkaline Phosphatase 77 U/L (45-117); Anion Gap 10 meq/L (5-15); Carbon Dioxide 22.9 meq/L (21.0-32.0)
[2018-04-18] MEDS: Finasteride 5 MG Tablet PO SCH (09:20)
--- NOTE | 2018-04-18 10:02 | P.PNIM ---
Subjective Interval history: Follow-up left foot cellulitis/left second and third toe digit gangrene/peripheral vascular disease April 18, 2018patient seen and examined, currently n.p.o. pending amputation of left second and third toes gangrene. Afebrile Physical Exam Vital signs: Vital Signs 04/17/18 11:30 04/17/18 15:35 04/17/18 20:22 Temperature 98.4 F 99.3 F 98.5 F Pulse Rate 86 91 H 103 H Respiratory Rate 18 18 20 Blood Pressure 125/69 139/66 141/67 H Pulse Oximetry 97 95 96 04/18/18 00:25 04/18/18 04:42 04/18/18 08:28 Temperature 98.2 F 97.6 F 98.3 F Pulse Rate 91 H 86 84 Respiratory Rate 20 20 20 Blood Pressure 132/58 L 124/58 L 131/70 Pulse Oximetry 95 95 94 L Intake & Output 04/17/18 04/18/18 04/18/18 18:59 06:59 18:59 Intake Total 1850 / 1850 100 / 100 Output Total 425 / 425 Balance 1850 / 1850 -325 / -325 Weight 68.5 kg Intake: IV 350 / 350 100 / 100 Vancomycin Inj 1,000 MG In NS 250 / 250 Inj 250 ML @ 250 mls/hr IV.SIG Q24H [facility] Rx#:[id number] Ancef 2 GM Premix Inj 2 gm In 100 / 100 100 / 100 50 ml @ 100 mls/hr IV.SIG Q8H [facility] Rx#:[id number] Oral 1500 / 1500 Output: Urine 425 / 425 Other: Date of Last Bowel Movement 04/16/18 04/17/18 # Bowel Movements 1 Narrative: GENERAL: NAD SKIN: Warm and dry. HEAD: Atraumatic. Normocephalic. EYES: Pupils equal and round. No scleral icterus. No injection or drainage. ENT: No nasal bleeding or discharge. Mucous membranes pink and moist. NECK: Trachea midline. No JVD. CARDIOVASCULAR: Regular rate and rhythm. RESPIRATORY: No accessory muscle use. Clear to auscultation. Breath sounds equal bilaterally. GASTROINTESTINAL: Abdomen soft, non-tender, nondistended. Hepatic and splenic margins not palpable. MUSCULOSKELETAL: Left foot with erythema on the dorsal aspect of the foot. Second and third toe with blackening noted. NEUROLOGICAL: Awake and alert. No obvious cranial nerve deficits. Motor grossly within normal limits. Five out of 5 muscle strength in the arms and legs. Normal speech. PSYCHIATRIC: Appropriate mood and affect; insight and judgment normal. Results Labs CBC & Chem 7: 04/18/18 03:59 04/18/18 03:59 Labs: Microbiology 04/12/18 11:45 Blood - Peripheral Aerobic Blood Culture - Final No growth in 5 days 04/12/18 11:45 Blood - Peripheral Anaerobic Blood Culture - Final No growth in 5 days 04/12/18 11:30 Blood - Peripheral Aerobic Blood Culture - Final No growth in 5 days 04/12/18 11:30 Blood - Peripheral Anaerobic Blood Culture - Final No growth in 5 days Assessment and Plan (1) PVD (peripheral vascular disease): Code(s): I73.9 - Peripheral vascular disease, unspecified Status: Acute (2) Gangrene of toe of left foot: Code(s): I96 - Gangrene, not elsewhere classified Status: Acute Plan 87-year-old man with Peripheral vascular disease Critical limb ischemia with tissue loss Appreciate input from vascular surgery 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 Consult podiatry as needed Gangrene of left second and third toes of the foot Appreciate input from podiatry who plan for possible amputations today April 18, 2018 Patient is medically clear for surgical procedure by medicine Superimposed cellulitis of the left foot Currently on cefazolin 2 g every 8 hours and continue vancomycin. Monitor culture report Appreciate input from ID UTI-group D enterococcus Currently on IV antibiotics from above History of bladder cancer Hyperlipidemia BPH Hypertension Continue dutasteride 0.5 mg p.o. daily, tamsulosin 0.4 mg p.o. daily. Continue Lipitor 40 mg nightly. Continue nifedipine 30 mg daily. Full code. Lovenox. Progress Note: Quality VTE Deep Vein Thrombosis/Pulmonary Embolism Present on Admission: No
[2018-04-18] MEDS: Vancomycin Inj 1,000 MG in Sodium Chlor 0.9% Inj 250 ML IV.SIG SCH (13:51)
[2018-04-18] MEDS: Enoxaparin Inj 40 MG/0.4 ML Syringe SQ SCH (14:31)
[2018-04-18] MEDS ORDERED: Metoprolol Tartrate 25 MG Tablet PO ONE (15:57)
[2018-04-18] MEDS ORDERED: Chlorhexidine Gluconate 2% 1 Pack (2 Cloths) TOPICAL ONE (15:57)
[2018-04-18] MEDS ORDERED: Sodium Chlor 0.9% Inj 500 ML IV.SIG SCH (16:00)
[2018-04-18] MEDS ORDERED: fentaNYL Citrate Inj 250 MCG/5 ML Ampul ONE (16:00)
[2018-04-18] MEDS ORDERED: Bupivacaine 0.5% Inj 50 ML MDV Vial ONE (16:12)
[2018-04-18] MEDS ORDERED: Lidocaine PF 2% Inj 10 ML Ampul ONE (16:12)
[2018-04-18] MEDS ORDERED: Lidocaine 1% Inj 50 ML Vial ONE (16:17)
[2018-04-18] MEDS ORDERED: Lidocaine 2% Inj 50 ML Vial ONE (16:18)
[2018-04-18] MEDS ORDERED: Lidocaine PF 1% Inj 5 ML Syringe INFILTRATN ONE (16:32)
[2018-04-18] MEDS ORDERED: Misc Info for Pharmacy OTHER STA (17:15)
[2018-04-18] MEDS ORDERED: Naloxone Inj 0.4 MG/ML Vial IV.PUSH PRN (17:15)
[2018-04-18] MEDS ORDERED: Bisacodyl 10 MG Supp RECTAL PRN (17:15)
[2018-04-18] MEDS ORDERED: Promethazine 25 MG Supp RECTAL PRN (17:15)
--- NOTE | 2018-04-18 17:19 | P.BOP ---
- Preoperative Diagnosis (1) PVD (peripheral vascular disease) (2) Gangrene of toe of left foot - Postoperative Diagnosis (1) Cellulitis of foot, left (2) PVD (peripheral vascular disease) (3) Gangrene of toe of left foot Date of procedure: 04/18/18 Procedure: 1) Left 2nd digit amputation 2) left 3rd digit amputation Anesthesia: MAC Surgeon: Alisson Silva DPM Estimated blood loss (mL): 5 Tourniquet time (min): 0 (Left calf applied but never inflated.) Pathology: none sent Condition: stable
--- NOTE | 2018-04-18 18:27 | XR ---
EXAM DATE: 04/18/2018 6:24 PM EST AGE/SEX: 87 years / Male INDICATIONS: Post op left foot. CLINICAL DATA: This is the patient's subsequent encounter. Patient reports that signs and symptoms h ave been present for 1 week and indicates a pain score of 0/10. MEDICAL/SURGICAL HISTORY: Hypertension. None. COMPARISON: [facility] [place] 3V, 04/12/2018. . FINDINGS: Interval amputation of the second and third toes. Diffuse osteopenia. Osseous structures are otherwis e intact. No significant erosive bony change. No radiopaque foreign bodies. CONCLUSION: 1. Status post second and third toe amputation, as above. Electronically signed by: Adithya Suarez MD Board Certified Radiologist 04/18/2018 6:25 PM EST
[2018-04-18] MEDS ORDERED: Senna/Docusate Sodium 8.6/50 MG Tablet PO SCH (21:00)
--- NOTE | 2018-04-18 23:59 | MP ---
cc: Alisson Silva DPM DATE OF OPERATION: 04/18/2018 PREOPERATIVE DIAGNOSIS: Left second and third digit dry stable gangrene. POSTOPERATIVE DIAGNOSIS: Left second and third digit dry stable gangrene. PROCEDURES PERFORMED: 1. Left second digit amputation presumed. 2. Left third digit amputation. ANESTHESIOLOGIST: Dr. Carter. ANESTHESIA: MAC. HEMOSTASIS: None. Left ankle tourniquet was applied, but never inflated. ESTIMATED BLOOD LOSS: Less than 15 mL. MATERIALS: 2-0 Vicryl and 3-0 nylon. INJECTABLES: Postoperatively 10 mL of 0.5% Marcaine plain. BRIEF HISTORY: The patient is an 87-year-old male who has a history of PVD, undergone revascularization, and presented with dry stable gangrene. After AVAPS was carried out, vascular is comfortable moving forward with amputation. Risks, benefits, pros, and cons were discussed. The patient consents to surgical intervention. No guarantees were given or implied. DESCRIPTION OF PROCEDURE IN DETAIL: The patient was brought in the room and placed on the table in supine position. After MAC anesthesia was administered, a timeout was called. The foot was prepped, scrubbed, and draped sterilely in the usual sterile aseptic manner. Tourniquet was never inflated throughout the procedure. Attention was then directed to the left foot where a made over the second and third MP joint as well as plantarly. The second and third digits were disarticulated, passed off the field. A culture was taken at the second and third MP joint and passed off the field. The incision was copiously irrigated with normal sterile saline and bulb syringe. Healthy bleeding was noted. There is no purulent drainage noted. Skin was friable proximal to the amputation site. The incision was closed in layers with 2-0 Vicryl and 3-0 nylon. Dry sterile dressings were applied using Adaptic, 4 x 4s, Vahid, ABD, and a light Rodrick wrap. The patient tolerated the procedure well. The patient transferred back to recovery , after which he will be discharged to the floor. Again, he will be followed appropriately while in the hospital. Alisson Silva DPM SR/eb/do , 10:24 PM , 10:31 PM
[2018-04-19] MEDS: ceFAZolin 2 GM Premix Inj 2 GM/50 ML PIGGYBACK IV.SIG SCH ×2 (05:35→13:06)
[2018-04-19] MEDS: Finasteride 5 MG Tablet PO SCH (10:17)
--- NOTE | 2018-04-19 10:54 | P.PNIM ---
Subjective Interval history: Follow-up left second and third toe gangrene status post amputations/peripheral vascular disease/left foot cellulitis April 19, 2018patient seen and examined, he is status post left second and third 2 amputation. Denies any significant pain. Currently afebrile. Physical Exam Vital signs: Vital Signs 04/18/18 11:37 04/18/18 17:20 04/18/18 17:30 Temperature 98.4 F 97.6 F Pulse Rate 94 H 75 78 Respiratory Rate 20 20 18 Blood Pressure 133/73 108/60 116/62 Pulse Oximetry 96 100 100 04/18/18 17:45 04/18/18 18:00 04/18/18 20:00 Temperature 97.6 F 97.9 F Pulse Rate 77 76 104 H Respiratory Rate 16 16 18 Blood Pressure 134/68 140/83 140/69 Pulse Oximetry 96 96 95 04/19/18 00:00 04/19/18 04:42 04/19/18 07:25 Temperature 97.9 F 97.6 F 99.6 F Pulse Rate 93 H 94 H 86 Respiratory Rate 18 20 18 Blood Pressure 135/74 146/67 H 129/64 Pulse Oximetry 95 95 96 04/19/18 09:46 Temperature Pulse Rate Respiratory Rate Blood Pressure Pulse Oximetry 96 Intake & Output 04/18/18 04/19/18 04/19/18 18:59 06:59 18:59 Intake Total 300 / 300 100 / 100 Output Total 1000 / 1000 400 / 400 Balance 300 / 300 -900 / -900 -400 / -400 Weight 66.9 kg Intake: IV 300 / 300 100 / 100 LR 1000 mL Inj 1,000 ML @ 30 0 / 0 mls/hr IV.SIG .Q24H [facility] Rx#: [id number] Vancomycin Inj 1,000 MG In NS 250 / 250 Inj 250 ML @ 250 mls/hr IV.SIG Q24H [facility] Rx#:[id number] Ancef 2 GM Premix Inj 2 gm In 50 / 50 100 / 100 50 ml @ 100 mls/hr IV.SIG Q8H [facility] Rx#:[id number] Output: Urine 1000 / 1000 400 / 400 Other: Date of Last Bowel Movement 04/17/18 04/18/18 Narrative: GENERAL: NAD SKIN: Warm and dry. HEAD: Atraumatic. Normocephalic. EYES: Pupils equal and round. No scleral icterus. No injection or drainage. ENT: No nasal bleeding or discharge. Mucous membranes pink and moist. NECK: Trachea midline. No JVD. CARDIOVASCULAR: Regular rate and rhythm. RESPIRATORY: No accessory muscle use. Clear to auscultation. Breath sounds equal bilaterally. GASTROINTESTINAL: Abdomen soft, non-tender, nondistended. Hepatic and splenic margins not palpable. MUSCULOSKELETAL: Dressing over left foot NEUROLOGICAL: Awake and alert. No obvious cranial nerve deficits. Motor grossly within normal limits. Five out of 5 muscle strength in the arms and legs. Normal speech. PSYCHIATRIC: Appropriate mood and affect; insight and judgment normal. Results Labs CBC & Chem 7: 04/18/18 03:59 04/18/18 03:59 Imaging Imaging: Impressions Foot X-Ray 04/18/18 00:00 CONCLUSION: 1. Status post second and third toe amputation, as above. 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 Monitor culture report Appreciate input from ID UTI-group D enterococcus Currently on IV antibiotics from above History of bladder cancer Hyperlipidemia BPH Hypertension Continue dutasteride 0.5 mg p.o. daily, tamsulosin 0.4 mg p.o. daily. Continue Lipitor 40 mg nightly. Continue nifedipine 30 mg daily. Full code. Lovenox. Progress Note: Quality VTE Deep Vein Thrombosis/Pulmonary Embolism Present on Admission: No
[2018-04-19] MEDS ORDERED: Pharmacy Ordered Lab Info OTHER ONE (13:45)
[2018-04-19] MEDS: Vancomycin Inj 1,000 MG in Sodium Chlor 0.9% Inj 250 ML IV.SIG SCH (15:40)
--- NOTE | 2018-04-19 16:13 | P.PNPOD ---
Subjective Interval history: POD # 1 s/p left 2nd and 3rd digit amputation Dr Silva Doing well and AAO x 3 Physical Exam Vital signs: Vital Signs 04/18/18 17:20 04/18/18 17:30 04/18/18 17:45 Temperature 97.6 F Pulse Rate 75 78 77 Respiratory Rate 20 18 16 Blood Pressure 108/60 116/62 134/68 Pulse Oximetry 100 100 96 04/18/18 18:00 04/18/18 20:00 04/19/18 00:00 Temperature 97.6 F 97.9 F 97.9 F Pulse Rate 76 104 H 93 H Respiratory Rate 16 18 18 Blood Pressure 140/83 140/69 135/74 Pulse Oximetry 96 95 95 04/19/18 04:42 04/19/18 07:25 04/19/18 09:46 Temperature 97.6 F 99.6 F Pulse Rate 94 H 86 Respiratory Rate 20 18 Blood Pressure 146/67 H 129/64 Pulse Oximetry 95 96 96 04/19/18 11:05 Temperature 98.3 F Pulse Rate 87 Respiratory Rate 20 Blood Pressure 134/68 Pulse Oximetry 94 L Intake & Output 04/18/18 04/19/18 04/19/18 18:59 06:59 18:59 Intake Total 300 / 300 100 / 100 50 / 50 Output Total 1000 / 1000 775 / 775 Balance 300 / 300 -900 / -900 -725 / -725 Weight 66.9 kg Intake: IV 300 / 300 100 / 100 50 / 50 LR 1000 mL Inj 1,000 ML @ 30 0 / 0 mls/hr IV.SIG .Q24H [facility] Rx#: [id number] Vancomycin Inj 1,000 MG In NS 250 / 250 Inj 250 ML @ 250 mls/hr IV.SIG Q24H [facility] Rx#:[id number] Ancef 2 GM Premix Inj 2 gm In 50 / 50 100 / 100 50 / 50 50 ml @ 100 mls/hr IV.SIG Q8H [facility] Rx#:[id number] Output: Urine 1000 / 1000 775 / 775 Other: Date of Last Bowel Movement 04/17/18 04/18/18 Narrative: LLE Intact dressing and no strikethrough. NVS unchanged. Medications and Allergies Active Medications: Active Medications Acetaminophen (Tylenol) 650 mg PO Q4H PRN PRN Reason: Headache, fever, pain 1-4 Last Admin: 04/17/18 04:57 Dose: 650 mg Al Hydroxide/Mg Hydroxide (Milk Of Magnesia Liq) 30 ml PO Q12H PRN PRN Reason: Mild Constipation Atorvastatin Calcium (Lipitor) 40 mg PO HS [facility] Last Admin: 04/18/18 20:55 Dose: 40 mg Bisacodyl (Dulcolax Supp) 10 mg RECTAL DAILY PRN PRN Reason: SEVERE CONSITIPATION Clopidogrel Bisulfate (Plavix) 75 mg PO DAILY [facility] Last Admin: 04/19/18 10:16 Dose: 75 mg Enoxaparin Sodium (Lovenox Inj) 40 mg SQ Q24H [facility] Last Admin: 04/18/18 14:31 Dose: Not Given Finasteride (Proscar) 5 mg PO DAILY [facility] Last Admin: 04/19/18 10:17 Dose: 5 mg Sodium Chloride (Ns Inj) 500 mls @ 30 mls/hr IV.SIG .Q10H [facility] Last Admin: 04/18/18 17:16 Dose: Not Given Cefepime HCl 2,000 mg/ Sodium (Chloride) 100 mls @ 200 mls/hr IV.SIG Q8H [facility] Vancomycin HCl 1,000 mg/ (Sodium Chloride) 250 mls @ 250 mls/hr IV.SIG Q24H [facility] Last Admin: 04/19/18 15:40 Dose: 250 mls/hr Lactulose (Lactulose Liq) 30 ml PO DAILY PRN PRN Reason: SEVERE CONSITIPATION Miscellaneous Information (Misc Nursing Information) 1 each OTHER UNSCH PRN PRN Reason: SEE LABEL COMMENTS Stop: 04/19/18 17:52 Naloxone HCl (Narcan Inj) 0.4 mg IV.PUSH UNSCH PRN PRN Reason: SEE LABEL COMMENTS Nifedipine (Procardia Xl) 30 mg PO DAILY [facility] Last Admin: 04/19/18 10:17 Dose: 30 mg Ondansetron HCl (Zofran Odt) 4 mg PO Q6H PRN PRN Reason: NAUSEA OR VOMITING Ondansetron HCl (Zofran Inj) 4 mg IV.PUSH Q6H PRN PRN Reason: NAUSEA OR VOMITING Pharmacy Profile Note (Vancomycin Consult Pharmacy) 1 each OTHER UNSCH PRN PRN Reason: Pharmacy to dose Promethazine HCl (Phenergan) 25 mg PO Q6H PRN PRN Reason: NAUSEA OR VOMITING Promethazine HCl (Phenergan Supp) 25 mg RECTAL Q6H PRN PRN Reason: NAUSEA OR VOMITING Sennosides (Senokot) 17.2 mg PO Q12H PRN PRN Reason: Moderate Constipation Sodium Chloride (Ns Flush) 2 ml IV.FLUSH BID [facility] Last Admin: 04/19/18 10:17 Dose: 2 ml Sodium Chloride (Ns Flush) 2 ml IV.FLUSH PRN PRN PRN Reason: FLUSH AFTER USING IV ACCESS Tamsulosin HCl (Flomax) 0.4 mg PO DAILY [facility] Last Admin: 04/19/18 10:17 Dose: 0.4 mg Allergies Allergy/AdvReac Type Severity Reaction Status Date / Time No Known Allergies Allergy Uncoded 02/15/16 06:07 Home Medications Medication Instructions Recorded Confirmed Type dutasteride 0.5 mg PO DAILY 04/12/18 04/12/18 History metoprolol tartrate 50 mg PO DAILY 04/12/18 04/12/18 History pravastatin 20 mg PO DAILY 04/12/18 04/12/18 History tamsulosin 0.4 mg PO DAILY 04/12/18 04/12/18 History Results - Labs CBC & Chem 7: 04/18/18 03:59 04/18/18 03:59 Laboratory Results - last 24 hr 04/19/18 15:15 Vancomycin Trough 8.4 Microbiology 04/18/18 17:13 Other Acid Fast Bacilli Smear - Final No acid fast bacilli seen 04/18/18 17:13 Wound - Foot Gram Stain - Final 04/18/18 17:13 Wound - Foot Wound Culture - Preliminary gram negative rods 04/18/18 17:13 Other Fungal Smear - Final No fungal elements seen - Imaging Impressions Foot X-Ray 04/18/18 00:00 CONCLUSION: 1. Status post second and third toe amputation, as above. Assessment and Plan - Assessment (1) PVD (peripheral vascular disease) Code(s): I73.9 - Peripheral vascular disease, unspecified Status: Acute (2) Gangrene of toe of left foot Code(s): I96 - Gangrene, not elsewhere classified Status: Acute - Plan D/w ID, + G -ve rods. Abx per ID f/u with Dr Silva in 1 week OK to WB with post op shoe, left. Keep dressing clean and intact until f/u OK to d/c per Podiatry with abx per ID
[2018-04-19] MEDS: Enoxaparin Inj 40 MG/0.4 ML Syringe SQ SCH (16:33)
--- NOTE | 2018-04-19 18:55 | P.PNID ---
Subjective Remarks: Mr. Thompson is a 87-year-old male with a past medical history of hypertension, hyperlipidemia who presents to the emergency department on April 12, 2018 due to left leg discomfort as well as change in the color of his second and third toe of the left foot. Patient reports that he initially noticed symptoms on the ball of the foot on the left side. 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 Patient then had worsening of his symptoms and saw his primary care physician more recently and he was asked to come to the emergency department for further evaluation. Patient was admitted under hospitalist service vascular surgery has seen the patient and plans on angiogram on Sunday. Podiatry has seen the patient as well. Patient denies any fever chills or night sweats. Patient denies any chest pain or shortness of breath. Overnight events reviewed No fever No rash No diarrhea s/p amputation of toes Intra-Op path pending Antibiotics: Ancef IV Vanco IV Lines: Line sites with no e.o infection Past Medical History: reviewed Allergies/Adverse Reactions: Allergies No Known Allergies Allergy (Uncoded 02/15/16 06:07) Objective Vital Signs 04/18/18 20:00 04/19/18 00:00 04/19/18 04:42 Temperature 97.9 F 97.9 F 97.6 F Pulse Rate 104 H 93 H 94 H Respiratory Rate 18 18 20 Blood Pressure 140/69 135/74 146/67 H Pulse Oximetry 95 95 95 04/19/18 07:25 04/19/18 09:46 04/19/18 11:05 Temperature 99.6 F 98.3 F Pulse Rate 86 87 Respiratory Rate 18 20 Blood Pressure 129/64 134/68 Pulse Oximetry 96 96 94 L 04/19/18 15:20 Temperature 98.4 F Pulse Rate 90 Respiratory Rate 20 Blood Pressure 134/78 Pulse Oximetry 93 L Intake & Output 04/18/18 04/19/18 04/19/18 18:59 06:59 18:59 Intake Total 300 / 300 100 / 100 300 / 300 Output Total 1000 / 1000 1050 / 1050 Balance 300 / 300 -900 / -900 -750 / -750 Weight 66.9 kg Intake: IV 300 / 300 100 / 100 300 / 300 LR 1000 mL Inj 1,000 ML @ 30 0 / 0 mls/hr IV.SIG .Q24H [facility] Rx#: [id number] Vancomycin Inj 1,000 MG In NS 250 / 250 250 / 250 Inj 250 ML @ 250 mls/hr IV.SIG Q24H [facility] Rx#:[id number] Ancef 2 GM Premix Inj 2 gm In 50 / 50 100 / 100 50 / 50 50 ml @ 100 mls/hr IV.SIG Q8H [facility] Rx#:[id number] Output: Urine 1000 / 1000 1050 / 1050 Other: Date of Last Bowel Movement 04/17/18 04/18/18 04/18/18 17:13 Other Acid Fast Bacilli Smear - Final No acid fast bacilli seen 04/18/18 17:13 Other Mycobacterial Culture - Pending 04/18/18 17:13 Wound - Foot Gram Stain - Final 04/18/18 17:13 Wound - Foot Wound Culture - Preliminary gram negative rods 04/18/18 17:13 Other Fungal Smear - Final No fungal elements seen 04/18/18 17:13 Other Fungal Culture - Pending 04/12/18 11:45 Blood - Peripheral Aerobic Blood Culture - Final No growth in 5 days 04/12/18 11:45 Blood - Peripheral Anaerobic Blood Culture - Final No growth in 5 days 04/12/18 11:30 Blood - Peripheral Aerobic Blood Culture - Final No growth in 5 days 04/12/18 11:30 Blood - Peripheral Anaerobic Blood Culture - Final No growth in 5 days Lab - Hematology Results 04/18/18 03:59 WBC 14.2 H RBC 3.86 L Hgb 12.0 L Hct 34.8 L MCV 90.3 MCH 31.0 MCHC 34.4 RDW 12.7 Plt Count 462 H MPV 7.7 Neut % (Auto) 71.6 H Lymph % (Auto) 13.7 Dillon % (Auto) 9.8 H Eos % (Auto) 4.2 H Baso % (Auto) 0.7 Neut # (Auto) 10.2 H Lymph # (Auto) 1.9 Dillon # (Auto) 1.4 H Eos # (Auto) 0.6 H Baso # (Auto) 0.1 WBC Differential . Differential Comment Auto diff final Lab - Chemistry Results 04/18/18 03:59 Sodium 141 Potassium 3.8 Chloride 108 H Carbon Dioxide 22.9 Anion Gap 10 BUN 20 H Creatinine 1.10 Estimated GFR 63 L Random Glucose 95 Calcium 8.2 L Total Bilirubin 0.4 AST 19 ALT 11 L Alkaline Phosphatase 77 Total Protein 7.0 D Albumin 2.8 L Imaging: ITS Impressions Extremity Arterial Study 04/12/18 00:00 CONCLUSION: Severely compromised runoff on the left. Satisfactory ankle index however moderate compromise of pedal circulation on the right Foot X-Ray 04/18/18 00:00 CONCLUSION: 1. Status post second and third toe amputation, as above. Physical Exam: GENERAL: Well-nourished well-developed, not in acute distress SKIN: Cool and dry, no generalized rash HEAD: Atraumatic. Normocephalic. No temporal or scalp tenderness. EYES: Pupils equal round and reactive. Scleral icterus. No injection or drainage. No petechia ENT: Nothing abnormal detected NECK: Trachea midline. Supple, nontender, no meningeal signs. CARDIOVASCULAR: HS audible. RESPIRATORY: Clear to auscultation bilaterally. GASTROINTESTINAL: Abdomen soft nontender. MUSCULOSKELETAL: Left foot with erythema on the dorsal aspect of the foot. Second and third toe with blackening noted. NEUROLOGICAL: Alert oriented 3. Nonfocal. Psych cooperative IV line sites ok. Assessment and Plan - Plan Left foot cellulitis Gram-negative rods in wound cultures. Left second and third toe with gangrene possible underlying osteomyelitis. 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 Active smoker. Counseled the patient. Recommendations: Discontinue cefazolin IV Start cefepime IV Continue vancomycin IV target trough 15-20. If no MRSA on Intra-Op cultures okay to discontinue vancomycin IV Discussed with Dr. Silva await Intra-Op cultures to decide IV versus oral antibiotics Follow cultures Follow clinical course dw pt We will follow next on Sunday when pathology results available. Dr. Sheehan available as needed over the weekend if any new clinical issues.
[2018-04-20 07:03] LABS: Baso # (Auto) 0.1 th/mm3 (0.0-0.2); Baso % (Auto) 0.5 % (0.0-2.0); Eos # (Auto) 0.4 th/mm3 (0.0-0.4); Eos % (Auto) 2.6 % (0.0-4.0); Hematocrit 35.5 % (39.0-51.0); Hemoglobin 12.3 gm/dL (13.0-17.0); Lymph # (Auto) 1.8 th/mm3 (1.0-4.8); Lymph % (Auto) 13.2 % (9.0-44.0); Mean Corpuscular HGB Conc 34.6 % (32.0-36.0); Mean Corpuscular Volume 89.8 fL (80.0-100.0); Mean Platelet Volume 7.6 fL (7.0-11.0); Mono # (Auto) 1.5 th/mm3 (0.0-0.9); Mono % (Auto) 10.9 % (0.0-8.0); Neut # (Auto) 10.1 th/mm3 (1.8-7.7); Neut % (Auto) 72.8 % (16.0-70.0); Platelet Count 515 th/mm3 (150-450); Red Blood Count 3.95 mil/mm3 (4.50-5.90); Red Cell Distribution Width 12.9 % (11.6-17.2); White Blood Count 13.9 th/mm3 (4.0-11.0)
[2018-04-20 07:33] LABS: Albumin 2.8 g/dL (3.4-5.0); Anion Gap 9 meq/L (5-15); Aspartate Aminotransferase 20 U/L (15-37); Blood Urea Nitrogen 19 mg/dL (7-18); Calcium 8.6 mg/dL (8.5-10.1); Carbon Dioxide 24.4 meq/L (21.0-32.0); Chloride 106 meq/L (98-107); Glomerular Filtration Rate 70 mL/min (>89); Glucose,Random 100 mg/dL (74-106); Potassium 3.9 meq/L (3.5-5.1); Sodium 139 meq/L (136-145)
[2018-04-20 07:36] LABS: Alanine Aminotransferase 12 U/L (12-78); Alkaline Phosphatase 83 U/L (45-117); Total Protein 7.3 g/dL (6.4-8.2)
[2018-04-20] MEDS: Finasteride 5 MG Tablet PO SCH (08:38)
--- NOTE | 2018-04-20 09:41 | P.PNIM ---
Subjective Interval history: Follow-up left second and third 2 gangrene status post amputation/left foot cellulitis/peripheral vascular disease April 20, 2018-patient seen and examined, afebrile, taking p.o. this a.m. without any completion of nausea vomiting. Denies any left lower extremity pain. Physical Exam Vital signs: Vital Signs 04/19/18 09:46 04/19/18 11:05 04/19/18 15:20 Temperature 98.3 F 98.4 F Pulse Rate 87 90 Respiratory Rate 20 20 Blood Pressure 134/68 134/78 Pulse Oximetry 96 94 L 93 L 04/19/18 20:00 04/19/18 22:00 04/20/18 01:45 Temperature 98.8 F 98.0 F Pulse Rate 90 97 H Respiratory Rate 21 17 Blood Pressure 114/56 L 118/58 L Pulse Oximetry 95 93 L 94 L 04/20/18 05:15 04/20/18 07:20 Temperature 98.3 F 98.5 F Pulse Rate 87 88 Respiratory Rate 15 20 Blood Pressure 124/77 143/71 H Pulse Oximetry 96 95 Intake & Output 04/19/18 04/20/18 04/20/18 18:59 06:59 18:59 Intake Total 300 / 300 200 / 200 Output Total 1050 / 1050 1000 / 1000 150 / 150 Balance -750 / -750 -800 / -800 -150 / -150 Weight 66.3 kg Intake: IV 300 / 300 200 / 200 Maxipime Inj 2,000 MG In NS Inj 200 / 200 100 ML @ 200 mls/hr IV.SIG Q8H [facility]ARY[facility] Rx#:[id number] Vancomycin Inj 1,000 MG In NS 250 / 250 Inj 250 ML @ 250 mls/hr IV.SIG Q24H MARYBETH Rx#:[id number] Ancef 2 GM Premix Inj 2 gm In 50 / 50 50 ml @ 100 mls/hr IV.SIG Q8H MARYB[facility] Rx#:[id number] Output: Urine 1050 / 1050 1000 / 1000 150 / 150 Other: Date of Last Bowel Movement 04/18/18 04/19/18 Narrative: GENERAL: NAD SKIN: Warm and dry. HEAD: Atraumatic. Normocephalic. EYES: Pupils equal and round. No scleral icterus. No injection or drainage. ENT: No nasal bleeding or discharge. Mucous membranes pink and moist. NECK: Trachea midline. No JVD. CARDIOVASCULAR: Regular rate and rhythm. RESPIRATORY: No accessory muscle use. Clear to auscultation. Breath sounds equal bilaterally. GASTROINTESTINAL: Abdomen soft, non-tender, nondistended. Hepatic and splenic margins not palpable. MUSCULOSKELETAL: Dressing over left foot NEUROLOGICAL: Awake and alert. No obvious cranial nerve deficits. Motor grossly within normal limits. Five out of 5 muscle strength in the arms and legs. Normal speech. PSYCHIATRIC: Appropriate mood and affect; insight and judgment normal. Results Labs CBC & Chem 7: 04/20/18 05:45 04/20/18 05:45 Labs: Microbiology 04/18/18 17:13 Wound - Foot Gram Stain - Final 04/18/18 17:13 Wound - Foot Wound Culture - Preliminary Pseudomonas aeruginosa gram negative rods 04/18/18 17:13 Other Acid Fast Bacilli Smear - Final No acid fast bacilli seen 04/18/18 17:13 Other Fungal Smear - Final No fungal elements seen Assessment and Plan (1) PVD (peripheral vascular disease): Code(s): I73.9 - Peripheral vascular disease, unspecified Status: Acute (2) Gangrene of toe of left foot: Code(s): I96 - Gangrene, not elsewhere classified Status: Acute Plan 87-year-old man with Peripheral vascular disease Critical limb ischemia with tissue loss Appreciate input from vascular surgery patient is s/p CENTRAL OFFICE INSPECTOR and stenting of the left superficial femoral artery/left popliteal artery as well as left posterior tibial artery mechanical thrombectomy 04/15/18 Continue aspirin, Lipitor 40 mg nightly, Plavix times 6 weeks duration Gangrene of left second and third toes of the foot Appreciate input from podiatry Status post second and third toe amputation 04/18/18 Gram-negative [place] and wound culture Currently on cefepime and vancomycin Awaiting for final pathology report Superimposed cellulitis of the left foot Currently on cefepime and continue vancomycin. Gram-negative rods in wound culture Appreciate input from ID UTI-group D enterococcus Currently on IV antibiotics from above History of bladder cancer Hyperlipidemia BPH Hypertension Continue dutasteride 0.5 mg p.o. daily, tamsulosin 0.4 mg p.o. daily. Continue Lipitor 40 mg nightly. Continue nifedipine 30 mg daily. Full code. Lovenox. Progress Note: Quality VTE Deep Vein Thrombosis/Pulmonary Embolism Present on Admission: No
[2018-04-20] MEDS ORDERED: Vancomycin Inj 1,250 MG in Sodium Chlor 0.9% Inj 250 ML IV.SIG SCH (14:00)
[2018-04-20] MEDS: Enoxaparin Inj 40 MG/0.4 ML Syringe SQ SCH (14:06)
[2018-04-20] MEDS: Vancomycin Inj 1,500 MG in Sodium Chlor 0.9% Inj 500 ML IV.SIG SCH (14:07)
[2018-04-21] MEDS: Finasteride 5 MG Tablet PO SCH (08:24)
--- NOTE | 2018-04-21 09:33 | P.PNIM ---
Subjective Interval history: Follow-up critical limb ischemia with tissue loss/left second and third toe gangrene status post amputations/left foot cellulitis/peripheral vascular disease April 21, 2018 patient seen and examined, no acute event overnight denies any significant left lower extremity pain. Currently afebrile. Looking for possible discharge next week. Does not want to go to senior living facility Physical Exam Vital signs: Vital Signs 04/20/18 11:35 04/20/18 15:55 04/20/18 19:45 Temperature 98.1 F 98.1 F 98.2 F Pulse Rate 103 H 89 93 H Respiratory Rate 20 20 16 Blood Pressure 153/80 H 138/68 127/65 Pulse Oximetry 95 96 95 04/20/18 23:45 04/21/18 04:30 04/21/18 08:00 Temperature 97.2 F L 98.0 F 98.3 F Pulse Rate 83 89 86 Respiratory Rate 17 20 18 Blood Pressure 149/73 H 106/56 L 119/66 Pulse Oximetry 95 98 96 Intake & Output 04/20/18 04/21/18 04/21/18 18:59 06:59 18:59 Intake Total 715 / 715 100 / 100 Output Total 600 / 600 400 / 400 Balance 115 / 115 -300 / -300 Weight 66.4 kg Intake: IV 715 / 715 100 / 100 Maxipime Inj 2,000 MG In NS Inj 200 / 200 100 / 100 100 ML @ 200 mls/hr IV.SIG Q8H [facility] Rx#:[id number] Vancomycin Inj 1,500 MG In NS 515 / 515 Inj 500 ML @ 250 mls/hr IV.SIG Q24H [facility]ARYB[facility] Rx#:[id number] Output: Urine 600 / 600 400 / 400 Other: # Voids 2 Date of Last Bowel Movement 04/20/18 04/21/18 Narrative: GENERAL: NAD SKIN: Warm and dry. HEAD: Atraumatic. Normocephalic. EYES: Pupils equal and round. No scleral icterus. No injection or drainage. ENT: No nasal bleeding or discharge. Mucous membranes pink and moist. NECK: Trachea midline. No JVD. CARDIOVASCULAR: Regular rate and rhythm. RESPIRATORY: No accessory muscle use. Clear to auscultation. Breath sounds equal bilaterally. GASTROINTESTINAL: Abdomen soft, non-tender, nondistended. Hepatic and splenic margins not palpable. MUSCULOSKELETAL: Dressing over left foot NEUROLOGICAL: Awake and alert. No obvious cranial nerve deficits. Motor grossly within normal limits. Five out of 5 muscle strength in the arms and legs. Normal speech. PSYCHIATRIC: Appropriate mood and affect; insight and judgment normal. Results Labs CBC & Chem 7: 04/20/18 05:45 04/20/18 05:45 Labs: Microbiology 04/18/18 17:13 Wound - Foot Gram Stain - Final 04/18/18 17:13 Wound - Foot Wound Culture - Preliminary Pseudomonas aeruginosa gram negative rods Assessment and Plan (1) PVD (peripheral vascular disease): Code(s): I73.9 - Peripheral vascular disease, unspecified Status: Acute (2) Gangrene of toe of left foot: Code(s): I96 - Gangrene, not elsewhere classified Status: Acute Plan 87-year-old man with Peripheral vascular disease Critical limb ischemia with tissue loss Appreciate input from vascular surgery patient is s/p PARTNER MANAGEMENT CONSULTANT and stenting of the left superficial femoral artery/left popliteal artery as well as left posterior tibial artery mechanical thrombectomy 04/15/18 Continue aspirin, Lipitor 40 mg nightly, Plavix x 6 weeks duration Gangrene of left second and third toes of the foot Appreciate input from podiatry Status post second and third toe amputation 04/18/18 Wound culture positive for pseudomonas aeruginosa Currently on cefepime and vancomycin Awaiting for final pathology report Superimposed cellulitis of the left foot Currently on cefepime and continue vancomycin. Gram-negative rods in wound culture Appreciate input from ID UTI-group D enterococcus Currently on IV antibiotics from above History of bladder cancer Hyperlipidemia BPH Hypertension Continue dutasteride 0.5 mg p.o. daily, tamsulosin 0.4 mg p.o. daily. Continue Lipitor 40 mg nightly. Continue nifedipine 30 mg daily. Full code. Lovenox. Likely discharge next week home with home health care Progress Note: Quality VTE Deep Vein Thrombosis/Pulmonary Embolism Present on Admission: No
[2018-04-21] MEDS: Enoxaparin Inj 40 MG/0.4 ML Syringe SQ SCH (14:56)
[2018-04-21] MEDS: Vancomycin Inj 1,500 MG in Sodium Chlor 0.9% Inj 500 ML IV.SIG SCH (14:56)
--- NOTE | 2018-04-21 19:22 | P.PNIM ---
Subjective Interval history: Not seen. Follow-up for critical limb ischemia with tissue loss/left second and third toe gangrene status post amputation/left foot cellulitis/peripheral vascular disease Physical Exam Vital signs: Vital Signs 04/20/18 19:45 04/20/18 23:45 04/21/18 04:30 Temperature 98.2 F 97.2 F L 98.0 F Pulse Rate 93 H 83 89 Respiratory Rate 16 17 20 Blood Pressure 127/65 149/73 H 106/56 L Pulse Oximetry 95 95 98 04/21/18 08:00 04/21/18 12:00 04/21/18 16:00 Temperature 98.3 F 97.8 F 98.5 F Pulse Rate 86 109 H 87 Respiratory Rate 18 18 18 Blood Pressure 119/66 110/71 135/63 Pulse Oximetry 96 97 93 L Intake & Output 04/21/18 04/21/18 04/22/18 06:59 18:59 06:59 Intake Total 100 / 100 955 / 955 Output Total 400 / 400 250 / 250 Balance -300 / -300 705 / 705 Weight 66.4 kg Intake: IV 100 / 100 715 / 715 Maxipime Inj 2,000 MG In NS Inj 100 / 100 200 / 200 100 ML @ 200 mls/hr IV.SIG Q8H [facility] Rx#:[id number] Vancomycin Inj 1,500 MG In NS 515 / 515 Inj 500 ML @ 250 mls/hr IV.SIG Q24H [facility] Rx#:[id number] Oral 240 / 240 Output: Urine 400 / 400 250 / 250 Other: # Voids 2 1 Date of Last Bowel Movement 04/20/18 04/20/18 Narrative: GENERAL: NAD SKIN: Warm and dry. HEAD: Atraumatic. Normocephalic. EYES: Pupils equal and round. No scleral icterus. No injection or drainage. ENT: No nasal bleeding or discharge. Mucous membranes pink and moist. NECK: Trachea midline. No JVD. CARDIOVASCULAR: Regular rate and rhythm. RESPIRATORY: No accessory muscle use. Clear to auscultation. Breath sounds equal bilaterally. GASTROINTESTINAL: Abdomen soft, non-tender, nondistended. Hepatic and splenic margins not palpable. MUSCULOSKELETAL: Dressing over left foot NEUROLOGICAL: Awake and alert. No obvious cranial nerve deficits. Motor grossly within normal limits. Five out of 5 muscle strength in the arms and legs. Normal speech. PSYCHIATRIC: Appropriate mood and affect; insight and judgment normal. Results Labs CBC & Chem 7: 04/22/18 10:02 04/22/18 10:02 Labs: Microbiology 04/18/18 17:13 Wound - Foot Gram Stain - Final 04/18/18 17:13 Wound - Foot Wound Culture - Final Pseudomonas aeruginosa Enterobacter cloacae Imaging Imaging: ITS Impressions Extremity Arterial Study 04/12/18 00:00 CONCLUSION: Severely compromised runoff on the left. Satisfactory ankle index however moderate compromise of pedal circulation on the right Foot X-Ray 04/18/18 00:00 CONCLUSION: 1. Status post second and third toe amputation, as above. Procedures Procedures: s/p JUNIOR ACCOUNT EXECUTIVE and stenting of the left superficial femoral artery/left popliteal artery as well as left posterior tibial artery mechanical thrombectomy 04/15/18 Status post second and third toe amputation 04/18/18 Assessment and Plan (1) PVD (peripheral vascular disease): Code(s): I73.9 - Peripheral vascular disease, unspecified Status: Acute (2) Gangrene of toe of left foot: Code(s): I96 - Gangrene, not elsewhere classified Status: Acute Plan 87-year-old man with Peripheral vascular disease Critical limb ischemia with tissue loss Appreciate input from vascular surgery patient is s/p JUNIOR ACCOUNT EXECUTIVE and stenting of the left superficial femoral artery/left popliteal artery as well as left posterior tibial artery mechanical thrombectomy 04/15/18 Continue Plavix for 5 weeks, aspirin and Lipitor 40 mg nightly Gangrene of left second and third toes of the foot Appreciate input from podiatry Status post second and third toe amputation 04/18/18 Wound culture positive for pseudomonas aeruginosa Currently on cefepime and vancomycin Awaiting for final pathology report Superimposed cellulitis of the left foot Currently on cefepime and continue vancomycin. Gram-negative rods in wound culture Appreciate input from ID UTI-group D enterococcus Currently on IV antibiotics from above History of bladder cancer Hyperlipidemia BPH Hypertension Continue dutasteride 0.5 mg p.o. daily, tamsulosin 0.4 mg p.o. daily. Continue Lipitor 40 mg nightly. Continue nifedipine 30 mg daily. Full code. Lovenox. Likely discharge next week home with home health care Progress Note: Quality VTE Deep Vein Thrombosis/Pulmonary Embolism Present on Admission: No
[2018-04-22] MEDS: Finasteride 5 MG Tablet PO SCH (09:38)
[2018-04-22 10:25] LABS: Baso # (Auto) 0.1 th/mm3 (0.0-0.2); Eos # (Auto) 0.3 th/mm3 (0.0-0.4); Eos % (Auto) 2.7 % (0.0-4.0); Hematocrit 34.4 % (39.0-51.0); Hemoglobin 11.8 gm/dL (13.0-17.0); Lymph # (Auto) 1.5 th/mm3 (1.0-4.8); Lymph % (Auto) 12.2 % (9.0-44.0); Mean Corpuscular HGB Conc 34.3 % (32.0-36.0); Mean Corpuscular Hemoglobin 31.1 pg (27.0-34.0); Mean Corpuscular Volume 90.8 fL (80.0-100.0); Mean Platelet Volume 7.3 fL (7.0-11.0); Mono % (Auto) 8.2 % (0.0-8.0); Neut # (Auto) 9.4 th/mm3 (1.8-7.7); Neut % (Auto) 75.9 % (16.0-70.0); Platelet Count 534 th/mm3 (150-450); Red Blood Count 3.79 mil/mm3 (4.50-5.90); Red Cell Distribution Width 12.8 % (11.6-17.2); White Blood Count 12.4 th/mm3 (4.0-11.0)
[2018-04-22 10:46] LABS: Albumin 2.7 g/dL (3.4-5.0); Anion Gap 6 meq/L (5-15); Blood Urea Nitrogen 22 mg/dL (7-18); Calcium 8.7 mg/dL (8.5-10.1); Carbon Dioxide 26.3 meq/L (21.0-32.0); Chloride 108 meq/L (98-107); Glucose,Random 102 mg/dL (74-106); Potassium 3.7 meq/L (3.5-5.1); Sodium 140 meq/L (136-145)
[2018-04-22 10:51] LABS: Alanine Aminotransferase 22 U/L (12-78); Alkaline Phosphatase 84 U/L (45-117); Aspartate Aminotransferase 24 U/L (15-37); Glomerular Filtration Rate 66 mL/min (>89)
--- NOTE | 2018-04-22 12:42 | P.PNIM ---
Subjective Interval history: Follow-up limb ischemia. He is doing okay ambulating in the room. Wondering when the surgeon will check his wound. Physical Exam Vital signs: Vital Signs 04/21/18 16:00 04/22/18 00:15 04/22/18 04:25 Temperature 98.5 F 98.6 F 98.2 F Pulse Rate 87 69 80 Respiratory Rate 18 18 18 Blood Pressure 135/63 105/55 L 129/67 Pulse Oximetry 93 L 95 95 04/22/18 07:30 04/22/18 11:50 Temperature 97.7 F 97.7 F Pulse Rate 100 H 122 H Respiratory Rate 20 20 Blood Pressure 114/71 133/76 Pulse Oximetry 100 100 Intake & Output 04/21/18 04/22/18 04/22/18 18:59 06:59 18:59 Intake Total 955 / 955 100 / 100 Output Total 250 / 250 1100 / 1100 Balance 705 / 705 -1000 / -1000 Weight 69.8 kg Intake: IV 715 / 715 100 / 100 Maxipime Inj 2,000 MG In NS Inj 200 / 200 100 / 100 100 ML @ 200 mls/hr IV.SIG Q8H [facility] Rx#:[id number] Vancomycin Inj 1,500 MG In NS 515 / 515 Inj 500 ML @ 250 mls/hr IV.SIG Q24H [facility] Rx#:[id number] Oral 240 / 240 Output: Urine 250 / 250 1100 / 1100 Other: # Voids 1 1 Date of Last Bowel Movement 04/20/18 # Bowel Movements 1 Narrative: GENERAL: NAD SKIN: Warm and dry. CARDIOVASCULAR: Regular rate and rhythm. RESPIRATORY: No accessory muscle use. Clear to auscultation. Breath sounds equal bilaterally. GASTROINTESTINAL: Abdomen soft, non-tender, nondistended. MUSCULOSKELETAL: Dressing over left foot NEUROLOGICAL: Awake and alert. No obvious cranial nerve deficits. Motor grossly within normal limits. Five out of 5 muscle strength in the arms and legs. Normal speech. PSYCHIATRIC: Appropriate mood and affect; insight and judgment normal. Results Labs CBC & Chem 7: 04/22/18 10:02 04/22/18 10:02 Labs: Microbiology 04/18/18 17:13 Wound - Foot Gram Stain - Final 04/18/18 17:13 Wound - Foot Wound Culture - Final Pseudomonas aeruginosa Enterobacter cloacae Procedures Procedures: s/p AVIAN KEEPER and stenting of the left superficial femoral artery/left popliteal artery as well as left posterior tibial artery mechanical thrombectomy 04/15/18 Status post second and third toe amputation 04/18/18 Assessment and Plan (1) PVD (peripheral vascular disease): Code(s): I73.9 - Peripheral vascular disease, unspecified Status: Acute (2) Gangrene of toe of left foot: Code(s): I96 - Gangrene, not elsewhere classified Status: Acute Plan 87-year-old man with Peripheral vascular disease Critical limb ischemia with tissue loss Appreciate input from vascular surgery patient is s/p AVIAN KEEPER and stenting of the left superficial femoral artery/left popliteal artery as well as left posterior tibial artery mechanical thrombectomy 04/15/18 Continue Plavix for 5 weeks, aspirin and Lipitor 40 mg nightly Gangrene of left second and third toes of the foot Appreciate input from podiatry Status post second and third toe amputation 04/18/18 Wound culture positive for pseudomonas aeruginosa and Enterobacter [place] sensitive to cefepime and vancomycin Awaiting for final pathology report Superimposed cellulitis of the left foot Currently on cefepime and vancomycin. Appreciate input from ID UTI-group D enterococcus Currently on IV antibiotics from above History of bladder cancer Hyperlipidemia BPH Hypertension Continue dutasteride 0.5 mg p.o. daily, tamsulosin 0.4 mg p.o. daily. Continue Lipitor 40 mg nightly. Continue nifedipine 30 mg daily. Restart metoprolol patient tachycardia Full code. Lovenox. Discharge home with home health care pending pathology Progress Note: Quality VTE Deep Vein Thrombosis/Pulmonary Embolism Present on Admission: No
--- NOTE | 2018-04-22 14:12 | P.DCO ---
Diagnosis (1) PVD (peripheral vascular disease): Status: Acute (2) Gangrene of toe of left foot: Status: Acute Physical Therapy Order: Evaluate and treat, Improve ambulation and Strength and gait training Home Health Nursing Order: Medical education, Signs/symptoms of disease process, Medication education-adverse effect, Wound care and dressing changes and Nursing assessment with vital signs Case Management Consult Case Management Consult-Home Health: Yes I have seen patient Terry Thompson on 04/22/18. My clinical findings support the need for the requested home health care services because: Limited mobility due to disease progression I certify that my clinical findings support that this patient is homebound because: Unsafe to leave home unassisted
[2018-04-22] MEDS: Vancomycin Inj 1,500 MG in Sodium Chlor 0.9% Inj 500 ML IV.SIG SCH (17:26)
[2018-04-22] MEDS: Metoprolol Tartrate 50 MG Tablet PO SCH (17:27)
[2018-04-22] MEDS: Enoxaparin Inj 40 MG/0.4 ML Syringe SQ SCH (17:27)
[2018-04-23] MEDS: Metoprolol Tartrate 50 MG Tablet PO SCH (08:19)
[2018-04-23] MEDS: Finasteride 5 MG Tablet PO SCH (08:20)
--- NOTE | 2018-04-23 08:51 | P.PNADD ---
Addendum to Inpatient Note Reason for Addendum: Additional Documentation Additional information: felipa gonzales await path to decide oral vs IV antibiotic recommendations.
[2018-04-23] MEDS ORDERED: Pharmacy Ordered Lab Info OTHER ONE (13:45)
--- NOTE | 2018-04-23 14:59 | P.PNIM ---
Subjective Interval history: Follow-up foot infection. No new complaints eager to go home awaiting pathology discussed with ID Physical Exam Vital signs: Vital Signs 04/22/18 15:55 04/22/18 20:15 04/23/18 01:10 Temperature 98.3 F 98.1 F 98.5 F Pulse Rate 97 H 73 76 Respiratory Rate 20 16 17 Blood Pressure 125/61 134/70 127/77 Pulse Oximetry 98 100 97 04/23/18 05:35 04/23/18 08:00 04/23/18 12:40 Temperature 98.3 F 98.1 F 97.9 F Pulse Rate 75 78 72 Respiratory Rate 17 20 20 Blood Pressure 131/69 134/71 133/65 Pulse Oximetry 97 99 96 Intake & Output 04/22/18 04/23/18 04/23/18 18:59 06:59 18:59 Intake Total 820 / 820 715 / 715 100 / 100 Output Total 900 / 900 Balance 820 / 820 -185 / -185 100 / 100 Weight 67.4 kg Intake: IV 100 / 100 715 / 715 100 / 100 Maxipime Inj 2,000 MG In NS Inj 100 / 100 200 / 200 100 / 100 100 ML @ 200 mls/hr IV.SIG Q8H [facility] Rx#:[id number] Vancomycin Inj 1,500 MG In NS 515 / 515 Inj 500 ML @ 250 mls/hr IV.SIG Q24H [facility] Rx#:[id number] Oral 720 / 720 Output: Urine 900 / 900 Other: # Voids 4 Date of Last Bowel Movement 04/20/18 04/22/18 04/22/18 # Bowel Movements 1 Narrative: GENERAL: NAD SKIN: Warm and dry. CARDIOVASCULAR: Regular rate and rhythm. RESPIRATORY: No accessory muscle use. Clear to auscultation. Breath sounds equal bilaterally. GASTROINTESTINAL: Abdomen soft, non-tender, nondistended. MUSCULOSKELETAL: Dressing over left foot NEUROLOGICAL: Awake and alert. No obvious cranial nerve deficits. Motor grossly within normal limits. Five out of 5 muscle strength in the arms and legs. Normal speech. PSYCHIATRIC: Appropriate mood and affect; insight and judgment normal. Results Labs CBC & Chem 7: 04/22/18 10:02 04/22/18 10:02 Procedures Procedures: s/p MERCHANDISER RETAIL REPRESENTATIVE and stenting of the left superficial femoral artery/left popliteal artery as well as left posterior tibial artery mechanical thrombectomy 04/15/18 Status post second and third toe amputation 04/18/18 Assessment and Plan (1) PVD (peripheral vascular disease): Code(s): I73.9 - Peripheral vascular disease, unspecified Status: Acute (2) Gangrene of toe of left foot: Code(s): I96 - Gangrene, not elsewhere classified Status: Acute Plan 87-year-old man with Peripheral vascular disease Critical limb ischemia with tissue loss Appreciate input from vascular surgery patient is s/p MERCHANDISER RETAIL REPRESENTATIVE and stenting of the left superficial femoral artery/left popliteal artery as well as left posterior tibial artery mechanical thrombectomy 04/15/18 Continue Plavix for 5 weeks, aspirin and Lipitor 40 mg nightly Gangrene of left second and third toes of the foot Appreciate input from podiatry Status post second and third toe amputation 04/18/18 Wound culture positive for pseudomonas aeruginosa and Enterobacter [place] sensitive to cefepime and vancomycin Awaiting for final pathology report Superimposed cellulitis of the left foot Currently on cefepime and vancomycin. Appreciate input from ID UTI-group D enterococcus Currently on IV antibiotics from above History of bladder cancer Hyperlipidemia BPH Hypertension Continue dutasteride 0.5 mg p.o. daily, tamsulosin 0.4 mg p.o. daily. Continue Lipitor 40 mg nightly. Continue nifedipine 30 mg daily. Restart metoprolol patient tachycardia Full code. Lovenox. Discharge home with home health care pending pathology Progress Note: Quality VTE Deep Vein Thrombosis/Pulmonary Embolism Present on Admission: No
[2018-04-23] MEDS: Enoxaparin Inj 40 MG/0.4 ML Syringe SQ SCH (15:40)
--- NOTE | 2018-04-23 22:58 | P.PNADD ---
Addendum to Inpatient Note Additional information: Discontinue Zofran QT interval on 12 lead EKG less than 400 QTc. Will have review it again in am. If QTC ok then ok to discharge home on oral levaquin 500 mg po daily for 10 additional days. Path reviewed and margins clear. Will sign off please call back if any change in clinical condition or questions. ,
[2018-04-24] MEDS: Metoprolol Tartrate 50 MG Tablet PO SCH (08:09)
[2018-04-24] MEDS: Finasteride 5 MG Tablet PO SCH (08:09)
[2018-04-24] MEDS ORDERED: levoFLOXacin 500 MG Tablet PO SCH (09:00)
--- NOTE | 2018-04-24 12:28 | P.DS ---
DS: Providers Date of admission: 04/12/18 13:19 Primary care physician: Flaco Horowitz DO Consults: 04/12/18 13:30 Consult to Vascular Surgery Routine Consulting Provider: Sai Roberson Preferred Busboy:: Sai Roberson Patient known to:: Sai Roberson Reason for Consultation: Discussed with Dr. Roberson regarding possible PVD. Podiatry apparently recommended a Vasc surgery eval. Notified:: Physician Spoke with:: DR. ROBERSON Date Notified:: 04/12/18 Time Notified:: 13:33 Ordering Provider: CHIN 04/12/18 15:43 Consult to Infectious Diseases Routine Consulting Provider: Mohini Vo Reason for Consultation: left foot cellulitis. WBC 13.9. Started patient on Ancef and Vanco. Vascular consulted. Notified:: Service Spoke with:: TEE Date Notified:: 04/12/18 Time Notified:: 15:52 Ordering Provider: CHIN 04/15/18 14:14 Consult to Podiatry Routine Consulting Provider: Rena Fernandez Preferred Busboy:: Seth Cash Reason for Consultation: eval and treat left foot Notified:: Office Spoke with:: Yulia Date Notified:: 04/15/18 Time Notified:: 14:16 Ordering Provider: DOROTHY 04/23/18 16:00 HUB Only Consult Order Routine Consulting Provider: Dm Cordero Brief History from admission: Mr. Thompson is a pleasant 87-year-old male with a history of hypertension, hyperlipidemia who presents to the emergency department on 04/12/2018 due to left leg discomfort as well as color change. Patient noticed his symptoms about a month ago. He was evaluated by a machine or machinery mechanic who recommended a vascular surgery evaluation. Patient was supposed to go to [facility] vascular surgeon Dr. Woodard. However, due to worsening left foot pain and discoloration he went to his primary care physician who recommended him to come to the emergency department. Patient denies any fever or chills. Denies any chest pain, shortness of breath. No changes in bowel or bladder habits. Past medical history: BPH, hypertension, hyperlipidemia, bladder cancer Past surgical history: Cataract surgery, appendectomy, tonsillectomy, bladder cancer surgery Family history: MotherAlzheimer's disease, fatheraortic aneurysm. Social history: Patient smokes a pack a day. Drinks socially. DS: Diagnosis Discharge Diagnosis (1) PVD (peripheral vascular disease): Status: Acute (2) Gangrene of toe of left foot: Status: Acute DS: Summary 87-year-old man with Peripheral vascular disease Critical limb ischemia with tissue loss Appreciate input from vascular surgery patient is s/p [employer] and stenting of the left superficial femoral artery/left popliteal artery as well as left posterior tibial artery mechanical thrombectomy 04/15/18 Continue Plavix for 5 weeks, aspirin and Lipitor 40 mg nightly Gangrene of left second and third toes of the foot Appreciate input from podiatry 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 ID recommends Levaquin p.o. for 10 more days Superimposed cellulitis of the left foot Levaquin outpatient discontinue cefepime and vancomycin. Appreciate input from ID UTI-group D enterococcus Currently on antibiotics from above History of bladder cancer Hyperlipidemia BPH Hypertension Continue dutasteride 0.5 mg p.o. daily, tamsulosin 0.4 mg p.o. daily. Continue Lipitor 40 mg nightly. Continue nifedipine 30 mg daily. Restart metoprolol patient tachycardia Full code. Lovenox. Time Spent with Patient Total time spent providing and/or coordinating discharge services: Greater than 30 minutes Quality: VTE Deep Vein Thrombosis/Pulmonary Embolism Present on Admission: No Exam Narrative Exam Narrative: GENERAL: NAD SKIN: Warm and dry. CARDIOVASCULAR: Regular rate and rhythm. RESPIRATORY: No accessory muscle use. Clear to auscultation. Breath sounds equal bilaterally. GASTROINTESTINAL: Abdomen soft, non-tender, nondistended. MUSCULOSKELETAL: Dressing over left foot NEUROLOGICAL: Awake and alert. No obvious cranial nerve deficits. Motor grossly within normal limits. Five out of 5 muscle strength in the arms and legs. Normal speech. PSYCHIATRIC: Appropriate mood and affect; insight and judgment normal. Results Procedures completed during hospitalization: s/p [employer] and stenting of the left superficial femoral artery/left popliteal artery as well as left posterior tibial artery mechanical thrombectomy 04/15/18 Status post second and third toe amputation 04/18/18 Completed studies during hospitalization: Pending at discharge 04/18/18 07:45 Surgical [PTH] Routine Impressions ITS Impressions Extremity Arterial Study 04/12/18 00:00 CONCLUSION: Severely compromised runoff on the left. Satisfactory ankle index however moderate compromise of pedal circulation on the right Foot X-Ray 04/18/18 00:00 CONCLUSION: 1. Status post second and third toe amputation, as above. Discharge Plan Discharge Disposition Patient Disposition: W/Home Health Service Discharge Condition Condition: Stable Discharge Order Discharge Orders: Discharge Order (Routine); Ordered 04/24/18 Ordered By: Gerson Perry Physicians Team Primary Care Provider: Flaco Horowitz Attending Provider: Gerson Perry Other Providers: Mohini Vo ; Sai Roberson ; Rena Fernandez ; Hermes [facility] Rxs /Orders / Referrals /Forms Prescriptions: New clopidogrel [Plavix] 75 mg Tablet 1 mg/kg PO DAILY Qty: 45 RF: 0 nifedipine 30 mg Tablet Extended Release 24hr 30 mg PO DAILY Qty: 30 RF: 0 aspirin 81 mg Tablet,Delayed Release (Dr/Ec) 81 mg PO DAILY Qty: 30 RF: 0 levofloxacin 500 mg Tablet 500 mg PO DAILY Qty: 10 RF: 0 Continue metoprolol tartrate 50 mg Tablet 50 mg PO DAILY RF: 0 pravastatin 20 mg Tablet 20 mg PO DAILY RF: 0 dutasteride 0.5 mg Capsule 0.5 mg PO DAILY RF: 0 tamsulosin 0.4 mg Capsule 0.4 mg PO DAILY RF: 0 Referrals: Flaco Horowitz DO [Primary Care Provider] - 04/29/18 1:15 pm Rena Fernandez DPM [Physician] - 04/25/18 10:00 am (Follow-up in 1-2-week) Sai Roberson MD [Physician] - See Instructions (Your post operative follow up with a surveillance RANDALL is scheduled on: RANDALL Exam: 04/30/18 at 1:00 Post Op Follow : 05/01/18 at 2:00) Discharge Instructions Patient Printed Instructions: Nifedipine (By mouth), Aspirin (By mouth), Levofloxacin (By mouth), Clopidogrel (By mouth), Toe Amputation (DC), Angiogram (DC) Post Discharge Care Plan Care Plan Goals: Your Health Problems: Goals to Promote Your Health: * To prevent worsening of your condition * To maintain your health at the optimal level Directions to Meet Your Goals: * Take your medications as prescribed * Follow your dietary instruction * Follow activity as directed * Keep your appointments as scheduled * Take your immunizations and boosters as scheduled * If your symptoms worsen call your PCP * If no PCP go to Urgent Care or Emergency Room Smoking is dangerous to your health. Avoid second hand smoke. You may reach the 24-hour crisis hotline for domestic abuse at . Status ED Status: Left Department
[2018-04-24] MEDS: Enoxaparin Inj 40 MG/0.4 ML Syringe SQ SCH (15:31)
[2018-04-24 16:47] VITALS: BP 124/61; PULSE 74; RESP 20; TEMP 98; O2SAT 98
== END 2018-04-24 19:01 | disposition home health service (06) | DRG 271 ==
LOC: NEPC 10:50 → NEDA 13:19 → N05 17:03
PROVIDERS: ADMIT Internal Medicine; ATTEND Internal Medicine
PROC: ANGIOLE (2018-04-15 13:00)
DX: N40.0 Benign prostatic hyperplasia without lower urinary tract symptoms; Z79.899 Other long term (current) drug therapy; N39.0 Urinary tract infection, site not specified; I70.92 Chronic total occlusion of artery of the extremities; I99.8 Other disorder of circulatory system; I96 Gangrene, not elsewhere classified; R00.0 Tachycardia, unspecified; L03.116 Cellulitis of left lower limb; B95.2 Enterococcus as the cause of diseases classified elsewhere; Z82.0 Family history of epilepsy and other diseases of the nervous system; Z85.51 Personal history of malignant neoplasm of bladder; E78.5 Hyperlipidemia, unspecified; I70.202 Unspecified atherosclerosis of native arteries of extremities, left leg; I10 Essential (primary) hypertension; F17.210 Nicotine dependence, cigarettes, uncomplicated
CPT/HCPCS: 37184; 37226; 73630; 75625; 75710; 80053; 80202; 81001; 82565; 84145; 85025; 85610; 85651; 85652; 85730; 87015; 87040; 87070; 87077; 87086; 87102; 87116; 87186; 87205; 87206; 88305; 88311; 93005; 93922; 99152; 99153; 99285; C1725; C1751; C1757; C1760; C1769; C1876; C1893; G0269; J0690; J0692; J1580; J1644; J1650; J2001; J2250; J2543; J2704; J3010; J3370; J7040; J7050; J7120; L3250; Q9967